=== PATIENT | female | born 1990 | race American Indian/Alaskan Native ===

== ENCOUNTER 2017-05-31 14:02 | Emergency (ER) | payer SELFPAY ==
[2017-05-31] MEDS ORDERED: ROCEPHIN IM ONE (15:52)
[2017-05-31] MEDS ORDERED: ZITHROMAX PO ONE (15:52)
[2017-05-31] MEDS ORDERED: XYLOCAINE 1% MPF 5 mL INFILTRATI ONE (15:52)
[2017-05-31 15:53] LABS: Bacteria,Urine 1+ /HPF (Negative); Bilirubin,Urine NEG (Negative); Blood,Urine NEG (Negative); Ketones,Urine NEG (Negative); Leukocyte Esterase,Urine NEG (Negative); Mucus,Urine 2+ /HPF; Nitrite,Urine NEG (Negative); Protein,Urine <15 mg/dL mg/dL (Negative)
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
[2017-05-31 17:33] VITALS: BP 132/82
== END 2017-05-31 17:33 | disposition home or self-care (01) ==
LOC: ED 14:02
DX: Z20.2 Contact with and (suspected) exposure to infections with a predominantly sexual mode of transmission (principal); R03.0 Elevated blood-pressure reading, without diagnosis of hypertension; F17.200 Nicotine dependence, unspecified, uncomplicated
CPT/HCPCS: 81001; 81025; 87591; 96372; 99283; J0696

== ENCOUNTER 2017-07-04 05:02 | Emergency (ER) | payer OTHER ==
[2017-07-04 05:16] VITALS: BP 127/80
[2017-07-04] MEDS ORDERED: DELTASONE PO ONE (08:36)
[2017-07-04] MEDS ORDERED: MOTRIN PO ONE (08:37)
--- NOTE | 2017-07-04 08:46 | Emergency Department Report ---
HPI - General Chief Complaint: Sore Throat Time Seen by Provider: 07/04/17 08:14 - HPI HPI: Patient is a 26-year-old female who presents to ED complaining of throat pain 4 days. Patient describes pain as throbbing in nature, 6 out of 10 intensity, nonradiating, intermittent throughout the day, localized to throat. Admits pain with swallowing and eating. Patient admits no appetite due to throat pain. Patient states she has urge to cough but cant cough most times. Patient also complains of left ear ache . Patient denies nausea/vomiting/abdominal pain/shortness of breath/chest pain/ headache/trauma. ED Past Medical Hx - Past Medical History Previous Medical History?: No Hx Kidney Stones: Yes - Surgical History Past Surgical History?: Yes Additional Surgical History: gallstones - Social History Smoking Status: Current Every Day Smoker Substance Use Type: None - Medications Home Medications: Home Medications Medication Instructions Recorded Confirmed Last Taken Type Cyclobenzaprine HCl [Flexeril 5 MG 5 mg PO Q8HR PRN #12 tab 10/30/15 Unknown Rx TAB] Carbamide Peroxide 6.5% [Ear Wax 1 - 2 drops OT TID #1 bottle 07/04/17 Unknown Rx Drops] Ibuprofen [Motrin 800 MG tab] 800 mg PO Q8HR PRN #20 tablet 07/04/17 Unknown Rx guaiFENesin [Robitussin] 200 mg PO Q4HR #80 ml 07/04/17 Unknown Rx ED Review of Systems ROS: Stated complaint: SORE THROAT Other details as noted in HPI Constitutional: denies: chills, fever Eyes: denies: eye pain, eye discharge, vision change ENT: throat pain. denies: ear pain, hearing loss, epistaxis, congestion Respiratory: denies: cough, shortness of breath, wheezing Cardiovascular: denies: chest pain, palpitations Endocrine: no symptoms reported Gastrointestinal: denies: abdominal pain, nausea, vomiting, diarrhea Genitourinary: denies: urgency, dysuria, frequency, hematuria, discharge Musculoskeletal: myalgia. denies: back pain, joint swelling, arthralgia Skin: denies: rash, lesions Neurological: denies: headache, weakness, numbness, paresthesias, confusion, abnormal gait Psychiatric: denies: anxiety, depression Hematological/Lymphatic: denies: easy bleeding, easy bruising Physical Exam - Physical Exam Vital Signs: Vital Signs 07/04/17 05:12 Temperature 97.6 F Pulse Rate 78 Respiratory 18 Rate Blood Pressure 127/80 O2 Sat by Pulse 98 Oximetry Physical Exam: GENERAL: Alert and oriented x3, no apparent distress, Normal Gait, atraumatic. HEAD: Head is normocephalic and a-traumatic. EYES: Extra ocular muscles are intact. Pupils are equal, round, and reactive to light and accommodation. EARS: symetrical, atraumatic, non tender, ear canal filled with moderate cerumen bilat , tympanic membrance non inflamed. gross auditory nml bilaterally. NOSE: Nose symetrical, Nontender,Nares appeared normal. MOUTH:Mouth is well hydrated and without lesions. Tonsils nonerythematous or swollen, Uvula midline, Tongue not elevated. Mucous membranes are moist. Posterior pharynx clear, no exudate or lesions. Patent airways. NECK: Supple. Non edematous, No lymphadenopathy or thyromegaly. No C-spine tenderness LUNGS: Symetrical with respiration, No wheezing, no rales or crackles, CTAB. HEART: S1, S2 present, regular rate and rhythm without murmur, no rubs, no gallops. Non tender to palpation BACK: Full range of motion, no spinal tenderness, nontender to palpation. NEUROLOGIC: The patient is cooperative with no focal neurologic deficits. SKIN: Warm and dry, No lesions, No ulceration or induration present. ED Course Vital Signs 07/04/17 05:12 Temperature 97.6 F Pulse Rate 78 Respiratory 18 Rate Blood Pressure 127/80 O2 Sat by Pulse 98 Oximetry ED Medical Decision Making - Medical Decision Making 26-year-old male presents with pharyngitis. ED course: Rapid strep tests ordered rapid strep test negative, rapid influenza A/B negative Patient received 1 dose of Motrin, 60 mg of prednisone. Vital signs stable patient is in no acute or respiratory distress. Discussed findings with patient about the positive strep. Discussed treatment in ED with patient Discussed with the patient to increase fluid intake, vitamin C and appropriate rest Discussed home prescription for Ear wax drops for ears. Discussed with patient follow-up with primary care physician. Patient verbally states he understands and will comply to follow-up. Critical care attestation.: If time is entered above; I have spent that time in minutes in the direct care of this critically ill patient, excluding procedure time. ED Disposition Clinical Impression: Pharyngitis Qualifiers: Pharyngitis/tonsillitis etiology: unspecified etiology Qualified Code(s): J02.9 - Acute pharyngitis, unspecified Excess ear wax Qualifiers: Laterality: bilateral Qualified Code(s): H61.23 - Impacted cerumen, bilateral Disposition: TO HOME OR SELFCARE Is pt being admited?: No Does the pt Need Aspirin: No Condition: Stable Instructions: Carbamide Peroxide (Into the ear), Pharyngitis (ED), Cerumen Impaction (ED) Additional Instructions: Make sure to follow up with the primary care physician as discussed. Take all your medications as you've been prescribed. If you have any worsening symptoms or develop new symptoms please return to ED immediately. Prescriptions: Carbamide Peroxide 6.5% [Ear Wax Drops] 1 - 2 drops OT TID #1 bottle guaiFENesin [Robitussin] 200 mg PO Q4HR #80 ml Ibuprofen [Motrin 800 MG tab] 800 mg PO Q8HR PRN #20 tablet PRN Reason: Pain Referrals: PRIMARY CAREMD [Primary Care Provider] - 3-5 Days IRMA ROBLES MD [Staff Physician] - 3-5 Days [facility] [Outside] - 3-5 Days [facility] [Outside] - 3-5 Days Forms: Work/School Release Form(ED) Time of Disposition: 08:56
== END 2017-07-04 09:13 | disposition home or self-care (01) ==
LOC: ED 05:02
DX: J02.9 Acute pharyngitis, unspecified (principal); H61.23 Impacted cerumen, bilateral; F17.200 Nicotine dependence, unspecified, uncomplicated
CPT/HCPCS: 87116; 87400; 87430; 99282; J7512

== ENCOUNTER 2017-10-13 17:51 | Emergency (ER) | payer MEDICAID, OTHER ==
[2017-10-13 18:29] LABS: Basophils % (Auto) 0.4 % (0.0-1.8); Eosinophils % (Auto) 0.5 % (0.0-4.3); Hematocrit 42.4 % (30.3-42.9); Hemoglobin 13.3 gm/dl (10.1-14.3); Lymphocytes # (Auto) 2.2 K/mm3 (1.2-5.4); Lymphocytes % (Auto) 31.7 % (13.4-35.0); Mean Corpuscular HGB Conc 31 % (30-34); Mean Corpuscular Volume 80 fl (79-97); Monocytes # (Auto) 0.4 K/mm3 (0.0-0.8); Platelet Count 186 K/mm3 (140-440); Red Blood Count 5.32 M/mm3 (3.65-5.03); Red Cell Distribution Width 16.2 % (13.2-15.2)
[2017-10-13 18:33] LABS: Mean Corpuscular Hemoglobin 25 pg (28-32)
[2017-10-13 18:34] LABS: Bacteria,Urine 1+ /HPF (Negative); Bilirubin,Urine SM (Negative); Blood,Urine LG (Negative); Color,Urine Amber (Yellow); Mucus,Urine 3+ /HPF
[2017-10-13 18:36] LABS: HCG Qualitative,Urine Negative (Negative)
[2017-10-13 18:44] LABS: Ictotest,Urine Negative (Negative)
[2017-10-13 18:45] LABS: Alanine Aminotransferase 15 units/L (7-56); Albumin 4.9 g/dL (3.9-5); BUN/Creatinine Ratio 10; Blood Urea Nitrogen 8 mg/dL (7-17); Hemolysis Index 3; Lipase 22 units/L (13-60)
[2017-10-14] MEDS ORDERED: BACTRIM DS PO ONE (00:22)
[2017-10-14] MEDS ORDERED: TORADOL IM ONE (00:23)
--- NOTE | 2017-10-14 00:28 | Emergency Department Report ---
ED Abdominal Pain HPI - General Chief Complaint: Abdominal Pain Stated Complaint: ABDOMINAL PAIN Time Seen by Provider: 10/13/17 23:32 Source: patient Mode of arrival: Ambulatory Limitations: No Limitations - History of Present Illness Initial Comments: Percocet a month ago she missed a period however today she is presently bleeding and complain of abdominal pain he described. Area and also in the lower back moderate intensity and nonradiating with no aggravating or relieving factor. Patient also complains of a headache and shortness of breath. The headache is of mild to moderate intensity nonradiating with no aggravating or relieving factor. MD Complaint: abdominal pain Onset/Timin (day) -: Gradual Location: suprapubic Radiation: none Severity: moderate Quality: cramping Consistency: constant Improves With: nothing Worsens With: nothing Context: other (menstruation) Associated Symptoms: other (headache) - Related Data Previous Rx's Medication Instructions Recorded Last Taken Type Cyclobenzaprine HCl [Flexeril 5 MG 5 mg PO Q8HR PRN #12 tab 10/30/15 Unknown Rx TAB] Carbamide Peroxide 6.5% [Ear Wax 1 - 2 drops OT TID #1 bottle 07/04/17 Unknown Rx Drops] Ibuprofen [Motrin 800 MG tab] 800 mg PO Q8HR PRN #20 tablet 07/04/17 Unknown Rx guaiFENesin [Robitussin] 200 mg PO Q4HR #80 ml 07/04/17 Unknown Rx Sulfamethoxazole/Trimethoprim 1 each PO BID #6 tablet 10/14/17 Unknown Rx [Bactrim DS TAB] Allergies Allergy/AdvReac Type Severity Reaction Status Date / Time No Known Allergies Allergy Verified 10/30/15 01:09 ED Review of Systems ROS: Stated complaint: ABDOMINAL PAIN Other details as noted in HPI Comment: All other systems reviewed and negative ED Past Medical Hx - Past Medical History Hx Kidney Stones: Yes - Surgical History Additional Surgical History: gallstones - Social History Smoking Status: Current Every Day Smoker Substance Use Type: Alcohol - Medications Home Medications: Home Medications Medication Instructions Recorded Confirmed Last Taken Type Cyclobenzaprine HCl [Flexeril 5 MG 5 mg PO Q8HR PRN #12 tab 10/30/15 Unknown Rx TAB] Carbamide Peroxide 6.5% [Ear Wax 1 - 2 drops OT TID #1 bottle 07/04/17 Unknown Rx Drops] Ibuprofen [Motrin 800 MG tab] 800 mg PO Q8HR PRN #20 tablet 07/04/17 Unknown Rx guaiFENesin [Robitussin] 200 mg PO Q4HR #80 ml 07/04/17 Unknown Rx Sulfamethoxazole/Trimethoprim 1 each PO BID #6 tablet 10/14/17 Unknown Rx [Bactrim DS TAB] ED Physical Exam - General Limitations: No Limitations General appearance: alert, in no apparent distress - Head Head exam: Present: atraumatic, normocephalic - Eye Eye exam: Present: normal appearance - ENT ENT exam: Present: mucous membranes moist - Neck Neck exam: Present: normal inspection - Respiratory Respiratory exam: Present: normal lung sounds bilaterally. Absent: respiratory distress - Cardiovascular Cardiovascular Exam: Present: regular rate, normal rhythm. Absent: systolic murmur, diastolic murmur, rubs, gallop - GI/Abdominal GI/Abdominal exam: Present: soft, tenderness (suprapubic tenderness), normal bowel sounds - Rectal Rectal exam: Present: deferred - Extremities Exam Extremities exam: Present: normal inspection - Back Exam Back exam: Present: normal inspection - Neurological Exam Neurological exam: Present: alert, oriented X3 - Psychiatric Psychiatric exam: Present: normal affect, normal mood - Skin Skin exam: Present: warm, intact, normal color ED Course Vital Signs 10/13/17 17:59 Temperature 97.7 F Pulse Rate 77 Respiratory 18 Rate Blood Pressure 144/95 O2 Sat by Pulse 100 Oximetry ED Medical Decision Making - Lab Data Result diagrams: 10/13/17 18:13 10/13/17 18:13 Critical care attestation.: If time is entered above; I have spent that time in minutes in the direct care of this critically ill patient, excluding procedure time. ED Disposition Clinical Impression: UTI (urinary tract infection), Dysmenorrhea Disposition: - TO HOME OR SELFCARE Is pt being admited?: No Does the pt Need Aspirin: No Condition: Stable Instructions: Abdominal Pain (ED) Additional Instructions: Increase fluid intake. Take Motrin or Tylenol as needed for pain Prescriptions: Sulfamethoxazole/Trimethoprim [Bactrim DS TAB] 1 each PO BID #6 tablet Referrals: PRICILA WU MD [Primary Care Provider] - 3-5 Days Time of Disposition: 00:28 Print Language: MARTINIQUAIS
[2017-10-14 00:40] VITALS: BP 148/88
== END 2017-10-14 00:40 | disposition home or self-care (01) ==
LOC: ED 17:51
DX: N39.0 Urinary tract infection, site not specified (principal); N94.6 Dysmenorrhea, unspecified; F17.200 Nicotine dependence, unspecified, uncomplicated
CPT/HCPCS: 36415; 80053; 81001; 81025; 83690; 85025; 96372; 99283; J1885

== ENCOUNTER 2018-02-25 04:25 | Emergency (ER) | payer SELFPAY ==
[2018-02-25] MEDS ORDERED: ZOFRAN ONE (04:40)
[2018-02-25] MEDS ORDERED: DILAUDID ONE ×2 (04:40→05:29)
[2018-02-25] MEDS ORDERED: BOOSTRIX IM ONE ×2 (05:25→10:43)
[2018-02-25] MEDS ORDERED: DILAUDID IV ONE (08:12)
[2018-02-25] MEDS ORDERED: XYLOCAINE 2% INFILTRATI ONE (08:25)
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
[2018-02-25 08:49] LABS: BUN/Creatinine Ratio 8; Blood Urea Nitrogen 6 mg/dL (7-17); Calcium 9.4 mg/dL (8.4-10.2); Hemolysis Index 45
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
[2018-02-25] MEDS ORDERED: HYDROGEN PEROXIDE TP ONE (11:15)
[2018-02-25] MEDS ORDERED: NACL 0.9% IR ONE (11:15)
[2018-02-25] MEDS ORDERED: SUBLIMAZE IV ONE (11:30)
[2018-02-25] MEDS ORDERED: XYLOCAINE TOPICAL 5% TP ONE (11:42)
[2018-02-25] MEDS ORDERED: TRIPLE ANTIBIOTIC TP ONE (11:58)
[2018-02-25 13:52] VITALS: BP 135/88
== END 2018-02-25 12:30 | disposition home or self-care (01) ==
LOC: ED 04:25
DX: S71.112A Laceration without foreign body, left thigh, initial encounter (principal); F17.200 Nicotine dependence, unspecified, uncomplicated; Z79.899 Other long term (current) drug therapy; Z87.442 Personal history of urinary calculi; W23.0XXA Caught, crushed, jammed, or pinched between moving objects, initial encounter; Y93.89 Activity, other specified; Y99.8 Other external cause status; Y92.098 Other place in other non-institutional residence as the place of occurrence of the external cause
CPT/HCPCS: 12002; 36415; 73552; 73590; 80048; 82550; 86850; 86900; 86901; 90471; 90715; 96374; 96375; 99284; J1170; J2405; J3010; A6250

== ENCOUNTER 2019-08-25 20:01 | Outpatient (CLI) | payer MEDICAID ==
--- NOTE | 2019-08-25 22:37 | Ultrasound Report ---
ULTRASOUND OBSTETRIC INDICATION / CLINICAL INFORMATION: r/o abruption.. Clinical Gestational Age (GA): 31 weeks 1 day TECHNIQUE: Transabdominal. COMPARISON: None available. FINDINGS: There is a single intrauterine in cephalic position. The heart rate is 154 bpm. The p lacenta is posterior and fundal toward the left. Grade 2 placenta is noted. No significant abnormalit y of the placenta is identified. There is no sonographic evidence to suggest placental abruption. IMPRESSION: No acute sonographic abnormality. Signer Name: Dereck Cheema MD Signed: 08/25/2019 10:32 PM Workstation Name: [id number]
[2019-08-25 23:40] VITALS: BP 130/66
== END 2019-08-26 00:10 | disposition home or self-care (01) ==
LOC: TRG 20:01
PROVIDERS: ATTEND Obstetrics & Gynecology
DX: O26.893 Other specified pregnancy related conditions, third trimester (principal); R10.9 Unspecified abdominal pain; Z3A.31 31 weeks gestation of pregnancy
CPT/HCPCS: 76815

== ENCOUNTER 2019-10-02 18:46 | Outpatient (CLI) | payer MEDICAID ==
[2019-10-02 19:35] LABS: Hematocrit 33.3 % (30.3-42.9); Hemoglobin 10.9 gm/dl (10.1-14.3); Mean Corpuscular HGB Conc 33 % (30-34); Mean Corpuscular Volume 83 fl (79-97); Platelet Count 153 K/mm3 (140-440); Red Blood Count 4.01 M/mm3 (3.65-5.03); Red Cell Distribution Width 15.2 % (13.2-15.2)
[2019-10-02 19:55] LABS: Bacteria,Urine 1+ /HPF (Negative); Bilirubin,Urine NEG (Negative); Blood,Urine NEG (Negative); Color,Urine Yellow (Yellow); Mucus,Urine 2+ /HPF
[2019-10-02 19:59] LABS: Alanine Aminotransferase 13 units/L (7-56)
[2019-10-02 20:56] VITALS: BP 135/80
[2019-10-02] MEDS ORDERED: ACETAMINOPHEN 325 MG TAB PO ONE (22:10)
--- NOTE | 2019-10-02 23:05 | Event Note ---
Date: 10/02/19 Triage Note 10/02/2019 29 year old female at 36 4/7 weeks gestation sent over from office ([facility]-CORPORATE HUMAN RESOURCES MANAGER) for serial BPs and preeclamptic labs. She states she was given a jug at the office today to collect a 24 hour urine for total protein. Patient has chronic hypertension and states she takes Nifedipine daily. Patient denies swelling, visual disturbance, abdominal pain, leaking of fluid, vaginal bleeding or contractions. Patient reports active movement. Patient states she has had a mild headache today; oral Tylenol was given to patient in triage today with relief of headache. BPs stable and AST/ALT and platelet count normal. Patient reports complete resolution of headache. NST reactive. Active movement reported by patient. Abdomen soft and nontender. No swelling noted. Patient was discharged home with instructions to collect the 24 hour urine as ordered by OB-CORPORATE HUMAN RESOURCES MANAGER office, rest at home, count movements daily, and return to OB-CORPORATE HUMAN RESOURCES MANAGER office on Saturday10/05/2019 for follow up and BP check. Warning signs of late and BP warning signs discussed with patient. Patient voiced understanding of instructions.
[2019-10-03 00:16] LABS: Uric Acid 4.2 mg/dL (3.5-7.6)
== END 2019-10-02 22:41 | disposition home or self-care (01) ==
LOC: TRG 18:46
PROVIDERS: ATTEND Obstetrics & Gynecology
DX: O13.3 Gestational [pregnancy-induced] hypertension without significant proteinuria, third trimester (principal); Z3A.36 36 weeks gestation of pregnancy; N39.0 Urinary tract infection, site not specified
CPT/HCPCS: 36415; 81001; 82565; 83615; 84450; 84460; 84550; 85027; 87086

== ENCOUNTER 2019-10-08 20:50 | Inpatient (IN) | payer MEDICAID ==
[2019-10-08] MEDS ORDERED: LACTATED RINGERS 1,000 ML ONE (22:12)
[2019-10-08] MEDS ORDERED: MINERAL OIL 30 ML ORAL LIQD PO PRN (22:28)
[2019-10-08] MEDS ORDERED: ePHEDrine SULFATE 50 MG/1 ML INJ IV PRN (22:28)
[2019-10-08] MEDS ORDERED: AMPICILLIN/NS 2 GM/100 ML 2 GM/100 ML BAG IV ONE (22:28)
[2019-10-08] MEDS ORDERED: TERBUTALINE 1 MG/1 ML INJ IVP PRN (22:28)
[2019-10-08] MEDS ORDERED: LIDOCAINE (2%) 20 MG/1 ML VIAL 20 ML MDV INFILTRATI ONE (22:28)
[2019-10-08] MEDS ORDERED: BUTORPHANOL 2 MG/1 ML INJ IV PRN ×2 (22:28)
[2019-10-08] MEDS ORDERED: TERBUTALINE 1 MG/1 ML INJ SUB-Q PRN (22:28)
[2019-10-08] MEDS ORDERED: MAGNESIUM SULFATE 4 GM/100 ML BAG IV ONE (22:45)
[2019-10-08] MEDS ORDERED: OXYTOCIN 20 UNIT/1000ML DRIP 20 UNITS/1,000 ML BAG IV SCH (23:00)
[2019-10-08 23:01] LABS: Hematocrit 32.6 % (30.3-42.9); Hemoglobin 10.7 gm/dl (10.1-14.3); Mean Corpuscular HGB Conc 33 % (30-34); Mean Corpuscular Volume 83 fl (79-97); Platelet Count 148 K/mm3 (140-440); Red Blood Count 3.95 M/mm3 (3.65-5.03); Red Cell Distribution Width 15.1 % (13.2-15.2)
[2019-10-08] MEDS ORDERED: D5W/LACTATED RINGERS 1,000 ML IV ONE (23:48)
[2019-10-09] MEDS ORDERED: D5W/LACTATED RINGERS 1,000 ML IV SCH
[2019-10-09 00:49] LABS: Basophils % (Auto) 0.4 % (0.0-1.8); Eosinophils % (Auto) 0.7 % (0.0-4.3); Hematocrit 34.5 % (30.3-42.9); Hemoglobin 11.2 gm/dl (10.1-14.3); Lymphocytes # (Auto) 1.5 K/mm3 (1.2-5.4); Mean Corpuscular HGB Conc 32 % (30-34); Mean Corpuscular Volume 83 fl (79-97); Monocytes # (Auto) 0.5 K/mm3 (0.0-0.8); Monocytes % (Auto) 7.2 % (0.0-7.3); Platelet Count 168 K/mm3 (140-440); Red Blood Count 4.15 M/mm3 (3.65-5.03); Red Cell Distribution Width 15.5 % (13.2-15.2)
[2019-10-09] MEDS: LACTATED RINGERS 1,000 ML IV SCH ×2 (01:00→13:33)
[2019-10-09 01:09] LABS: Alanine Aminotransferase 17 units/L (7-56); Albumin 3.6 g/dL (3.9-5); BUN/Creatinine Ratio 16; Blood Urea Nitrogen 8 mg/dL (7-17); Hemolysis Index 3
--- NOTE | 2019-10-09 01:29 | History and Physical Report ---
History of Present Illness Date of examination: 10/08/19 Date of admission: 10/08/19 21:04 Chief complaint: 29 y/o AA female was sent by [facility] for an induction r/t CHTN. Pt denies any complaints and admits to active FM. Pt denies roth, visual problems, or epigastric pain. History of present illness: 29 y/o AA female presents at 37.2 wks per [facility] referral for an induction r/t CHTN. [facility] @ 5 2/7 wks. She was co managed by [facility] and [facility] for CHTN and marginal placenta previa. Pt was started on Procardia XL 60MG qd early in her preg. Other diagnosis include pos GBS, genital herpes, pos HBsAg, anemia, and vit D def. Labs: A pos, Antibody screen neg, pap normal, Rubella immune, VDRL neg, HIV neg, Hep C neg, HGB Electrophoresis AA, GC/chly/Trich neg, Vit D 14.3, Neg OSB, 1 hr gtt 79, GBS pos, Pos HBsAg, 24 hr urine 218 on 10/05. PUI?: No COVID19: Negative Past History Past Medical History: hypertension, other (Hep A, pos HBsAg ) Past Surgical History: no surgical history HOME DESIGNER History: chlamydia, hepatitis B, herpes Family/Genetic History: heart disease Social history: no significant social history - Obstetrical History Expected Date of Delivery: 10/27/19 Actual Gestation: 37 Week(s) 3 Day(s) : 2 Para: 1 Hx # Term Pregnancies: 1 Number of Pregnancies: 0 Spontaneous Abortions: 0 Induced : 0 Number of Living Children: 1 #1 Infant Gender: Female Method of Delivery: Vaginal Complications: other (htn) Medications and Allergies Allergies Allergy/AdvReac Type Severity Reaction Status Date / Time No Known Allergies Allergy Verified 10/02/19 19:13 Home Medications Medication Instructions Recorded Confirmed Last Taken Type Cyclobenzaprine HCl [Flexeril 5 MG 5 mg PO Q8HR PRN #12 tab 10/30/15 Unknown Rx TAB] Carbamide Peroxide 6.5% [Ear Wax 1 - 2 drops OT TID #1 bottle 07/04/17 Unknown Rx Drops] Ibuprofen [Motrin 800 MG tab] 800 mg PO Q8HR PRN #20 tablet 07/04/17 Unknown Rx Sulfamethoxazole/Trimethoprim 1 each PO BID #6 tablet 10/14/17 Unknown Rx [Bactrim DS TAB] Ondansetron [Zofran Odt] 4 mg PO Q8HR PRN #14 tab.rapdis 02/25/18 Unknown Rx cephALEXin [Keflex] 500 mg PO Q8HR #28 cap 02/25/18 Unknown Rx traMADoL [Ultram 50 MG tab] 50 mg PO Q4HR PRN #14 tablet 02/25/18 Unknown Rx Cholecalciferol (Vitamin D3) 10/02/19 Unknown History [Vitamin D3 50,000UNIT CAP] Ferrous Sulfate [Feosol 325 MG tab] 10/02/19 1 Day Ago History ~10/01/19 NIFEdipine XL [Procardia Xl] 10/02/19 1 Day Ago History ~10/01/19 Valacyclovir HCl [Valacyclovir] 10/02/19 10/02/19 History Active Meds: Active Medications Butorphanol Tartrate (Stadol) 1 mg IV Q2H PRN PRN Reason: Labor Pain Butorphanol Tartrate (Stadol) 2 mg IV Q2H PRN PRN Reason: Pain , Severe (7-10) Ephedrine Sulfate (Ephedrine Sulfate) 10 mg IV Q2M PRN PRN Reason: Hypotension Ferrous Sulfate (Feosol) 325 mg PO BID MICHELET Oxytocin/Sodium Chloride (Pitocin/Ns 20 Unit/1000ml Drip) 20 units in 1,000 mls @ 125 mls/hr IV DIRECT MICHELET Oxytocin/Sodium Chloride (Pitocin/Ns 30 Unit/500ml) 30 units in 500 mls @ 1 mls/hr IV TITR MICHELET; Protocol Oxytocin/Sodium Chloride (Pitocin/Ns 30 Unit/500ml) 30 units in 500 mls @ 0 mls/hr IV TITR MICHELET; Protocol Lactated Ringer's (Lactated Ringers) 1,000 mls @ 125 mls/hr IV DIRECT MICHELET Ampicillin Sodium (Ampicillin/Ns 1 Gm/50 Ml) 1 gm in 50 mls @ 100 mls/hr IV Q4HR MICHELET; Protocol Magnesium Sulfate (Magnesium Sulfate 40gm/1000ml) 40 gm in 1,000 mls @ 50 mls/hr IV DIRECT MICHELET Mineral Oil (Mineral Oil) 30 ml PO QHS PRN PRN Reason: Constipation Nifedipine (Procardia Xl) 60 mg PO QDAY MICHELET Stop: 10/12/19 10:01 Terbutaline Sulfate (Brethine) 0.25 mg SUB-Q ONCE PRN PRN Reason: Hyperstimulation/Hypertonicity Terbutaline Sulfate (Brethine) 0.25 mg IVP ONCE PRN PRN Reason: Hyperstimulation/Hypertonicity Review of Systems Eyes: deferred Ears, nose, mouth and throat: deferred Breasts: normal Genitourinary: normal appearance Rectal Exam: deferred - Vital Signs Vital signs: Vital Signs Temp Pulse Resp BP 98.5 F 98 H 18 143/84 10/08/19 21:39 10/08/19 21:39 10/08/19 21:39 10/08/19 21:39 Temp Pulse Resp BP Pulse Ox 98.5 F 111 H 18 124/58 100 10/08/19 21:39 10/09/19 00:53 10/08/19 21:39 10/09/19 00:02 10/09/19 00:53 - Physical Exam Breasts: Positive: normal Abdomen: Positive: soft, normal bowel sounds Genitourinary (Female): Positive: normal external genitalia, normal perenium Vulva: both: normal Vagina: Positive: normal moisture Uterus: Positive: enlarged Anus/Rectum: Positive: normal perianal skin Extremities: Positive: normal - Obstetrical FHR: category 2 Uterine Contraction Monitor Mode: External Cervical Dilatation: 3 Cervical Effacement Percentage: 50 station: -3 Uterine Contraction Frequency (min): none Uterine Tone Measurement Phase: Resting Results Result Diagrams: 10/09/19 00:18 Abnormal lab results 10/08/19 10/09/19 Range/Units 21:30 00:18 MCH 27 L 27 L (28-32) pg RDW 15.5 H (13.2-15.2) % Seg Neutrophils % 70.7 H (40.0-70.0) % All other labs normal. Assessment and Plan A: IUP@ 37.2 wks for induction CHTN Genital herpes Anemia + GBS + HBsAg p: Admit for Pitocin induction r/t CHTN Mg SO4 per protocal PIH labs and Monitor b/p GBS abt per protocal Notify NICU of + HBsAg Pain meds prn Anticipate POC agrees with plan - Patient Problems (1) IUP (intrauterine ), incidental Current Visit: Yes Status: Acute (2) Chronic benign essential hypertension in third trimester Current Visit: Yes Status: Acute (3) Anemia affecting Current Visit: Yes Status: Acute (4) GBS (group B streptococcus) infection Current Visit: Yes Status: Acute (5) Herpes genitalis in women Current Visit: Yes Status: Acute (6) HBsAg (hepatitis B surface antigen) positive, currently Current Visit: Yes Status: Acute
[2019-10-09 01:34] LABS: Bacteria,Urine 1+ /HPF (Negative); Mucus,Urine 2+ /HPF
--- NOTE | 2019-10-09 02:06 | Progress Note ---
Assessment and Plan O: FHT 182 with mod annamaria + accels neg decels no uc noted. Afebrile 98.7 b/p 122/62 HR 114 A: Maternal tachycardia CAT II FHT P: O2 applied, LLP, IVF bolus of D5LR UDS ordered MgSo4 on hold Will continue monitoring POC agrees with plan - Patient Problems (1) IUP (intrauterine ), incidental Current Visit: Yes Status: Acute (2) Chronic benign essential hypertension in third trimester Current Visit: Yes Status: Acute (3) Anemia affecting Current Visit: Yes Status: Acute (4) GBS (group B streptococcus) infection Current Visit: Yes Status: Acute (5) Herpes genitalis in women Current Visit: Yes Status: Acute (6) HBsAg (hepatitis B surface antigen) positive, currently Current Visit: Yes Status: Acute Subjective - Subjective Date of service: 10/08/19 Interval history: 29 y/o AA female presents at 37.2 wks per [facility] referral for an induction r/t CHTN. Pt initiated her pnc at [facility] OB-ANALYTICS SPECIALIST @ 5 2/7 wks. She was co managed by [facility] and [facility] for CHTN and marginal placenta previa. Pt was started on Procardia XL 60MG qd early in her preg. Other diagnosis include pos GBS, genital herpes, pos HBsAg, anemia, and vit D def. Labs: A pos, Antibody screen neg, pap normal, Rubella immune, VDRL neg, HIV neg, Hep C neg, HGB Electrophoresis AA, GC/chly/Trich neg, Vit D 14.3, Neg OSB, 1 hr gtt 79, GBS pos, Pos HBsAg, 24 hr urine 218 on 10/05. Patient reports: movement normal, other Objective - Vital Signs Vital Signs: Vital Signs - 12hr 10/08/19 10/08/19 10/08/19 21:39 22:01 22:17 Temperature 98.5 F Pulse Rate 98 H 96 H 104 H Respiratory 18 Rate Blood Pressure 145/90 150/90 Blood Pressure 143/84 [Left] O2 Sat by Pulse Oximetry 10/08/19 10/08/19 10/08/19 23:10 23:17 23:32 Temperature Pulse Rate 123 H 121 H 117 H Respiratory Rate Blood Pressure 131/78 127/68 118/62 Blood Pressure [Left] O2 Sat by Pulse Oximetry 0410/08/19 10/08/19 23:35 23:47 23:57 Temperature Pulse Rate 114 H 121 H 112 H Respiratory Rate Blood Pressure 123/62 122/62 Blood Pressure [Left] O2 Sat by Pulse 100 Oximetry 10/09/19 10/09/19 10/09/19 00:02 00:07 00:12 Temperature Pulse Rate 113 H 112 H 114 H Respiratory Rate Blood Pressure 124/58 Blood Pressure [Left] O2 Sat by Pulse 100 100 100 Oximetry 10/09/19 10/09/19 10/09/19 00:17 00:22 00:27 Temperature Pulse Rate 116 H 118 H 119 H Respiratory Rate Blood Pressure Blood Pressure [Left] O2 Sat by Pulse 100 100 100 Oximetry 10/09/19 10/09/19 10/09/19 00:32 00:48 00:53 Temperature Pulse Rate 122 H 113 H 111 H Respiratory Rate Blood Pressure Blood Pressure [Left] O2 Sat by Pulse 99 99 100 Oximetry 10/09/19 10/09/19 10/09/19 00:58 01:03 01:08 Temperature Pulse Rate 114 H 111 H 125 H Respiratory Rate Blood Pressure Blood Pressure [Left] O2 Sat by Pulse 100 99 100 Oximetry 10/09/19 10/09/19 10/09/19 01:13 01:18 01:20 Temperature Pulse Rate 107 H 110 H 109 H Respiratory Rate Blood Pressure 135/64 Blood Pressure [Left] O2 Sat by Pulse 99 100 Oximetry 10/09/19 10/09/19 10/09/19 01:23 01:28 01:33 Temperature Pulse Rate 107 H 108 H 101 H Respiratory Rate Blood Pressure Blood Pressure [Left] O2 Sat by Pulse 98 100 99 Oximetry 10/09/19 10/09/19 10/09/19 01:38 01:43 01:48 Temperature Pulse Rate 105 H 99 H 100 H Respiratory Rate Blood Pressure Blood Pressure [Left] O2 Sat by Pulse 100 100 100 Oximetry 10/09/19 10/09/19 10/09/19 01:50 01:53 01:58 Temperature Pulse Rate 100 H 101 H 106 H Respiratory Rate Blood Pressure 133/70 Blood Pressure [Left] O2 Sat by Pulse 100 99 Oximetry - Exam Breasts: normal Abdomen: Present: soft Vulva: both: normal FHR: category 2 Extremities: normal - Labs Labs: Abnormal Labs 10/08/19 10/09/19 10/09/19 21:30 00:18 00:18 MCH 27 L 27 L RDW 15.5 H Seg Neutrophils % 70.7 H Sodium 133 L Potassium 3.2 L Carbon Dioxide 20 L Creatinine 0.5 L Glucose 150 H Albumin 3.6 L Laboratory Results - last 24 hr 10/08/19 10/08/19 10/08/19 00:50 21:30 21:30 WBC 7.2 RBC 3.95 Hgb 10.7 Hct 32.6 MCV 83 MCH 27 L MCHC 33 RDW 15.1 Plt Count 148 Lymph % (Auto) [place] % (Auto) Eos % (Auto) Baso % (Auto) Lymph # [place] # Eos # Baso # Seg Neutrophils % Seg Neutrophils # D-Dimer Sodium Potassium Chloride Carbon Dioxide Anion Gap BUN Creatinine Estimated GFR BUN/Creatinine Ratio Glucose Calcium Total Bilirubin AST ALT Alkaline Phosphatase Total Protein Albumin Albumin/Globulin Ratio Urine WBC (Auto) 6.0 Urine RBC (Auto) 2.0 U Epithel Cells (Auto) 11.0 Urine Bacteria (Auto) 1+ Urine Mucus 2+ Blood Type A POSITIVE Antibody Screen Negative 10/09/19 10/09/19 10/09/19 00:18 00:18 00:18 WBC 6.9 RBC 4.15 Hgb 11.2 Hct 34.5 MCV 83 MCH 27 L MCHC 32 RDW 15.5 H Plt Count 168 Lymph % (Auto) 21.0 [place] % (Auto) 7.2 Eos % (Auto) 0.7 Baso % (Auto) 0.4 Lymph # 1.5 [place] # 0.5 Eos # 0.0 Baso # 0.0 Seg Neutrophils % 70.7 H Seg Neutrophils # 4.9 D-Dimer 195.48 Sodium 133 L Potassium 3.2 L Chloride 101.8 Carbon Dioxide 20 L Anion Gap 14 BUN 8 Creatinine 0.5 L Estimated GFR > 60 BUN/Creatinine Ratio 16 Glucose 150 H Calcium 9.0 Total Bilirubin 0.20 AST 21 ALT 17 Alkaline Phosphatase 70 Total Protein 6.4 Albumin 3.6 L Albumin/Globulin Ratio 1.3 Urine WBC (Auto) Urine RBC (Auto) U Epithel Cells (Auto) Urine Bacteria (Auto) Urine Mucus Blood Type Antibody Screen
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
[2019-10-09] MEDS ORDERED: ACETAMINOPHEN 325 MG TAB PO ONE (02:30)
[2019-10-09] MEDS ORDERED: ACETAMINOPHEN 325 MG TAB ONE (02:53)
[2019-10-09] MEDS: OXYTOCIN DRIP 30 UNITS/500 ML BAG IV SCH ×2 (03:05→19:34)
[2019-10-09 03:31] LABS: C-Reactive Protein 0.3 mg/dL (0.00-1.30)
[2019-10-09 03:35] LABS: Uric Acid 4.6 mg/dL (3.5-7.6)
[2019-10-09] MEDS: AMPICILLIN/NS 1 GM/50 ML 1 GM/50 ML BAG IV SCH ×3 (04:58→14:15)
--- NOTE | 2019-10-09 06:43 | Event Note ---
Date: 10/09/19 Per US done 10/08/19 Placenta is fundal, no marginal placenta previa present. US in chart. Ferdinand Olmos MD
--- NOTE | 2019-10-09 09:40 | Progress Note ---
Assessment and Plan - Patient Problems (1) 37 weeks gestation of Current Visit: Yes Status: Acute (2) Encounter for induction of labor Current Visit: Yes Status: Acute Plan to address problem: Continue current management Pitocin @ 8 mu/min AROM for labor augmentation, if indicated Anticipate vaginal delivery (3) Chronic hypertension with superimposed pre-eclampsia Current Visit: Yes Status: Acute Plan to address problem: BPs stable Magnesium sulfate therapy on hold Continue Procardia XL 60mg PO qd (4) GBS (group B streptococcus) infection Current Visit: Yes Status: Acute Plan to address problem: Continue ampicillin for GBS prophylaxis Subjective - Subjective Date of service: 10/09/19 Principal diagnosis: IUP @ 37w3d; IOL for Chronic HTN with Superimposed Pre- eclampsia 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: 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, Obstetrical Progress Notes and Event Note Patient reports: movement normal, contractions, other (denies headache, visual disturbances, RUQ pain or N/V), no loss of fluid, no vaginal bleeding Objective - Vital Signs Vital Signs: Vital Signs - 12hr 10/08/19 10/08/19 10/08/19 21:39 22:01 22:17 Temperature 98.5 F Pulse Rate 98 H 96 H 104 H Respiratory 18 Rate Blood Pressure 145/90 150/90 Blood Pressure 143/84 [Left] O2 Sat by Pulse Oximetry 10/08/19 10/08/19 10/08/19 23:10 23:17 23:32 Temperature Pulse Rate 123 H 121 H 117 H Respiratory Rate Blood Pressure 131/78 127/68 118/62 Blood Pressure [Left] O2 Sat by Pulse Oximetry 10/08/19 10/08/19 10/08/19 23:35 23:47 23:57 Temperature Pulse Rate 114 H 121 H 112 H Respiratory Rate Blood Pressure 123/62 122/62 Blood Pressure [Left] O2 Sat by Pulse 100 Oximetry 10/09/19 10/09/19 10/09/19 00:02 00:07 00:12 Temperature Pulse Rate 113 H 112 H 114 H Respiratory Rate Blood Pressure 124/58 Blood Pressure [Left] O2 Sat by Pulse 100 100 100 Oximetry 10/09/19 10/09/19 10/09/19 00:17 00:22 00:27 Temperature Pulse Rate 116 H 118 H 119 H Respiratory Rate Blood Pressure Blood Pressure [Left] O2 Sat by Pulse 100 100 100 Oximetry 10/09/19 10/09/19 10/09/19 00:32 00:48 00:53 Temperature Pulse Rate 122 H 113 H 111 H Respiratory Rate Blood Pressure Blood Pressure [Left] O2 Sat by Pulse 99 99 100 Oximetry 10/09/19 10/09/19 10/09/19 00:58 01:03 01:08 Temperature Pulse Rate 114 H 111 H 125 H Respiratory Rate Blood Pressure Blood Pressure [Left] O2 Sat by Pulse 100 99 100 Oximetry 10/09/19 10/09/19 10/09/19 01:13 01:18 01:20 Temperature Pulse Rate 107 H 110 H 109 H Respiratory Rate Blood Pressure 135/64 Blood Pressure [Left] O2 Sat by Pulse 99 100 Oximetry 10/09/19 10/09/19 10/09/19 01:23 01:28 01:33 Temperature Pulse Rate 107 H 108 H 101 H Respiratory Rate Blood Pressure Blood Pressure [Left] O2 Sat by Pulse 98 100 99 Oximetry 10/09/19 10/09/19 10/09/19 01:38 01:43 01:48 Temperature Pulse Rate 105 H 99 H 100 H Respiratory Rate Blood Pressure Blood Pressure [Left] O2 Sat by Pulse 100 100 100 Oximetry 10/09/19 10/09/19 10/09/19 01:50 01:53 01:58 Temperature Pulse Rate 100 H 101 H 106 H Respiratory Rate Blood Pressure 133/70 Blood Pressure [Left] O2 Sat by Pulse 100 99 Oximetry 10/09/19 10/09/19 10/09/19 02:03 02:08 02:22 Temperature Pulse Rate 103 H 99 H 99 H Respiratory Rate Blood Pressure Blood Pressure [Left] O2 Sat by Pulse 100 99 99 Oximetry 10/09/19 10/09/19 10/09/19 02:27 02:32 02:37 Temperature Pulse Rate 100 H 97 H 105 H Respiratory Rate Blood Pressure Blood Pressure [Left] O2 Sat by Pulse 99 99 100 Oximetry 10/09/19 10/09/19 10/09/19 02:42 02:47 02:50 Temperature Pulse Rate 95 H 92 H 94 H Respiratory Rate Blood Pressure 120/66 Blood Pressure [Left] O2 Sat by Pulse 99 99 Oximetry 10/09/19 10/09/19 10/09/19 02:52 02:58 03:03 Temperature Pulse Rate 97 H 102 H 92 H Respiratory Rate Blood Pressure Blood Pressure [Left] O2 Sat by Pulse 100 98 98 Oximetry 10/09/19 10/09/19 10/09/19 03:08 03:13 03:26 Temperature Pulse Rate 94 H 92 H 102 H Respiratory Rate Blood Pressure Blood Pressure [Left] O2 Sat by Pulse 99 99 100 Oximetry 10/09/19 10/09/19 10/09/19 03:31 03:36 03:41 Temperature Pulse Rate 96 H 92 H 89 Respiratory Rate Blood Pressure Blood Pressure [Left] O2 Sat by Pulse 99 99 99 Oximetry 10/09/19 10/09/19 10/09/19 03:46 03:50 03:51 Temperature Pulse Rate 97 H 84 86 Respiratory Rate Blood Pressure 112/66 Blood Pressure [Left] O2 Sat by Pulse 99 99 Oximetry 10/09/19 10/09/19 10/09/19 03:56 04:00 04:01 Temperature 98 F Pulse Rate 87 86 Respiratory Rate Blood Pressure Blood Pressure [Left] O2 Sat by Pulse 99 99 Oximetry 10/09/19 10/09/19 10/09/19 04:06 04:11 04:16 Temperature Pulse Rate 88 87 104 H Respiratory Rate Blood Pressure Blood Pressure [Left] O2 Sat by Pulse 98 99 99 Oximetry 10/09/19 10/09/19 10/09/19 04:20 04:21 04:26 Temperature Pulse Rate 83 93 H 86 Respiratory Rate Blood Pressure 111/61 Blood Pressure [Left] O2 Sat by Pulse 100 98 Oximetry 10/09/19 10/09/19 10/09/19 04:31 04:36 04:41 Temperature Pulse Rate 85 82 86 Respiratory Rate Blood Pressure Blood Pressure [Left] O2 Sat by Pulse 99 99 98 Oximetry 10/09/19 10/09/19 10/09/19 04:46 04:51 04:56 Temperature Pulse Rate 92 H 90 85 Respiratory Rate Blood Pressure 115/64 Blood Pressure [Left] O2 Sat by Pulse 100 98 98 Oximetry 10/09/19 10/09/19 10/09/19 05:06 05:11 05:16 Temperature Pulse Rate 96 H 88 78 Respiratory Rate Blood Pressure Blood Pressure [Left] O2 Sat by Pulse 100 99 98 Oximetry 10/09/19 10/09/19 10/09/19 05:20 05:21 05:26 Temperature Pulse Rate 76 75 82 Respiratory Rate Blood Pressure 114/68 Blood Pressure [Left] O2 Sat by Pulse 98 100 Oximetry 10/09/19 10/09/19 10/09/19 05:31 05:36 05:41 Temperature Pulse Rate 78 75 74 Respiratory Rate Blood Pressure Blood Pressure [Left] O2 Sat by Pulse 99 99 98 Oximetry 10/09/19 10/09/19 10/09/19 05:46 05:50 05:51 Temperature Pulse Rate 75 77 76 Respiratory Rate Blood Pressure 127/76 Blood Pressure [Left] O2 Sat by Pulse 100 99 Oximetry 10/09/19 10/09/19 10/09/19 05:56 06:01 06:06 Temperature Pulse Rate 75 77 75 Respiratory Rate Blood Pressure Blood Pressure [Left] O2 Sat by Pulse 98 98 98 Oximetry 10/09/19 10/09/19 10/09/19 06:11 06:16 06:21 Temperature Pulse Rate 78 77 78 Respiratory Rate Blood Pressure Blood Pressure [Left] O2 Sat by Pulse 98 98 97 Oximetry 10/09/19 10/09/19 10/09/19 06:22 06:26 06:31 Temperature Pulse Rate 78 78 86 Respiratory Rate Blood Pressure 135/79 Blood Pressure [Left] O2 Sat by Pulse 98 99 Oximetry 10/09/19 10/09/19 10/09/19 06:36 06:41 06:46 Temperature Pulse Rate 73 67 70 Respiratory Rate Blood Pressure Blood Pressure [Left] O2 Sat by Pulse 99 99 99 Oximetry 10/09/19 10/09/19 10/09/19 06:51 06:56 07:01 Temperature Pulse Rate 72 73 74 Respiratory Rate Blood Pressure 137/81 Blood Pressure [Left] O2 Sat by Pulse 99 99 100 Oximetry 10/09/19 10/09/19 10/09/19 07:06 07:11 07:16 Temperature Pulse Rate 77 75 71 Respiratory Rate Blood Pressure Blood Pressure [Left] O2 Sat by Pulse 100 99 100 Oximetry 10/09/19 10/09/19 10/09/19 07:20 07:21 07:24 Temperature 98.2 F Pulse Rate 76 71 Respiratory 16 Rate Blood Pressure 130/80 Blood Pressure [Left] O2 Sat by Pulse 100 Oximetry 10/09/19 10/09/19 10/09/19 07:33 07:38 07:43 Temperature Pulse Rate 90 75 82 Respiratory Rate Blood Pressure Blood Pressure [Left] O2 Sat by Pulse 100 100 100 Oximetry 10/09/19 10/09/19 10/09/19 07:48 07:50 07:53 Temperature Pulse Rate 77 73 77 Respiratory Rate Blood Pressure 123/77 Blood Pressure [Left] O2 Sat by Pulse 100 100 Oximetry 10/09/19 10/09/19 10/09/19 07:58 08:03 08:08 Temperature Pulse Rate 72 74 69 Respiratory Rate Blood Pressure Blood Pressure [Left] O2 Sat by Pulse 100 100 100 Oximetry 10/09/19 10/09/19 10/09/19 08:13 08:18 08:21 Temperature Pulse Rate 84 70 70 Respiratory Rate Blood Pressure 127/83 Blood Pressure [Left] O2 Sat by Pulse 100 99 Oximetry 10/09/19 10/09/19 10/09/19 08:23 08:28 08:33 Temperature Pulse Rate 70 69 68 Respiratory Rate Blood Pressure Blood Pressure [Left] O2 Sat by Pulse 99 99 98 Oximetry 10/09/19 10/09/19 10/09/19 08:38 08:43 08:48 Temperature Pulse Rate 71 73 75 Respiratory Rate Blood Pressure Blood Pressure [Left] O2 Sat by Pulse 98 99 98 Oximetry 10/09/19 10/09/19 10/09/19 08:52 08:53 08:58 Temperature Pulse Rate 70 76 77 Respiratory Rate Blood Pressure 145/82 Blood Pressure [Left] O2 Sat by Pulse 98 100 Oximetry 10/09/19 10/09/19 10/09/19 09:03 09:08 09:13 Temperature Pulse Rate 76 80 70 Respiratory Rate Blood Pressure Blood Pressure [Left] O2 Sat by Pulse 100 98 99 Oximetry 10/09/19 10/09/19 10/09/19 09:18 09:21 09:23 Temperature Pulse Rate 77 75 70 Respiratory Rate Blood Pressure 133/90 Blood Pressure [Left] O2 Sat by Pulse 98 100 Oximetry 10/09/19 10/09/19 09:28 09:33 Temperature Pulse Rate 85 75 Respiratory Rate Blood Pressure Blood Pressure [Left] O2 Sat by Pulse 99 99 Oximetry - Exam Abdomen: Present: normal appearance, soft FHR: auscultation normal, category 1 FHR comments: baseline 130, moderate variability, 15x15 accels, no decels Uterine Contraction Monitor Mode: External Cervical Dilatation: 3 Cervical Effacement Percentage: 40 station: -3 Uterine Contraction Pattern: Regular - Labs Labs: Abnormal Labs 10/08/19 10/08/19 10/09/19 21:30 21:30 00:18 MCH 27 L 27 L RDW 15.5 H Seg Neutrophils % 70.7 H Sodium Potassium Carbon Dioxide Creatinine Glucose Lactate Dehydrogenase 277 H Albumin 10/09/19 00:18 MCH RDW Seg Neutrophils % Sodium 133 L Potassium 3.2 L Carbon Dioxide 20 L Creatinine 0.5 L Glucose 150 H Lactate Dehydrogenase Albumin 3.6 L Laboratory Results - last 24 hr 10/08/19 10/08/19 10/08/19 00:50 21:30 21:30 WBC 7.2 RBC 3.95 Hgb 10.7 Hct 32.6 MCV 83 MCH 27 L MCHC 33 RDW 15.1 Plt Count 148 Lymph % (Auto) Forest % (Auto) Eos % (Auto) Baso % (Auto) Lymph # Forest # Eos # Baso # Seg Neutrophils % Seg Neutrophils # D-Dimer Sodium Potassium Chloride Carbon Dioxide Anion Gap BUN Creatinine Estimated GFR BUN/Creatinine Ratio Glucose Uric Acid Calcium Ferritin 15.4 Total Bilirubin AST ALT Alkaline Phosphatase Lactate Dehydrogenase C-Reactive Protein Total Protein Albumin Albumin/Globulin Ratio Urine WBC (Auto) 6.0 Urine RBC (Auto) 2.0 U Epithel Cells (Auto) 11.0 Urine Bacteria (Auto) 1+ Urine Mucus 2+ Blood Type Antibody Screen 10/08/19 10/08/19 10/09/19 21:30 21:30 00:18 WBC RBC Hgb Hct MCV MCH MCHC RDW Plt Count Lymph % (Auto) Forest % (Auto) Eos % (Auto) Baso % (Auto) Lymph # Forest # Eos # Baso # Seg Neutrophils % Seg Neutrophils # D-Dimer 195.48 Sodium Potassium Chloride Carbon Dioxide Anion Gap BUN Creatinine Estimated GFR BUN/Creatinine Ratio Glucose Uric Acid Calcium Ferritin Total Bilirubin AST ALT Alkaline Phosphatase Lactate Dehydrogenase 277 H C-Reactive Protein 0.30 Total Protein Albumin Albumin/Globulin Ratio Urine WBC (Auto) Urine RBC (Auto) U Epithel Cells (Auto) Urine Bacteria (Auto) Urine Mucus Blood Type A POSITIVE Antibody Screen Negative 10/09/19 10/09/19 00:18 00:18 WBC 6.9 RBC 4.15 Hgb 11.2 Hct 34.5 MCV 83 MCH 27 L MCHC 32 RDW 15.5 H Plt Count 168 Lymph % (Auto) 21.0 Forest % (Auto) 7.2 Eos % (Auto) 0.7 Baso % (Auto) 0.4 Lymph # 1.5 Forest # 0.5 Eos # 0.0 Baso # 0.0 Seg Neutrophils % 70.7 H Seg Neutrophils # 4.9 D-Dimer Sodium 133 L Potassium 3.2 L Chloride 101.8 Carbon Dioxide 20 L Anion Gap 14 BUN 8 Creatinine 0.5 L Estimated GFR > 60 BUN/Creatinine Ratio 16 Glucose 150 H Uric Acid 4.6 Calcium 9.0 Ferritin Total Bilirubin 0.20 AST 21 ALT 17 Alkaline Phosphatase 70 Lactate Dehydrogenase C-Reactive Protein Total Protein 6.4 Albumin 3.6 L Albumin/Globulin Ratio 1.3 Urine WBC (Auto) Urine RBC (Auto) U Epithel Cells (Auto) Urine Bacteria (Auto) Urine Mucus Blood Type Antibody Screen
[2019-10-09] MEDS ORDERED: NIFEdipine XL 60 MG TAB PO SCH (10:00)
[2019-10-09] MEDS: FERROUS SULFATE 325 MG TAB PO SCH (10:09)
[2019-10-09 15:23] LABS: Amphetamine Screen,Urine PRESUMPTIVE NEGATIVE; Benzodiazepines Screen,Urine PRESUMPTIVE NEGATIVE; Cocaine Screen,Urine PRESUMPTIVE NEGATIVE; Methadone Screen,Urine PRESUMPTIVE NEGATIVE; Opiate Screen,Urine PRESUMPTIVE NEGATIVE
[2019-10-09 15:36] LABS: Cannabinoid Screen,Urine PRESUMPTIVE POSITIVE
--- NOTE | 2019-10-09 18:59 | Event Note ---
Date: 10/09/19 Assumed care of patient. Patient is having labor induced due to chronic hypertension. BPs are controlled. Patient denies headache, visual disturbance, nausea or vomiting, abdominal pain, generalized swelling. Patient reports irregular mild contractions. She denies LOF or VB. FHR tracing is category 1. Irregular mild contractions noted. SVE 3.5/30/-4/cephalic. No lesions seen on careful exam under bright light. Discussed plan of care with patient. Low dose Pitocin cervical ripening tonight. Continuous EFM. Valtrex suppression of HSV.
[2019-10-09 21:15] LABS: Alanine Aminotransferase 16 units/L (7-56); Albumin 3.4 g/dL (3.9-5); BUN/Creatinine Ratio 10; Blood Urea Nitrogen 6 mg/dL (7-17); Calcium 8.5 mg/dL (8.4-10.2); Hemolysis Index 4
[2019-10-10] MEDS: LACTATED RINGERS 1,000 ML IV SCH ×3 (00:56→16:28)
[2019-10-10] MEDS: AMPICILLIN/NS 1 GM/50 ML 1 GM/50 ML BAG IV SCH ×4 (06:00→21:55)
[2019-10-10] MEDS ORDERED: ACETAMINOPHEN 325 MG TAB PO ONE (07:59)
--- NOTE | 2019-10-10 08:07 | Progress Note ---
Assessment and Plan A: at 37 4/7 weeks gestation. Chronic hypertension with superimposed preeclampsia. GBS positive. P: Pitocin induction of labor. GBS prophylaxis. Continuous EFM. Subjective - Subjective Date of service: 10/10/19 Principal diagnosis: at 37 weeks, 4 days gestation; chronic hypertension Interval history: Patient is having labor induced due to chronic hypertension with superimposed preeclampsia. She has received low dose Pitocin overnight for cervical ripening. Patient denies vaginal bleeding or leaking of fluid. Patient reports active movement. Patient reports: movement normal, contractions, other (denies headache, visual disturbances, RUQ pain or N/V), no loss of fluid, no vaginal bleeding Objective - Vital Signs Vital Signs: Vital Signs - 12hr 10/09/19 10/09/19 10/09/19 20:09 20:11 20:14 Temperature Pulse Rate 83 81 81 Blood Pressure 157/93 O2 Sat by Pulse 98 98 Oximetry 10/09/19 10/09/19 10/09/19 20:19 20:24 20:29 Temperature Pulse Rate 85 79 81 Blood Pressure O2 Sat by Pulse 97 97 100 Oximetry 10/09/19 10/09/19 10/09/19 20:34 20:39 20:40 Temperature Pulse Rate 84 79 79 Blood Pressure 143/92 O2 Sat by Pulse 97 97 Oximetry 10/09/19 10/09/19 10/09/19 20:44 20:49 20:54 Temperature Pulse Rate 82 84 84 Blood Pressure O2 Sat by Pulse 97 97 97 Oximetry 10/09/19 10/09/19 10/09/19 20:59 21:04 21:09 Temperature Pulse Rate 83 78 74 Blood Pressure O2 Sat by Pulse 97 98 99 Oximetry 10/09/19 10/09/19 10/09/19 21:10 21:14 21:19 Temperature Pulse Rate 77 77 81 Blood Pressure 126/71 O2 Sat by Pulse 100 98 Oximetry 10/09/19 10/09/19 10/09/19 21:24 21:29 21:34 Temperature Pulse Rate 81 81 84 Blood Pressure O2 Sat by Pulse 99 99 99 Oximetry 10/09/19 10/09/19 10/09/19 21:39 21:40 21:44 Temperature Pulse Rate 76 78 80 Blood Pressure 130/78 O2 Sat by Pulse 100 100 Oximetry 10/09/19 10/09/19 10/09/19 21:49 21:54 21:59 Temperature Pulse Rate 80 81 74 Blood Pressure O2 Sat by Pulse 99 99 100 Oximetry 10/09/19 10/09/19 10/09/19 22:04 22:09 22:10 Temperature Pulse Rate 95 H 82 79 Blood Pressure 123/73 O2 Sat by Pulse 98 100 Oximetry 10/09/19 10/09/19 10/09/19 22:14 22:20 22:21 Temperature Pulse Rate 92 H 70 Blood Pressure O2 Sat by Pulse 98 78 L 77 L Oximetry 10/09/19 10/09/19 10/09/19 22:25 22:30 22:35 Temperature Pulse Rate 89 94 H 93 H Blood Pressure O2 Sat by Pulse 100 99 100 Oximetry 10/09/19 10/09/19 10/09/19 22:40 22:45 22:50 Temperature Pulse Rate 90 97 H 97 H Blood Pressure O2 Sat by Pulse 99 99 99 Oximetry 10/09/19 10/09/19 10/09/19 22:55 23:00 23:05 Temperature Pulse Rate 100 H 98 H 105 H Blood Pressure O2 Sat by Pulse 99 98 99 Oximetry 10/09/19 10/09/19 10/09/19 23:10 23:15 23:20 Temperature Pulse Rate 105 H 98 H 100 H Blood Pressure O2 Sat by Pulse 96 99 99 Oximetry 10/09/19 10/09/19 10/09/19 23:25 23:30 23:35 Temperature Pulse Rate 99 H 101 H 99 H Blood Pressure 131/70 O2 Sat by Pulse 100 100 99 Oximetry 10/09/19 10/09/19 10/09/19 23:40 23:49 23:54 Temperature Pulse Rate 100 H 99 H 100 H Blood Pressure 129/70 O2 Sat by Pulse 99 99 Oximetry 10/09/19 10/10/19 10/10/19 23:59 00:04 00:09 Temperature Pulse Rate 110 H 99 H 101 H Blood Pressure O2 Sat by Pulse 97 98 98 Oximetry 10/10/19 10/10/19 10/10/19 00:10 00:14 00:19 Temperature Pulse Rate 100 H 101 H 95 H Blood Pressure 137/87 O2 Sat by Pulse 98 99 Oximetry 10/10/19 10/10/19 10/10/19 00:24 00:29 00:34 Temperature Pulse Rate 100 H 96 H 92 H Blood Pressure O2 Sat by Pulse 98 97 99 Oximetry 10/10/19 10/10/19 10/10/19 00:39 00:40 00:51 Temperature Pulse Rate 96 H 91 H 66 Blood Pressure 136/95 O2 Sat by Pulse 98 97 Oximetry 10/10/19 10/10/19 10/10/19 00:56 01:01 01:06 Temperature Pulse Rate 92 H 94 H 96 H Blood Pressure O2 Sat by Pulse 98 98 98 Oximetry 10/10/19 10/10/19 10/10/19 01:10 01:11 01:16 Temperature Pulse Rate 91 H 89 90 Blood Pressure 140/87 O2 Sat by Pulse 99 98 Oximetry 10/10/19 10/10/19 10/10/19 01:21 01:26 01:31 Temperature Pulse Rate 94 H 88 81 Blood Pressure O2 Sat by Pulse 98 98 98 Oximetry 10/10/19 10/10/19 10/10/19 01:35 01:36 01:41 Temperature 98.1 F Pulse Rate 81 79 Blood Pressure 142/93 O2 Sat by Pulse 97 97 Oximetry 10/10/19 10/10/19 10/10/19 01:46 01:51 01:56 Temperature Pulse Rate 91 H 85 84 Blood Pressure O2 Sat by Pulse 98 98 98 Oximetry 10/10/19 10/10/19 10/10/19 02:01 02:06 02:10 Temperature Pulse Rate 87 85 81 Blood Pressure 126/75 O2 Sat by Pulse 99 99 Oximetry 10/10/19 10/10/19 10/10/19 02:11 02:16 02:21 Temperature Pulse Rate 85 80 74 Blood Pressure O2 Sat by Pulse 99 99 97 Oximetry 10/10/19 10/10/19 10/10/19 02:26 02:31 02:36 Temperature Pulse Rate 73 85 72 Blood Pressure O2 Sat by Pulse 98 97 98 Oximetry 10/10/19 10/10/19 10/10/19 02:40 02:41 02:46 Temperature Pulse Rate 76 79 81 Blood Pressure 131/84 O2 Sat by Pulse 99 100 Oximetry 10/10/19 10/10/19 10/10/19 02:51 02:56 03:01 Temperature Pulse Rate 92 H 78 78 Blood Pressure O2 Sat by Pulse 100 98 99 Oximetry 10/10/19 10/10/19 10/10/19 03:06 03:11 03:23 Temperature Pulse Rate 85 70 Blood Pressure 142/89 O2 Sat by Pulse 100 100 98 Oximetry 10/10/19 10/10/19 10/10/19 03:28 03:33 03:38 Temperature Pulse Rate 79 77 80 Blood Pressure O2 Sat by Pulse 98 99 99 Oximetry 10/10/19 10/10/19 10/10/19 03:40 03:43 03:48 Temperature Pulse Rate 68 87 78 Blood Pressure 141/95 O2 Sat by Pulse 98 100 Oximetry 10/10/19 10/10/19 10/10/19 03:53 03:58 04:03 Temperature Pulse Rate 78 73 72 Blood Pressure O2 Sat by Pulse 98 98 98 Oximetry 10/10/19 10/10/19 10/10/19 04:08 04:10 04:13 Temperature Pulse Rate 74 74 76 Blood Pressure 140/100 O2 Sat by Pulse 99 98 Oximetry 10/10/19 10/10/19 10/10/19 04:18 04:23 04:28 Temperature Pulse Rate 83 85 74 Blood Pressure O2 Sat by Pulse 98 99 98 Oximetry 10/10/19 10/10/19 10/10/19 04:33 04:38 04:40 Temperature Pulse Rate 72 84 77 Blood Pressure 140/88 O2 Sat by Pulse 98 99 Oximetry 10/10/19 10/10/19 10/10/19 04:43 04:48 04:53 Temperature Pulse Rate 73 76 76 Blood Pressure O2 Sat by Pulse 97 97 98 Oximetry 10/10/19 10/10/19 10/10/19 04:58 05:03 05:08 Temperature Pulse Rate 96 H 75 79 Blood Pressure O2 Sat by Pulse 99 97 97 Oximetry 10/10/19 10/10/19 10/10/19 05:10 05:13 05:18 Temperature Pulse Rate 76 77 76 Blood Pressure 136/81 O2 Sat by Pulse 97 97 Oximetry 10/10/19 10/10/19 10/10/19 05:23 05:28 05:33 Temperature Pulse Rate 75 77 78 Blood Pressure O2 Sat by Pulse 97 97 97 Oximetry 10/10/19 10/10/19 10/10/19 05:38 05:40 05:43 Temperature Pulse Rate 66 69 72 Blood Pressure 137/80 O2 Sat by Pulse 99 97 Oximetry 0410/10/19 10/10/19 05:48 05:53 05:58 Temperature Pulse Rate 84 92 H 79 Blood Pressure O2 Sat by Pulse 97 99 99 Oximetry 10/10/19 10/10/19 10/10/19 06:03 06:08 06:10 Temperature Pulse Rate 79 78 88 Blood Pressure 137/97 O2 Sat by Pulse 97 98 Oximetry 10/10/19 10/10/19 10/10/19 06:13 06:18 06:23 Temperature Pulse Rate 82 85 70 Blood Pressure O2 Sat by Pulse 97 97 97 Oximetry 10/10/19 10/10/19 10/10/19 06:28 06:33 06:35 Temperature 98.6 F Pulse Rate 85 77 Blood Pressure O2 Sat by Pulse 99 99 Oximetry 10/10/19 10/10/19 10/10/19 06:38 06:40 06:43 Temperature Pulse Rate 79 75 90 Blood Pressure 134/86 O2 Sat by Pulse 99 99 Oximetry 10/10/19 10/10/19 10/10/19 06:48 06:53 06:58 Temperature Pulse Rate 79 75 78 Blood Pressure O2 Sat by Pulse 96 99 98 Oximetry 10/10/19 10/10/19 10/10/19 07:02 07:03 07:08 Temperature Pulse Rate 78 79 80 Blood Pressure O2 Sat by Pulse 93 98 100 Oximetry 10/10/19 10/10/19 10/10/19 07:10 07:13 07:18 Temperature Pulse Rate 75 78 74 Blood Pressure 154/99 O2 Sat by Pulse 98 96 Oximetry 10/10/19 10/10/19 10/10/19 07:23 07:28 07:33 Temperature Pulse Rate 72 83 82 Blood Pressure O2 Sat by Pulse 98 99 99 Oximetry 10/10/19 10/10/19 10/10/19 07:38 07:41 07:43 Temperature Pulse Rate 76 92 H 76 Blood Pressure 152/98 O2 Sat by Pulse 99 100 Oximetry 10/10/19 10/10/19 10/10/19 07:48 07:53 07:58 Temperature Pulse Rate 80 79 79 Blood Pressure O2 Sat by Pulse 98 99 100 Oximetry - Exam Abdomen: Present: normal appearance, soft. Absent: distention, tenderness, guarding, rigidity Uterus: Present: normal, fundal height above umbilicus. Absent: tenderness FHR: category 1 Uterine Contraction Monitor Mode: External Cervical Dilatation: 4 Cervical Effacement Percentage: 70 station: -3 Uterine Contraction Pattern: Irregular Uterine Contraction Intensity: Mild Extremities: normal Deep Tendon Reflex Grade: Normal +2 - Labs Labs: Abnormal Labs 10/08/19 10/08/19 10/09/19 21:30 21:30 00:18 MCH 27 L 27 L RDW 15.5 H Seg Neutrophils % 70.7 H Sodium Potassium Carbon Dioxide BUN Creatinine Glucose Lactate Dehydrogenase 277 H Total Protein Albumin 10/09/19 10/09/19 00:18 20:25 MCH RDW Seg Neutrophils % Sodium 133 L 136 L Potassium 3.2 L Carbon Dioxide 20 L BUN 6 L Creatinine 0.5 L 0.6 L Glucose 150 H Lactate Dehydrogenase Total Protein 6.1 L Albumin 3.6 L 3.4 L Laboratory Results - last 24 hr 10/08/19 10/08/19 10/09/19 14:20 21:30 06:30 Plt Count Sodium Potassium Chloride Carbon Dioxide Anion Gap BUN Creatinine Estimated GFR BUN/Creatinine Ratio Glucose Calcium Total Bilirubin AST ALT Alkaline Phosphatase Total Protein Albumin Albumin/Globulin Ratio Procalcitonin < 0.05 Urine Opiates Screen Presumptive negative Urine Methadone Screen Presumptive negative Ur Barbiturates Screen Presumptive negative Ur Phencyclidine Scrn Presumptive negative Ur Amphetamines Screen Presumptive negative U Benzodiazepines Scrn Presumptive negative Urine Cocaine Screen Presumptive negative U Marijuana (THC) Screen Presumptive positive Drugs of Abuse Note Disclamer Syphilis IgG Antibody Hep Bs Antigen Non-reactive 10/09/19 10/09/19 10/09/19 06:30 20:25 20:25 Plt Count 157 Sodium 136 L Potassium 3.6 Chloride 103.3 Carbon Dioxide 22 Anion Gap 14 BUN 6 L Creatinine 0.6 L Estimated GFR > 60 BUN/Creatinine Ratio 10 Glucose 89 Calcium 8.5 Total Bilirubin 0.30 AST 18 ALT 16 Alkaline Phosphatase 66 Total Protein 6.1 L Albumin 3.4 L Albumin/Globulin Ratio 1.3 Procalcitonin Urine Opiates Screen Urine Methadone Screen Ur Barbiturates Screen Ur Phencyclidine Scrn Ur Amphetamines Screen U Benzodiazepines Scrn Urine Cocaine Screen U Marijuana (THC) Screen Drugs of Abuse Note Syphilis IgG Antibody Non-reactive Hep Bs Antigen
[2019-10-10] MEDS: valACYclovir 500 MG TAB PO SCH ×3 (09:40→21:57)
[2019-10-10] MEDS: FERROUS SULFATE 325 MG TAB PO SCH ×2 (09:59→21:56)
[2019-10-10] MEDS ORDERED: MAGNESIUM SULFATE 4 GM/100 ML BAG IV ONE (12:30)
[2019-10-10] MEDS: MAGNESIUM SULFATE 40GM/1000ML 40 GM/1,000 ML BAG IV SCH (12:53)
[2019-10-10] MEDS: OXYTOCIN DRIP 30 UNITS/500 ML BAG IV SCH (22:19)
--- NOTE | 2019-10-11 01:47 | Event Note ---
Date: 10/11/19 Patient is having labor induced due to chronic hypertension with superimposed preeclampsia. Patient is receiving Pitocin for induction of labor. Patient is also receiving magnesium sulfate for seizure prevention. She is receiving Labetalol for control of BP. Hydralazine also ordered prn for BP control. Patient denies pain. She now states she has a mild headache. Denies visual disturbance, nausea or vomiting. No swelling noted. Tylenol ordered for headache. SVE 5/70/-3. Category 1 heart rate tracing. Consulted with Dr. Spencer re: this patient and slow progress of labor/induction, increase in BP and headache, and interventions taken. No new orders received.
[2019-10-11] MEDS: hydrALAZINE 20 MG/1 ML INJ IV PRN ×2 (01:51→11:40)
[2019-10-11] MEDS ORDERED: ACETAMINOPHEN 325 MG TAB PO ONE (01:54)
[2019-10-11] MEDS: OXYTOCIN DRIP 30 UNITS/500 ML BAG IV SCH (01:55)
[2019-10-11 03:21] LABS: Alanine Aminotransferase 13 units/L (7-56)
[2019-10-11] MEDS: LACTATED RINGERS 1,000 ML IV SCH (10:31)
[2019-10-11] MEDS: FERROUS SULFATE 325 MG TAB PO SCH ×2 (10:32→10:35)
[2019-10-11] MEDS: valACYclovir 500 MG TAB PO SCH ×2 (10:33→10:35)
--- NOTE | 2019-10-11 11:45 | Event Note ---
Date: 10/11/19 AROM at 10:50 with clear fluid. AROM done to augment labor.
[2019-10-11] MEDS ORDERED: DEXMEDETOMIDINE 200 MCG/2 ML VIAL IV ONE (12:15)
[2019-10-11] MEDS ORDERED: NALOXONE 2 MG/2 ML INJ IV PRN (12:56)
[2019-10-11] MEDS ORDERED: ePHEDrine SULFATE 50 MG/1 ML INJ IV PRN (12:56)
--- NOTE | 2019-10-11 13:04 | Anesthesia Consultation ---
Anesthesia Consult and Med Hx Date of service: 10/11/19 - Airway Anesthetic Teeth Evaluation: Poor ROM Head & Neck: Adequate Mental/Hyoid Distance: Adequate Mallampati Class: Class III Intubation Access Assessment: Probably Good - Pulmonary Exam CTA: Yes - Cardiac Exam Cardiac Exam: RRR - Pre-Operative Health Status ASA Pre-Surgery Classification: ASA3 Proposed Anesthetic Plan: Epidural - Pulmonary Hx Smoking: No Hx Asthma: No Hx Respiratory Symptoms: No SOB: No COPD: No Home Oxygen Therapy: No Hx Pneumonia: No Hx Sleep Apnea: No - Cardiovascular System Hx Hypertension: Yes Hx Coronary Artery Disease: No Hx Heart Attack/AMI: No Hx Angina: No Hx Percutaneous Transluminal Coronary Angioplasty (PTCA): No Hx Cardia Arrhythmia: No Hx Pacemaker: No Hx Internal Defibrillator: No Hx Valvular Heart Disease: No Hx Heart Murmur: No Hx Peripheral Vascular Disease: No - Central Nervous System Hx Neuromuscular Disorder: No Hx Seizures: No CVA: No Hx Back Pain: Yes Hx Psychiatric Problems: No - Gastrointestinal Hx Ulcer: No Hx Gastroesophageal Reflux Disease: Yes - Endocrine Hx Renal Disease: No Hx End Stage Renal Disease: No Hx Cirrhosis: No Hx Liver Disease: No (hep A and B) Hx Insulin Dependent Diabetes: No Hx Non-Insulin Dependent Diabetes: No Hx Thyroid Disease: No Hx Hypothyroidism: No Hx Hyperthyroidism: No - Hematic Hx Anemia: Yes Hx Sickle Cell Disease: No - Other Systems Hx Alcohol Use: No Hx Substance Use: No Hx Cancer: No Hx Obesity: Yes
[2019-10-11] MEDS: AMPICILLIN/NS 1 GM/50 ML 1 GM/50 ML BAG IV SCH ×2 (13:18→19:52)
[2019-10-11] MEDS: fentaNYL-BUPIV 2 MCG/ML-0.125% 200 MCG/100 ML BAG EPIDURAL SCH ×2 (13:19→21:27)
--- NOTE | 2019-10-11 13:22 | Progress Note ---
Labor Epidural - Labor Epidural Start Time: 12:15 Stop Time: 12:45 Performed by:: MELYSSA KENYON Procedure: Combined Spinal Epidural Patient is requesting combined spinal epidural for labor and pain. H&P, labs were reviewed. All questions and concerns were answered. Informed consent was obtained. Timeout performed. Patient in sitting position on side of bed. Sterile prep and drape was performed. [3] mL 1% lidocaine skin wheal at L [3]-L [4]. 18-gauge Touhy epidural needle advanced to [id number] using air technique, [8]. 27-gauge spinal needle advanced [clear positive free-flowing] CSF. spinal dose of [Precedex 10 mcg]. Epidural catheter advanced to [12] cm. [Negative] Aspiration, [negative] test dose. Sterile dressing applied. Patient tolerated procedure well.
--- NOTE | 2019-10-11 16:08 | Event Note ---
Date: 10/11/19 E 680/-1.
[2019-10-11] MEDS ORDERED: ONDANSETRON 4 MG/2 ML INJ ONE (18:25)
--- NOTE | 2019-10-11 18:26 | Event Note ---
Date: 10/11/19 No cervical change. FHR baseline 105-110 with moderate variability and accelerations. Called and spoke with Dr. Spencer re: patient's cervical exam, FHR tracing, caput, and interventions taken. Dr. Spencer states to check patient's cervix again at 8:00 PM. No other orders received. Patient positioned in left lateral position and peanut ball placed between patient's legs. Fetus has been in OP position and patient has been repositioned frequently during induction of labor. Discussed plan of care with patient and she states she is in agreement.
--- NOTE | 2019-10-11 20:18 | Event Note ---
Date: 10/11/19 T 97.4. SVE 01/02/90/-1/caput present. Category 1 heart rate tracing. Regular contractions. Uterus palpates soft between contractions. Dr. Spencer present in hospital; informed him of patient's cervical exam and caput.
[2019-10-11] MEDS ORDERED: ceFAZolin/Water 2 GM/20 ML 2 GM/20 ML SYRINGE IV ONE (21:54)
[2019-10-11] MEDS ORDERED: FAMOTIDINE 20 MG/2 ML INJ IV ONE ×2 (21:54→21:58)
[2019-10-11] MEDS ORDERED: BICITRA ORAL LIQD 30ML ONE (21:54)
[2019-10-11] MEDS ORDERED: METOCLOPRAMIDE 10 MG/2 ML INJ ONE (21:54)
[2019-10-11] MEDS ORDERED: METOCLOPRAMIDE 10 MG/2 ML INJ IV ONE (21:58)
[2019-10-11] MEDS ORDERED: BICITRA ORAL LIQD 30ML PO ONE (21:58)
[2019-10-11] MEDS ORDERED: LACTATED RINGERS 1,000 ML IV SCH (22:00)
[2019-10-11] MEDS ORDERED: OXYTOCIN 20 UNIT/1000ML DRIP 20 UNITS/1,000 ML BAG IV SCH (22:00)
[2019-10-11] MEDS ORDERED: ceFAZolin/Water 2 GM/20 ML 2 GM/20 ML SYRINGE IV NR (22:00)
[2019-10-11] MEDS ORDERED: ONDANSETRON 4 MG/2 ML INJ IV PRN (22:06)
--- NOTE | 2019-10-11 22:06 | Anesthesia Day of Surgery ---
Anesthesia Day of Surgery - Day of Surgery Patient Examined: Yes Patient H&P Reviewed: Yes Patient is NPO: Yes Beta Blockers: No Cardiac Clearance: No Pulmonary Clearance: No Carlos's Test: N/A
--- NOTE | 2019-10-11 22:15 | Event Note ---
Date: 10/11/19 I was called to see the patient after it has been deemed that this patient has had failure to progress. Patient has been at 7 cm for several hours with no further progression. In addition the dredge mate is noting some cervical swelling as well. Patient is on Pitocin with a good contraction pattern. As a result due to arrest of dilatation, patient was consented for a primary low transverse . Patient fully consented including the risks benefits and alternatives. Patient understands and agrees to proceed with the surgery.
--- NOTE | 2019-10-11 22:29 | Procedure Note ---
OB Delivery Note - Delivery Date of Delivery: 10/11/19 Surgeon: HAIDER MYLES Estimated blood loss: other (800 cc) - Section Preop diagnosis: arrest of dilation Postop diagnosis: same section procedure: primary low transverse Disposition: PACU Complications: none Narrative: Indication: 29-year-old at 37 weeks and 5 days is for primary low transverse for failure to dilate past 7 cm. Patient was induced for suspected preeclampsia. Findings: Normal uterus, tubes and ovaries. Clear fluid. No nuchal cord. Fetus was occiput posterior. Procedure: Patient taken to the operating room and prepped and draped in the usual fashion. Pfannenstiel skin incision was made and carried down to the underlying fascia. Fascia was incised and the incision was extended bilaterally. Rectus fascia dissected off the rectus muscle both superiorly and inferiorly. Peritoneum identified tented up and entered. Peritoneal incision extended superiorly and inferiorly with good visualization of the bladder. Bladder blade was placed. Uterine incision was made and the incision was extended bilaterally. The baby was delivered from in the typical vertex fashion. Baby bulb suctioned at the incision site and again after delivery. Cord was delayed clamped and cut and handed off to waiting team. The placenta was delivered spontaneously. The uterus was exteriorized and cleared of all clots and debris. Uterine incision closed with 0 Vicryl in a running locked fashion followed by a second imbricating layer of 0 Vicryl. Good hemostasis was noted. Her urine was clear. Uterus tubes and ovaries return to the abdominal cavity. Gutters were cleared of all clots and debris and the pelvis was well irrigated. Good hemostasis noted. Interceed placed over the uterine incision and over the lower uterine segment in the midline. Attention was turned to the rectus fascia which was reapproximated with 0 Vicryl in a running fashion. Subcutaneous tissues was irrigated and reapproximated with 2-0 Vicryl in a running fashion. Skin was closed with 4-0 Vicryl in a subcuticular fashion followed by Dermabond. The procedure was concluded at this point and the patient tolerated the procedure well. All instrument and lap counts were correct. - A at 1 minute: 8 at 5 minutes: 9 Infant Gender: Male
[2019-10-11] MEDS ORDERED: LIDOCAINE (2%) 20 MG/1 ML VIAL 20 ML MDV INFILTRATI ONE (22:35)
[2019-10-11] MEDS ORDERED: LIDOCAINE MPF (2%) 20 MG/1 ML VIAL 5 ML ONE ×2 (22:38→23:08)
[2019-10-11] MEDS ORDERED: ceFAZolin/STERILE WATER 2 GM/20 ML SYRINGE IV ONE (23:04)
[2019-10-11] MEDS ORDERED: SODIUM CHLORIDE 0.9% IRR 1,500 ML BOTTLE IR ONE (23:12)
[2019-10-11] MEDS ORDERED: WATER FOR IRRIG STERILE 1,500 ML BOTTLE IR ONE (23:12)
[2019-10-11] MEDS ORDERED: KETOROLAC 30 MG/1 ML INJ ONE (23:24)
[2019-10-11] MEDS ORDERED: OXYTOCIN 10 UNIT/1 ML INJ ONE (23:35)
[2019-10-11] MEDS ORDERED: BUPIVACAINE/PF (0.5%) 5 MG/1 ML 30 ML VIAL INFILTRATI ONE (23:52)
[2019-10-12] MEDS ORDERED: NALOXONE 0.4 MG/1 ML INJ IV PRN (00:06)
[2019-10-12] MEDS ORDERED: oxyCODONE /ACETAMINOPHEN 5-325MG TAB PO PRN (00:06)
[2019-10-12] MEDS ORDERED: WITCH HAZEL/ GLYCERIN PAD TP PRN (00:06)
[2019-10-12] MEDS ORDERED: LANOLIN/ZINC/DIMETHICONE (LANSINOH) 7 GM TP PRN (00:06)
[2019-10-12] MEDS ORDERED: SIMETHICONE 80 MG CHEW TAB PO PRN (00:07)
[2019-10-12] MEDS ORDERED: ONDANSETRON 4 MG/2 ML INJ IV PRN (00:07)
[2019-10-12] MEDS ORDERED: SENNOSIDES 8.6 MG TAB PO PRN (00:07)
[2019-10-12] MEDS ORDERED: ONDANSETRON 4 MG/2 ML INJ ONE (00:10)
--- NOTE | 2019-10-12 00:20 | Post Anesthesia Evaluation ---
- Post Anesthesia Evaluation Patient Participated: Yes Airway Patent: Yes Stable Respiratory Function: Yes Nausea/Vomiting: No Temp > 96.8F: Yes Pain Manageable: Yes Adequeate Hydration: Yes Anesthesia Complications: No Block Receding Appropriately: Yes Patient on Ventilator: No
[2019-10-12] MEDS ORDERED: OXYTOCIN 20 UNIT/1000ML DRIP 20 UNITS/1,000 ML BAG IV SCH (01:00)
[2019-10-12] MEDS: MAGNESIUM SULFATE 40GM/1000ML 40 GM/1,000 ML BAG IV SCH (02:00)
[2019-10-12] MEDS: HYDROmorphone 1 MG/1 ML INJ IV PRN ×2 (02:46→03:04)
[2019-10-12] MEDS: FERROUS SULFATE 325 MG TAB PO SCH ×2 (02:50→09:50)
[2019-10-12] MEDS: valACYclovir 500 MG TAB PO SCH ×3 (02:50→21:25)
[2019-10-12] MEDS: KETOROLAC 30 MG/1 ML INJ IV PRN ×3 (05:44→21:34)
[2019-10-12] MEDS: hydrALAZINE 20 MG/1 ML INJ IV PRN ×2 (06:03→07:56)
--- NOTE | 2019-10-12 09:59 | Progress Note ---
Assessment and Plan - Patient Problems (1) S/P primary low transverse Current Visit: Yes Status: Acute Plan to address problem: POD 1 - uncontrolled pain Continue routine postop orders Abdominal binder ordered and applied Discontinue magnesium sulfate, treviño catheter and sequential compression device per protocol Ambulation encouraged, as tolerated Anticipate discharge in 24 to 48 hours (2) Chronic hypertension with superimposed pre-eclampsia Current Visit: Yes Status: Acute Plan to address problem: Continue magnesium sulfate therapy Continue serial Mg level, strict I&O, DTR, Clonus & BP checks per protocol Patient was initially on Procardia XL 60mg PO qd during her and on admission. Last given on 10/10/19. She was later started on Labetalol 100mg PO BID. Due to her BPs still elevated requiring Hydralazine IV, Labetalol increased to 200mg BID. If still uncontrolled will discontinue Labetalol and restart patient on Procardia 60mg PO qd. (3) Uncontrolled pain Current Visit: Yes Status: Acute Plan to address problem: Percocet increased from 1 to 2 tablets PO q6h PRN Subjective - Subjective Date of service: 10/12/19 Principal diagnosis: POD #1; s/p Primary LTCS; Chronic HTN w/Superimposed Pre- eclampsia Interval history: see QUOTE CLERK - H&P, Obstetrical Progress Notes, Event Notes and OB Delivery Procedure Note Patient reports: appetite normal, dizzy ambulation, pain well controlled, pain poorly controlled (Treviño catheter, & bilateral SCD in place, incentive spirometer at bedside; denies headache, visual disturbances, RUQ pain, SOB or altered mental status), no flatus, no bowel movement, no nauseated [place]: doing well, in NICU Objective - Vital Signs Latest vital signs: Vital Signs Temp Pulse Resp BP BP Pulse Ox 10/12/19 09:51 90 152/89 99 10/12/19 09:46 94 H 98 10/12/19 09:41 92 H 98 10/12/19 09:39 92 H 152/89 10/12/19 09:36 87 100 10/12/19 09:31 95 H 99 10/12/19 09:26 91 H 99 10/12/19 09:21 89 98 10/12/19 09:19 90 154/88 10/12/19 09:16 88 99 10/12/19 09:11 89 98 10/12/19 09:06 89 99 10/12/19 09:01 87 100 10/12/19 08:58 86 158/90 10/12/19 08:56 89 99 10/12/19 08:53 90 152/87 10/12/19 08:51 98 H 100 10/12/19 08:46 92 H 99 10/12/19 08:41 89 100 10/12/19 08:39 90 161/93 10/12/19 08:36 96 H 100 10/12/19 08:31 94 H 99 10/12/19 08:26 100 H 99 10/12/19 08:21 98 H 98 10/12/19 08:19 96 H 163/102 10/12/19 08:16 93 H 100 10/12/19 08:11 96 H 100 10/12/19 08:06 89 100 10/12/19 08:01 88 100 10/12/19 07:56 86 161/95 100 10/12/19 07:51 84 100 10/12/19 07:50 18 10/12/19 07:48 78 161/95 10/12/19 07:46 88 99 10/12/19 07:41 75 100 10/12/19 07:36 77 100 10/12/19 07:34 78 167/94 10/12/19 07:31 78 100 10/12/19 07:26 92 H 100 10/12/19 07:21 82 98 10/12/19 07:16 80 100 10/12/19 07:11 83 100 10/12/19 07:06 90 100 10/12/19 07:04 88 146/99 10/12/19 07:01 82 98 10/12/19 06:56 84 98 10/12/19 06:51 84 97 10/12/19 06:46 80 98 10/12/19 06:41 84 97 10/12/19 06:36 84 100 10/12/19 06:31 85 99 10/12/19 06:30 85 154/88 10/12/19 06:26 82 100 10/12/19 06:25 81 154/92 10/12/19 06:21 79 100 10/12/19 06:20 82 167/102 10/12/19 06:16 79 100 10/12/19 06:15 78 152/104 10/12/19 06:11 77 100 10/12/19 06:10 74 162/102 10/12/19 06:06 74 100 10/12/19 06:05 77 159/103 10/12/19 06:03 78 167/100 10/12/19 06:01 75 167/100 100 10/12/19 06:00 18 100 10/12/19 05:57 70 172/101 10/12/19 05:56 72 100 10/12/19 05:51 83 100 10/12/19 05:46 76 100 10/12/19 05:41 74 98 10/12/19 05:36 84 98 10/12/19 05:31 77 97 10/12/19 05:26 79 98 10/12/19 05:21 78 97 10/12/19 05:16 76 98 10/12/19 05:11 79 97 10/12/19 05:06 82 98 10/12/19 05:01 78 97 10/12/19 05:00 16 98 10/12/19 04:56 81 98 10/12/19 04:54 79 155/90 10/12/19 04:51 79 97 10/12/19 04:46 80 98 10/12/19 04:45 98.3 F 10/12/19 04:41 83 98 10/12/19 04:39 81 146/86 10/12/19 04:36 80 96 10/12/19 04:31 81 98 10/12/19 04:26 80 99 10/12/19 04:24 83 159/92 10/12/19 04:21 85 98 10/12/19 04:16 79 98 10/12/19 04:11 80 97 10/12/19 04:06 79 97 10/12/19 04:04 80 152/88 10/12/19 04:01 82 96 10/12/19 04:00 20 98 10/12/19 03:56 83 97 10/12/19 03:54 78 156/88 10/12/19 03:51 88 100 10/12/19 03:46 84 98 10/12/19 03:44 87 154/85 10/12/19 03:41 84 97 10/12/19 03:36 86 97 10/12/19 03:34 84 157/85 10/12/19 03:31 85 99 10/12/19 03:26 85 98 10/12/19 03:25 80 149/88 10/12/19 03:21 85 98 10/12/19 03:16 82 97 10/12/19 03:14 83 152/94 10/12/19 03:11 80 97 10/12/19 03:06 82 98 10/12/19 03:03 79 162/101 10/12/19 03:02 79 170/98 10/12/19 03:01 80 98 10/12/19 03:00 18 100 10/12/19 02:56 78 99 10/12/19 02:51 79 99 10/12/19 02:46 81 100 10/12/19 02:45 81 10/12/19 02:41 77 100 10/12/19 02:36 76 100 10/12/19 02:31 74 100 10/12/19 02:28 72 154/93 10/12/19 02:26 75 100 10/12/19 02:21 75 100 10/12/19 02:00 18 100 10/12/19 01:57 77 151/95 10/12/19 01:30 98.1 F 10/12/19 01:15 98.4 F 80 12 126/52 100 10/12/19 01:00 80 14 119/73 99 10/12/19 00:45 81 14 123/72 97 10/12/19 00:30 81 15 132/72 98 10/12/19 00:25 81 17 129/72 98 10/12/19 00:20 82 16 130/73 97 10/12/19 00:15 98.0 F 83 15 131/78 98 10/11/19 22:55 57 L 88 10/11/19 22:53 35 L 74 L 10/11/19 22:51 88 136/72 10/11/19 22:50 89 98 10/11/19 22:46 89 132/71 10/11/19 22:44 92 H 99 10/11/19 22:41 88 143/71 10/11/19 22:40 88 98 10/11/19 22:36 88 139/72 10/11/19 22:34 90 97 10/11/19 22:31 88 141/74 04/12/20 22:30 89 100 10/11/19 22:26 86 138/76 10/11/19 22:25 86 99 10/11/19 22:21 87 139/78 10/11/19 22:19 88 100 10/11/19 22:18 87 136/80 10/11/19 22:14 87 100 10/11/19 22:11 138/81 10/11/19 22:10 97 H 100 10/11/19 22:08 91 H 132/78 10/11/19 22:05 96 H 100 10/11/19 22:03 88 133/83 10/11/19 21:59 86 100 10/11/19 21:57 87 130/98 10/11/19 21:55 84 100 10/11/19 21:53 83 140/81 10/11/19 21:50 86 100 10/11/19 21:47 80 140/85 10/11/19 21:44 76 100 10/11/19 21:42 76 138/85 10/11/19 21:40 78 100 10/11/19 21:38 76 137/85 10/11/19 21:35 80 100 10/11/19 21:34 91 H 80 L 10/11/19 21:32 83 137/83 10/11/19 21:30 81 100 10/11/19 21:26 77 137/76 10/11/19 21:25 90 100 10/11/19 21:22 88 133/66 10/11/19 21:20 83 99 10/11/19 21:18 86 133/76 10/11/19 21:17 95 H 89 10/11/19 21:15 82 100 10/11/19 21:12 81 125/69 10/11/19 21:10 83 100 10/11/19 21:07 77 125/72 10/11/19 21:04 79 100 10/11/19 21:02 80 121/71 10/11/19 21:00 78 18 99 10/11/19 20:59 86 91 10/11/19 20:57 83 125/72 10/11/19 20:54 81 99 10/11/19 20:52 82 126/77 10/11/19 20:50 78 100 10/11/19 20:47 79 118/69 10/11/19 20:45 76 100 10/11/19 20:42 81 119/68 10/11/19 20:39 75 100 10/11/19 20:38 80 118/68 10/11/19 20:34 79 100 10/11/19 20:33 79 119/68 10/11/19 20:29 78 100 10/11/19 20:26 78 118/65 10/11/19 20:25 77 100 10/11/19 20:23 77 119/68 10/11/19 20:20 77 100 10/11/19 20:16 76 118/61 10/11/19 20:15 77 100 10/11/19 20:14 75 123/63 10/11/19 20:10 88 100 10/11/19 20:09 86 83 L 10/11/19 20:06 75 122/64 10/11/19 20:05 73 100 10/11/19 20:01 72 120/62 10/11/19 20:00 69 18 100 10/11/19 19:59 69 114/62 10/11/19 19:54 68 100 10/11/19 19:53 70 125/73 10/11/19 19:49 71 100 10/11/19 19:48 72 116/84 10/11/19 19:44 73 100 10/11/19 19:42 71 127/65 10/11/19 19:40 79 100 10/11/19 19:38 73 132/74 10/11/19 19:34 68 100 10/11/19 19:33 71 112/74 10/11/19 19:29 70 100 10/11/19 19:26 73 108/65 10/11/19 19:24 70 100 10/11/19 19:23 70 109/65 10/11/19 19:22 71 73 L 10/11/19 19:20 69 100 10/11/19 19:15 68 100 10/11/19 19:13 66 117/62 78 L 10/11/19 19:09 73 90 10/11/19 19:08 70 87 10/11/19 19:07 97.7 F 78 18 129/81 129/81 100 10/11/19 19:04 72 100 10/11/19 19:02 68 120/73 10/11/19 19:00 18 100 10/11/19 18:59 63 154/76 100 10/11/19 18:58 68 91 10/11/19 18:54 66 100 10/11/19 18:52 68 120/77 10/11/19 18:49 71 100 10/11/19 18:46 97.4 F L 65 18 121/74 10/11/19 18:44 72 100 10/11/19 18:41 66 122/75 10/11/19 18:40 64 100 10/11/19 18:38 64 121/74 10/11/19 18:34 66 100 10/11/19 18:33 76 94 10/11/19 18:31 67 114/68 10/11/19 18:29 70 100 10/11/19 18:28 68 114/69 10/11/19 18:24 74 100 10/11/19 18:22 83 128/59 10/11/19 18:20 77 100 10/11/19 18:15 75 100 10/11/19 18:12 65 120/57 10/11/19 18:11 75 90 10/11/19 18:09 70 100 10/11/19 18:06 63 119/74 10/11/19 18:05 62 100 10/11/19 18:02 63 119/73 10/11/19 17:59 64 100 10/11/19 17:56 62 112/63 10/11/19 17:55 71 100 10/11/19 17:51 75 94 10/11/19 17:49 75 125/80 10/11/19 17:48 82 99 10/11/19 17:45 71 81 L 10/11/19 17:43 69 109/74 100 10/11/19 17:38 75 100 10/11/19 17:37 69 112/64 10/11/19 17:33 70 111/64 100 10/11/19 17:32 76 86 10/11/19 17:28 80 112/65 100 10/11/19 17:26 75 58 L 10/11/19 17:23 73 109/59 100 10/11/19 17:18 66 113/65 100 10/11/19 17:13 78 100 10/11/19 17:12 72 111/74 10/11/19 17:08 67 100 10/11/19 17:07 70 112/77 10/11/19 17:03 69 112/73 100 10/11/19 16:58 69 100 10/11/19 16:56 67 111/72 10/11/19 16:53 68 100 10/11/19 16:52 68 112/72 10/11/19 16:48 70 100 10/11/19 16:47 68 111/68 10/11/19 16:43 69 100 10/11/19 16:42 67 108/58 10/11/19 16:39 70 115/75 10/11/19 16:38 74 100 10/11/19 16:34 70 101/56 10/11/19 16:33 76 100 10/11/19 16:28 69 109/58 100 10/11/19 16:23 67 100 10/11/19 16:22 75 104/59 10/11/19 16:18 67 112/63 100 10/11/19 16:13 71 100 10/11/19 16:12 68 114/66 10/11/19 16:08 68 100 10/11/19 16:07 68 112/62 10/11/19 16:03 76 106/58 100 10/11/19 15:58 71 107/56 100 10/11/19 15:57 77 94 10/11/19 15:53 72 100 10/11/19 15:52 71 102/59 10/11/19 15:48 71 109/59 100 10/11/19 15:44 70 105/57 10/11/19 15:43 71 97 10/11/19 15:38 69 100 10/11/19 15:36 69 101/59 10/11/19 15:33 71 100 10/11/19 15:31 68 88/50 10/11/19 15:28 70 89/51 100 10/11/19 15:23 97.5 F L 73 18 91/52 100 10/11/19 15:19 72 110/57 10/11/19 15:18 71 96 10/11/19 15:13 70 116/66 100 10/11/19 15:08 68 100 10/11/19 15:06 75 103/57 10/11/19 15:03 76 111/65 99 10/11/19 14:58 74 100 10/11/19 14:57 70 112/63 10/11/19 14:53 71 100 10/11/19 14:52 68 113/65 10/11/19 14:48 72 100 10/11/19 14:47 70 108/60 10/11/19 14:43 72 109/63 100 10/11/19 14:39 70 111/62 10/11/19 14:38 75 97 10/11/19 14:33 74 109/59 100 10/11/19 14:28 73 100 10/11/19 14:26 72 109/62 10/11/19 14:23 74 100 10/11/19 14:21 71 109/64 10/11/19 14:18 74 110/66 100 10/11/19 14:13 74 100 10/11/19 14:12 74 105/57 10/11/19 14:08 72 100 10/11/19 14:07 75 106/59 10/11/19 14:03 74 108/59 100 10/11/19 13:58 75 100 10/11/19 13:56 76 104/57 10/11/19 13:53 74 100 10/11/19 13:52 75 103/57 10/11/19 13:48 75 100 10/11/19 13:47 77 106/57 10/11/19 13:43 75 113/57 100 10/11/19 13:38 76 100 10/11/19 13:36 79 104/55 10/11/19 13:33 83 100 10/11/19 13:31 79 112/59 10/11/19 13:28 80 111/53 100 10/11/19 13:23 79 110/56 98 10/11/19 13:18 79 100 10/11/19 13:16 82 98/52 10/11/19 13:13 81 100 10/11/19 13:12 81 95/53 10/11/19 13:09 82 94/53 10/11/19 13:08 83 101/59 100 10/11/19 13:03 80 100 10/11/19 12:58 83 98 10/11/19 12:51 82 100 10/11/19 12:50 83 126/81 10/11/19 12:48 78 141/78 10/11/19 12:46 88 160/79 10/11/19 12:45 90 100 10/11/19 12:44 74 148/80 10/11/19 12:42 83 150/82 10/11/19 12:40 85 147/83 100 10/11/19 12:38 89 155/87 10/11/19 12:36 82 141/86 94 10/11/19 12:35 79 100 10/11/19 12:34 78 143/72 10/11/19 12:32 82 143/81 10/11/19 12:30 91 H 148/80 100 10/11/19 12:28 97 H 156/73 10/11/19 12:26 94 H 156/72 10/11/19 12:25 100 H 100 10/11/19 12:23 93 H 159/80 10/11/19 12:21 106 H 90 10/11/19 12:20 104 H 98 10/11/19 12:18 96 H 194/108 10/11/19 12:16 93 H 191/112 10/11/19 12:15 93 H 100 10/11/19 12:12 97 H 187/79 70 L 10/11/19 12:09 88 100 10/11/19 12:08 93 H 185/92 10/11/19 12:04 99 H 100 10/11/19 11:59 103 H 100 10/11/19 11:54 89 100 10/11/19 11:52 81 159/101 10/11/19 11:49 90 95 10/11/19 11:44 85 100 10/11/19 11:40 80 166/101 10/11/19 11:39 86 97 10/11/19 11:38 75 166/101 10/11/19 11:34 83 99 10/11/19 11:31 81 93 10/11/19 11:29 81 96 10/11/19 11:24 91 H 99 10/11/19 11:22 76 165/100 10/11/19 11:19 84 100 10/11/19 11:14 79 100 10/11/19 11:09 81 97 10/11/19 11:07 80 162/98 10/11/19 11:04 87 100 10/11/19 11:02 85 81 L 10/11/19 10:59 75 100 10/11/19 10:54 97.7 F 78 18 164/97 100 10/11/19 10:53 85 178/105 10/11/19 10:50 82 L 10/11/19 10:49 82 100 10/11/19 10:44 85 100 10/11/19 10:39 80 100 10/11/19 10:37 80 163/94 10/11/19 10:34 76 100 10/11/19 10:29 80 100 10/11/19 10:24 81 96 10/11/19 10:22 76 164/97 10/11/19 10:19 84 100 10/11/19 10:14 82 99 10/11/19 10:09 82 100 10/11/19 10:07 77 153/94 10/11/19 10:04 81 100 10/11/19 09:59 74 100 Intake and Output 10/11/19 10/12/19 10/12/19 23:59 07:59 15:59 Intake Total 15.967 Output Total 350 600 Balance -334.033 -600 Intake: IV 15.967 PITOCin/NS 30 UNIT/500ML 15.967 30 units In 500 ml @ Titrate IV TITR MICHELET Rx#: [id number] Output: Urine 350 600 Indwelling Catheter 350 600 Other: Total, Output Amount 150 100 Estimated Blood Loss 800 - Exam Cardiovascular: Present: Regular rate Lungs: Present: Clear to auscultation Abdomen: Present: normal appearance, soft Vulva: both: normal Uterus: Present: normal, firm, fundal height at umbilicus Extremities: Present: normal Deep Tendon Reflex Grade: Normal +2 Incision: Present: normal, dry, dressed Comments: scant lochia - Labs Labs: Abnormal lab results 10/11/19 10/11/19 10/12/19 Range/Units 13:17 18:13 05:51 Magnesium 5.90 H 6.90 H 6.50 H (1.7-2.3) mg/dL
[2019-10-12] MEDS: oxyCODONE /ACETAMINOPHEN 5-325MG TAB PO PRN (10:29)
[2019-10-12 12:39] LABS: Hemoglobin 9.8 gm/dl (10.1-14.3)
[2019-10-12] MEDS: LACTATED RINGERS 1,000 ML IV SCH (15:55)
[2019-10-13] MEDS: oxyCODONE /ACETAMINOPHEN 5-325MG TAB PO PRN ×2 (00:50→13:31)
[2019-10-13] MEDS: MAGNESIUM SULFATE 40GM/1000ML 40 GM/1,000 ML BAG IV SCH (00:51)
--- NOTE | 2019-10-13 10:01 | Discharge Summary ---
Providers - Providers Date of Admission: 10/08/19 21:04 Date of discharge: 10/13/19 (1200) Attending physician: LESLIE LINDO MD 10/12/19 16:45 Consult to Case Management [CONS] Routine Services Needed at Discharge: Signal Maintenance Technician Notified:: Reyna Phone number called:: [phone] Was contact made?: Yes If yes, spoke with:: message left on case mgmt voicemail Time called:: 16:49 Comment:: message left Additional Physician Instructions: +THC Primary care physician: LESLIE LINDO MD Hospitalization Reason for admission: active labor Delivery: (secondary to failure to dilate) Procedure: primary low transverse Episiotomy: none Laceration: none Incision: dry, intact Other procedures: none complications: other (HTN) Discharge diagnosis: IUP at term delivered, other (Hypertention; Anemia) Hagerman baby: male Hospital course: See admission H & P; OB operative summary and PP progress notes Condition at discharge: Stable Disposition: DC-01 TO HOME OR SELFCARE - Discharge Diagnoses (1) S/P primary low transverse Status: Acute (2) Chronic benign essential hypertension in third trimester Status: Acute (3) Herpes genitalis in women Status: Acute (4) Anemia Status: Acute Qualifiers: Anemia type: other cause Other causes of anemia: acute posthemorrhagic Qualified Code(s): D62 - Acute posthemorrhagic anemia (5) Anemia affecting Status: Acute (6) 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 Status: Acute Plan - Discharge Medications Prescriptions: Ferrous Sulfate [Feosol 325 MG tab] 325 mg PO BID 30 Days #60 tablet labetaloL [Labetalol 100mg TAB] 300 mg PO BID 14 Days #28 tablet Ibuprofen [Motrin 800 MG tab] 800 mg PO Q6HR PRN #30 tablet PRN Reason: Pain , Severe (7-10) oxyCODONE /ACETAMINOPHEN [Percocet 5/325] 1 tab PO Q4HR #30 tab - Provider Discharge Summary Activity: routine, no sex for 6 weeks, no heavy lifting 4 weeks, no strenuous exercise Diet: other (Iron rich diet) Instructions: routine Additional instructions: [] Smoking cessation referral if applicable(refer to patient education folder for contact #) [] Refer to [facility] Booklet Call your doctor immediately for: * Fever > 100.5 * Heavy vaginal bleeding ( >1 pad per hour) * Severe persistent headache * Shortness of breath * Reddened, hot, painful area to leg or breast * Drainage or odor from incision. * Keep incision clean and dry at all times and follow doctor's instructions regarding bathing/showering * Schedule appt at office in 7 days for B/P and incision check - Follow up plan Follow up: LESLIE LINDO MD [Primary Care Provider] - 7 Days
[2019-10-13] MEDS: FERROUS SULFATE 325 MG TAB PO SCH (10:30)
[2019-10-13] MEDS: IBUPROFEN 800 MG TAB PO PRN ×2 (11:36→17:59)
[2019-10-13] MEDS: valACYclovir 500 MG TAB PO SCH (11:59)
[2019-10-13 16:48] VITALS: BP 154/97
== END 2019-10-13 18:10 | disposition home or self-care (01) | DRG 765 ==
LOC: TRG 20:50 → LD 21:04 → OB 10-13 04:04
PROVIDERS: ADMIT Obstetrics & Gynecology; ATTEND Obstetrics & Gynecology
PROC: 10D00Z1 Extraction of Products of Conception, Low, Open Approach (ICD-10-PCS; principal; 2019-10-11)
PROC: 10907ZC Drainage of Amniotic Fluid, Therapeutic from Products of Conception, Via Natural or Artificial Opening (ICD-10-PCS; 2019-10-11)
PROC: 3E0R3BZ Introduction of Anesthetic Agent into Spinal Canal, Percutaneous Approach (ICD-10-PCS; 2019-10-11)
PROC: 00HU33Z Insertion of Infusion Device into Spinal Canal, Percutaneous Approach (ICD-10-PCS; 2019-10-11)
DX: O10.02 Pre-existing essential hypertension complicating childbirth (principal); D62 Acute posthemorrhagic anemia; O98.42 Viral hepatitis complicating childbirth; O98.32 Other infections with a predominantly sexual mode of transmission complicating childbirth; B18.1 Chronic viral hepatitis B without delta-agent; O98.82 Other maternal infectious and parasitic diseases complicating childbirth; O99.02 Anemia complicating childbirth; A60.00 Herpesviral infection of urogenital system, unspecified; O99.62 Diseases of the digestive system complicating childbirth; K21.9 Gastro-esophageal reflux disease without esophagitis; O99.214 Obesity complicating childbirth; B95.1 Streptococcus, group B, as the cause of diseases classified elsewhere; E66.9 Obesity, unspecified; Z3A.37 37 weeks gestation of pregnancy; Z37.0 Single live birth; Z82.49 Family history of ischemic heart disease and other diseases of the circulatory system
CPT/HCPCS: 36415; 80053; 80307; 81015; 82728; 83615; 83735; 84145; 84450; 84460; 84550; 85014; 85018; 85025; 85027; 85049; 85379; 86140; 86592; 86706; 86803; 86850; 86900; 86901; 87806; G0378; C1765; J0290; J0360; J0690; J1170; J1885; J2405; J2590; J2765; J3475; J3490; J7120; J7121

== ENCOUNTER 2020-12-26 13:46 | Emergency (ER) | payer MEDICAID ==
[2020-12-26 14:41] VITALS: BP 165/101
[2020-12-26] MEDS ORDERED: ONDANSETRON 4 MG ODT TAB PO ONE (17:06)
--- NOTE | 2020-12-26 17:14 | Emergency Department Report ---
ED Headache HPI - General Chief Complaint: Headache Stated Complaint: HEADACHE Time Seen by Provider: 12/26/20 17:06 - History of Present Illness Initial Comments: Patient is a 30-year-old female presents emergency room with complaints of a left temporal headache that began this morning. She states it feels like a throbbing. She states that she took ibuprofen and Tylenol without much relief. Patient states that she has been out of her nifedipine for 3 weeks. She denies any vision changes, vomiting, diarrhea, fever, neck stiffness, numbness, weakness, speech disturbance, gait disturbance. Patient denies any other past medical history. No allergies to medications. She states her last menstrual cycle was the beginning of this month. Allergies/Adverse Reactions: Allergies No Known Allergies Allergy (Verified 10/02/19 19:13) Home Medications: Ambulatory Orders Cyclobenzaprine HCl [Flexeril 5 MG TAB] 5 mg PO Q8HR PRN #12 tab 10/30/15 Carbamide Peroxide 6.5% [Ear Wax Drops] 1 - 2 drops OT TID #1 bottle 07/04/17 Ibuprofen [Motrin 800 MG tab] 800 mg PO Q8HR PRN #20 tablet 07/04/17 Sulfamethoxazole/Trimethoprim [Bactrim DS TAB] 1 each PO BID #6 tablet 10/14/17 Ondansetron [Zofran Odt] 4 mg PO Q8HR PRN #14 tab.rapdis 02/25/18 cephALEXin [Keflex] 500 mg PO Q8HR #28 cap 02/25/18 traMADoL [Ultram 50 MG tab] 50 mg PO Q4HR PRN #14 tablet 02/25/18 Cholecalciferol (Vitamin D3) [Vitamin D3 50,000UNIT CAP] 10/02/19 Valacyclovir HCl [Valacyclovir] 10/02/19 Ibuprofen [Motrin 800 MG tab] 800 mg PO Q6HR PRN #30 tablet 10/11/19 oxyCODONE /ACETAMINOPHEN [Percocet 5/325] 1 tab PO Q4HR #30 tab 10/11/19 Ferrous Sulfate [Feosol 325 MG tab] 325 mg PO BID 30 Days #60 tablet 10/13/19 labetaloL [Labetalol 100mg TAB] 300 mg PO BID 14 Days #28 tablet 10/13/19 Butalb/Acetaminophen/Caffeine [Fioricet 50-300-40 mg CAP] 1 cap PO Q8HR PRN #12 cap 12/26/20 NIFEdipine XL [Procardia Xl] 60 mg PO DAILY #30 12/26/20 ED Review of Systems ROS: Stated complaint: HEADACHE Other details as noted in HPI Comment: All other systems reviewed and negative ED Past Medical Hx - Past Medical History Previous Medical History?: Yes Hx Hypertension: Yes Hx Heart Attack/AMI: No Hx Congestive Heart Failure: No Hx Diabetes: No Hx Deep Vein Thrombosis: No Hx Liver Disease: No (hep A and B) Hx Renal Disease: No Hx Sickle Cell Disease: No Hx Seizures: No Hx Kidney Stones: Yes Hx Asthma: No Hx COPD: No Hx HIV: No Additional medical history: Gallstones - Surgical History Hx Pacemaker: No Hx Internal Defibrillator: No Additional Surgical History: gallstones - Social History Smoking Status: Former Smoker - Medications Home Medications: Home Medications Medication Instructions Recorded Confirmed Last Taken Type Cyclobenzaprine HCl [Flexeril 5 MG 5 mg PO Q8HR PRN #12 tab 10/30/15 10/10/19 Unknown Rx TAB] Carbamide Peroxide 6.5% [Ear Wax 1 - 2 drops OT TID #1 bottle 07/04/17 10/10/19 Unknown Rx Drops] Ibuprofen [Motrin 800 MG tab] 800 mg PO Q8HR PRN #20 tablet 07/04/17 10/10/19 Unknown Rx Sulfamethoxazole/Trimethoprim 1 each PO BID #6 tablet 10/14/17 10/10/19 Unknown Rx [Bactrim DS TAB] Ondansetron [Zofran Odt] 4 mg PO Q8HR PRN #14 tab.rapdis 02/25/18 10/10/19 Unknown Rx cephALEXin [Keflex] 500 mg PO Q8HR #28 cap 02/25/18 10/10/19 Unknown Rx traMADoL [Ultram 50 MG tab] 50 mg PO Q4HR PRN #14 tablet 02/25/18 10/10/19 Unknown Rx Cholecalciferol (Vitamin D3) 10/02/19 Unknown History [Vitamin D3 50,000UNIT CAP] Valacyclovir HCl [Valacyclovir] 10/02/19 10/02/19 History Ibuprofen [Motrin 800 MG tab] 800 mg PO Q6HR PRN #30 tablet 10/11/19 Unknown Rx oxyCODONE /ACETAMINOPHEN [Percocet 1 tab PO Q4HR #30 tab 10/11/19 Unknown Rx 5/325] Ferrous Sulfate [Feosol 325 MG tab] 325 mg PO BID 30 Days #60 tablet 10/13/19 Unknown Rx labetaloL [Labetalol 100mg TAB] 300 mg PO BID 14 Days #28 tablet 10/13/19 Unknown Rx Butalb/Acetaminophen/Caffeine 1 cap PO Q8HR PRN #12 cap 12/26/20 Unknown Rx [Fioricet 50-300-40 mg CAP] NIFEdipine XL [Procardia Xl] 60 mg PO DAILY #30 12/26/20 Unknown Rx ED Physical Exam - General Limitations: No Limitations General appearance: alert, in no apparent distress - Head Head exam: Present: atraumatic, normocephalic - Eye Eye exam: Present: normal appearance, PERRL, EOMI - ENT ENT exam: Present: mucous membranes moist - Neck Neck exam: Present: normal inspection, full ROM. Absent: tenderness, meningismus - Respiratory Respiratory exam: Present: normal lung sounds bilaterally. Absent: respiratory distress, wheezes, rales, rhonchi, stridor, chest wall tenderness, accessory muscle use, decreased breath sounds, prolonged expiratory - Cardiovascular Cardiovascular Exam: Present: regular rate, normal rhythm, normal heart sounds. Absent: systolic murmur, diastolic murmur, rubs, gallop - Neurological Exam Neurological exam: Present: alert, oriented X3, CN II-XII intact, normal gait. Absent: motor sensory deficit - Psychiatric Psychiatric exam: Present: normal affect, normal mood - Skin Skin exam: Present: warm, dry, intact ED Course Vital Signs 12/26/20 14:39 Temperature 98.4 F Pulse Rate 62 Respiratory 16 Rate Blood Pressure 165/101 [Right] O2 Sat by Pulse 97 Oximetry ED Medical Decision Making - Medical Decision Making Patient is a 30-year-old female presents emergency room with complaints of a left temporal headache that began this morning. She states it feels like a throbbing. She states that she took ibuprofen and Tylenol without much relief. Patient states that she has been out of her nifedipine for 3 weeks. She denies any vision changes, vomiting, diarrhea, fever, neck stiffness, numbness, weakness, speech disturbance, gait disturbance. Patient denies any other past medical history. No allergies to medications. She states her last menstrual cycle was the beginning of this month. Vitals with elevated blood pressure, otherwise stable. No abnormality on physical examination was documented in hitesh t, no neuro deficits. Patient has had no acute trauma, she has no meningeal signs. Symptoms could be related to migraine headache versus headache from being off of her blood pressure medication. Patient given medication while in the emergency department with improvement of her headache. Patient given a refill of her home medication and given a prescription and take as needed for headache. Advised patient Please take medication as prescribed. Eat a low- sodium diet. Incorporate 30 to 60 minutes of daily exercise. Follow-up with your primary care doctor. Return to emergency room for new or worsening symptoms. Critical care attestation.: If time is entered above; I have spent that time in minutes in the direct care of this critically ill patient, excluding procedure time. ED Disposition Clinical Impression: Elevated blood pressure reading Headache Qualifiers: Headache type: unspecified Headache chronicity pattern: acute headache Intractability: not intractable Qualified Code(s): R51.9 - Headache, unspecified Disposition: DC- TO HOME OR SELFCARE Is pt being admited?: No Does the pt Need Aspirin: No Condition: Stable Instructions: Managing Your Hypertension, Migraine Headache Additional Instructions: Please take medication as prescribed. Eat a low-sodium diet. Incorporate 30 to 60 minutes of daily exercise. Follow-up with your primary care doctor. Return to emergency room for new or worsening symptoms. Prescriptions: Butalb/Acetaminophen/Caffeine [Fioricet 50-300-40 mg CAP] 1 cap PO Q8HR PRN #12 cap PRN Reason: headache NIFEdipine XL [Procardia Xl] 60 mg PO DAILY #30 Referrals: KARL JAVED MD [Staff Physician] - 2-3 Days [facility] [Provider Group] - 2-3 Days Time of Disposition: 17:17 Print Language: PERSIAN
[2020-12-26] MEDS ORDERED: SUMAtriptan SUCCINATE 25 MG TAB PO ONE (18:00)
== END 2020-12-26 18:14 | disposition home or self-care (01) ==
LOC: ED 13:46
DX: R03.0 Elevated blood-pressure reading, without diagnosis of hypertension (principal); R51.9 Headache, unspecified; I10 Essential (primary) hypertension; Z79.899 Other long term (current) drug therapy; Z87.891 Personal history of nicotine dependence; Z98.890 Other specified postprocedural states
CPT/HCPCS: 99282; Q0162

== ENCOUNTER 2022-01-04 15:42 | Outpatient (CLI) | payer MEDICAID ==
[2022-01-04] MEDS ORDERED: LACTATED RINGERS 1,000 ML IV ONE (16:22)
[2022-01-04 17:32] LABS: Hematocrit 28.1 % (30.3-42.9); Hemoglobin 9.2 gm/dl (10.1-14.3); Mean Corpuscular HGB Conc 33 % (30-34); Mean Corpuscular Volume 81 fl (79-97); Platelet Count 121 K/mm3 (140-440); Red Blood Count 3.46 M/mm3 (3.65-5.03); Red Cell Distribution Width 13.8 % (13.2-15.2)
[2022-01-04 17:44] LABS: Alanine Aminotransferase 13 units/L (7-56); Uric Acid 4.1 mg/dL (3.5-7.6)
[2022-01-04 18:06] LABS: Protein/Creatinine Ratio,Urine 0.22
[2022-01-04 18:21] LABS: Mucus,Urine 3+ /HPF
[2022-01-04 18:27] LABS: Bilirubin,Urine Negative (Negative); Blood,Urine Negative (Negative); Color,Urine Straw (Yellow); PH,Urine 7.5 (5.0-7.0)
[2022-01-04 18:28] LABS: Urobilinogen,Urine < 2.0 mg/dL (<2.0)
--- NOTE | 2022-01-04 19:55 | History and Physical Report ---
History of Present Illness Date of examination: 01/04/22 Date of admission: 01/04/2022 Chief complaint: Elevated BP History of present illness: 31 yo EDC 02/14 @ 34 1/7 weeks with c/o elevated BP. Pt states BP at home was 189/112. Pt states she has a h/o chronic hypertension. BP meds was d/no during the . Pt. denies headache , blurry vision or epigastric pain. Elevated BP in triage Past History Past Medical History: hypertension Past Surgical History: cholecystectomy (2014) Family/Genetic History: hypertension Social history: no significant social history - Obstetrical History Expected Date of Delivery: 02/14/22 Actual Gestation: 34 Week(s) 1 Day(s) : 3 Para: 2 Hx # Term Pregnancies: 0 Number of Pregnancies: 0 Spontaneous Abortions: 0 Induced : 0 Number of Living Children: 2 #1 Infant Gender: Female year: , Method of Delivery: Vaginal Gestational age at delivery: 37 Complications: other (preeclampsia) #2 Gender: Male year: ,[birth year] Method of Delivery: Vaginal Gestational age at delivery: 37 Complications: other (preeclampsia) Medications and Allergies Allergies Allergy/AdvReac Type Severity Reaction Status Date / Time No Known Allergies Allergy Verified 10/02/19 19:13 Home Medications Medication Instructions Recorded Confirmed Last Taken Type Cyclobenzaprine HCl [Flexeril 5 MG 5 mg PO Q8HR PRN #12 tab 10/30/15 10/10/19 Unknown Rx TAB] Carbamide Peroxide 6.5% [Ear Wax 1 - 2 drops OT TID #1 bottle 07/04/17 10/10/19 Unknown Rx Drops] Ibuprofen [Motrin 800 MG tab] 800 mg PO Q8HR PRN #20 tablet 07/04/17 10/10/19 Unknown Rx Sulfamethoxazole/Trimethoprim 1 each PO BID #6 tablet 10/14/17 10/10/19 Unknown Rx [Bactrim DS TAB] Ondansetron [Zofran Odt] 4 mg PO Q8HR PRN #14 tab.rapdis 02/25/18 10/10/19 Unknown Rx cephALEXin [Keflex] 500 mg PO Q8HR #28 cap 02/25/18 10/10/19 Unknown Rx traMADoL [Ultram 50 MG tab] 50 mg PO Q4HR PRN #14 tablet 02/25/18 10/10/19 Unknown Rx Cholecalciferol (Vitamin D3) 10/02/19 Unknown History [Vitamin D3 50,000UNIT CAP] Valacyclovir HCl [Valacyclovir] 10/02/19 10/02/19 History Ibuprofen [Motrin 800 MG tab] 800 mg PO Q6HR PRN #30 tablet 10/11/19 Unknown Rx oxyCODONE /ACETAMINOPHEN [Percocet 1 tab PO Q4HR #30 tab 10/11/19 Unknown Rx 5/325] Ferrous Sulfate [Feosol 325 MG tab] 325 mg PO BID 30 Days #60 tablet 10/13/19 Unknown Rx labetaloL [Labetalol 100mg TAB] 300 mg PO BID 14 Days #28 tablet 10/13/19 Unknown Rx Butalb/Acetaminophen/Caffeine 1 cap PO Q8HR PRN #12 cap 12/26/20 Unknown Rx [Fioricet 50-300-40 mg CAP] NIFEdipine XL [Procardia Xl] 60 mg PO DAILY #30 12/26/20 Unknown Rx - Vital Signs Vital signs: Vital Signs Pulse BP 65 162/100 01/04/22 16:33 01/04/22 16:33 Temp Pulse Resp BP Pulse Ox 99.5 F 63 20 145/76 99 01/04/22 17:17 01/04/22 19:48 01/04/22 17:17 01/04/22 19:34 01/04/22 19:48 - Physical Exam Cardiovascular: Regular rate, Normal S1, Normal S2 Lungs: Positive: Clear to auscultation Uterus: Positive: enlarged Extremities: Positive: edema Deep Tendon Reflex Grade: Normal +2 - Obstetrical FHR: category 1 Uterine Contraction Monitor Mode: External Cervical Dilatation: 0 Cervical Effacement Percentage: 0 Uterine Contraction Pattern: Irregular Results Result Diagrams: 01/04/22 16:55 01/04/22 16:23 Abnormal lab results 01/04/22 01/04/22 01/04/22 Range/Units 16:23 16:40 16:40 RBC (3.65-5.03) M/mm3 Hgb (10.1-14.3) gm/dl Hct (30.3-42.9) % MCH (28-32) pg Plt Count (140-440) K/mm3 Lactate Dehydrogenase 237 H (91-180) units/L Urine pH 7.5 H (5.0-7.0) U Epithel Cells (Auto) 19.0 H (0-13.0) /HPF Urine Creatinine 207.0 H (0.1-20.0) mg/dL Urine Total Protein 45 H (5-11.8) mg/dL 01/04/22 Range/Units 16:55 RBC 3.46 L (3.65-5.03) M/mm3 Hgb 9.2 L (10.1-14.3) gm/dl Hct 28.1 L (30.3-42.9) % MCH 27 L (28-32) pg Plt Count 121 L (140-440) K/mm3 Lactate Dehydrogenase (91-180) units/L Urine pH (5.0-7.0) U Epithel Cells (Auto) (0-13.0) /HPF Urine Creatinine (0.1-20.0) mg/dL Urine Total Protein (5-11.8) mg/dL All other labs normal. Assessment and Plan IUP @ 34 1/7 weeks H/o chronic hypertension R/o preeclampia BP improved in triage P Admit for observation PIH labs 24 hr urine for protein and creatinine clearance [facility]. [facility] consult US.
[2022-01-04] MEDS: BETAMET ACET/BETAMET NA PH 6 MG/ML INJ 5 ML MDV IM SCH (22:04)
--- NOTE | 2022-01-05 00:06 | Event Note ---
Date: 01/04/22 CC: Chronic hypertension, rule out superimposed preeclampsia HPI: 31-year-old at 34-2/7 weeks gestation is admitted under observation in labor and delivery with chronic hypertension in order to rule out superimposed preeclampsia. Blood pressure at home was >160/110. The patient is not on any oral antihypertensive medications at home. Blood pressure in OB triage was also intermittently >160/110. The patient did not receive any IV antihypertensives, and blood pressures spontaneously decreased to <160/110. There are no headaches, diplopia, right upper quadrant pain, or scotomata. The patient is undergoing a 24-hour urine protein collection and serial blood pressure measurements. OBJECTIVE: BP= 142/96 NST= reactive SVE= closed/thick/-3 LABS: Urine Protein to Creatinine Ratio (UPCR)= 0.21 Estimated 24 hour urine protein= 238 mg Hgb= 9.2 HCT= 28.1 PLT= 121 AST= 17 ALT= 13 Creat= 0.6 Uric Acid= 4.1 LDH= 237 GBS Culture= ordered Formal 24-hour urine protein collection= ordered and in process RADIOLOGY: OB US Limited= SLIUP. Vertex. EFW= 2767 g (88th). TROY= 7.2 cm. IMPRESSION: 1.) 34 weeks 2.) Chronic hypertension 3.) R/O superimposed preeclampsia 4.) Anemia PLAN: 1.) care is up-to-date at [facility]. Morning shift nursing staff to request records tomorrow. 2.) GBS culture is ordered. 3.) glucocorticoids were ordered, and first dose of betamethasone was administered. 4.) Clinically, I suspect that this patient has an exacerbation of chronic hypertension. I do not suspect superimposed preeclampsia as the estimated 24 urine protein is 238 mg. 5.) However, continue the formal 24 urine protein collection. 6.) Start labetalol 100 mg p.o. twice daily to keep blood pressure <140/90 per recent [employer] recommendations [Jeni AT, Ana SILVESTRE, Topher Jj, Ki L, Camilo B, Madhu K, Minh BL, Angela J, Mani K, Tin RK, Fransico K. Treatment for mild chronic hypertension during . [place] Journal of Medicine. 2021November 09;386(50):1781-92.] 7.) Start oral iron supplementation for anemia. 8.) Start baby aspirin 81 mg daily. 9.) Maternal- medicine consultation was ordered for further input.
[2022-01-05] MEDS ORDERED: ACETAMINOPHEN 500 MG TAB PO PRN (00:07)
--- NOTE | 2022-01-05 00:08 | Ultrasound Report ---
ULTRASOUND OBSTETRIC COMPLETE INDICATION / CLINICAL INFORMATION: Preeclampsia. Clinical Gestational Age (GA) in weeks, days: 34 weeks 1 day TECHNIQUE: Transabdominal. COMPARISON: None available. FINDINGS: NUMBER: Single PRESENTATION: cephalic PLACENTA: maternal right and free of the os. MATERNAL ADNEXA: No significant abnormality. AMNIOTIC FLUID VOLUME: normal AMNIOTIC FLUID INDEX (TROY) in cm (if measured): 7.2 MEASUREMENTS: - Biparietal Diameter = 8.5 cm = 34 weeks 1 day - Head Circumference = 28.7 cm = 31 weeks 4 days - Abdominal Circumference = 34.4 cm = 38 weeks 2 days - Femur Length = 6.3 cm = 35 weeks 5 days - Estimated Weight (in grams, if calculated): 2767 - Heart Rate (beats per minute): 150 ADDITIONAL FINDINGS: Cervix measures 3.2 cm. PERCENTILE ESTIMATED WEIGHT (if calculated): 50 AVERAGE ULTRASOUND AGE (AUA) in weeks, days = 34 weeks 1 IMPRESSION: 1. Single intrauterine with AUA of 34 weeks 1 day. 2. No significant sonographic abnormality. Signer Name: Jerome Gutiérrez MD Signed: 01/05/2022 12:03 AM Workstation Name: [id number]
[2022-01-05] MEDS ORDERED: PRENATAL VIT27-FE FUMARATE-FOLIC ACID VIT TAB PO SCH (10:00)
[2022-01-05] MEDS ORDERED: ASPIRIN EC 81 MG TAB PO SCH (10:00)
[2022-01-05] MEDS ORDERED: FERROUS SULFATE 325 MG TAB PO SCH (10:00)
[2022-01-05] MEDS: DOCUSATE SODIUM 100 MG CAP PO SCH ×2 (10:32→21:54)
--- NOTE | 2022-01-05 12:59 | Progress Note ---
Assessment and Plan IMPRESSION: 1. 34.2 weeks 2. Chronic hypertension - pt reports prior to this admission she under no antihypertensive therapy. 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 she was not referred to MFM 3. R/O superimposed preeclampsia - 24 hr urine in progress - estimated 24 urine protein was 238 mg - history of PreE times 2 4. Anemia 5. BMZ for FLM in progress 6. Decreased TROY for EGA OB US Limited= SIUP. Vertex. EFW= 2767 g (88th). TROY= 7.2 cm. PLAN: 1.) Patient is to remain in patient pending 24 hr urine and repeat BPP - when patient is discharged weekly [facility] appt - timing of delivery will be provided upon follow up with [facility] 2.) In agreement her current medical therapy : Labetalol 100 mg p.o. twice daily 3.) Complete glucocorticoids 4.) NICU consult 5.) Continue the formal 24 urine protein collection. 6.) Repeat BPP in 24 hrs 7.) Continue iron supplementation for anemia. 8.) Continue baby aspirin 81 mg daily. Subjective - Subjective Date of service: 01/05/22 (31 yo EDC 02/14/22 @ 34.2 wks with c/o elevated BP. Pt stated BP at home was 189/112. Pt stated she has a h/o chronic hypertension. BP meds was d/no during the . Pt. denies headache , blurry vision or epigastric pain. In addition denies DFM Elevated BP was noted in triage) Patient reports: movement normal, other (Denies sxs of Super Imposed PreEclampsia ), no contractions Objective - Vital Signs Vital Signs: Vital Signs - 12hr 01/05/22 01/05/22 01/05/22 00:56 01:01 01:06 Temperature Pulse Rate 69 69 62 Respiratory Rate Blood Pressure O2 Sat by Pulse 95 100 100 Oximetry O2 Sat by Pulse Oximetry [ Throughout] 01/05/22 01/05/22 01/05/22 01:10 01:11 01:16 Temperature Pulse Rate 74 56 L 62 Respiratory Rate Blood Pressure O2 Sat by Pulse 94 96 97 Oximetry O2 Sat by Pulse Oximetry [ Throughout] 01/05/22 01/05/22 01/05/22 01:21 01:26 01:31 Temperature Pulse Rate 71 65 70 Respiratory Rate Blood Pressure O2 Sat by Pulse 96 99 99 Oximetry O2 Sat by Pulse Oximetry [ Throughout] 01/05/22 01/05/22 01/05/22 01:36 01:37 01:39 Temperature Pulse Rate 71 75 Respiratory Rate Blood Pressure 132/71 O2 Sat by Pulse 100 92 Oximetry O2 Sat by Pulse Oximetry [ Throughout] 01/05/22 01/05/22 01/05/22 01:41 01:46 01:51 Temperature Pulse Rate 75 83 83 Respiratory Rate Blood Pressure O2 Sat by Pulse 96 98 98 Oximetry O2 Sat by Pulse Oximetry [ Throughout] 01/05/22 01/05/22 01/05/22 01:56 02:01 02:06 Temperature Pulse Rate 71 74 65 Respiratory Rate Blood Pressure O2 Sat by Pulse 98 100 99 Oximetry O2 Sat by Pulse Oximetry [ Throughout] 01/05/22 01/05/22 01/05/22 02:11 02:16 02:21 Temperature Pulse Rate 75 64 75 Respiratory Rate Blood Pressure O2 Sat by Pulse 100 99 98 Oximetry O2 Sat by Pulse Oximetry [ Throughout] 01/05/22 01/05/22 01/05/22 02:22 02:26 02:31 Temperature Pulse Rate 63 63 65 Respiratory Rate Blood Pressure 133/64 O2 Sat by Pulse 99 100 Oximetry O2 Sat by Pulse Oximetry [ Throughout] 01/05/22 01/05/22 01/05/22 02:36 02:41 02:46 Temperature Pulse Rate 62 70 70 Respiratory Rate Blood Pressure O2 Sat by Pulse 98 98 98 Oximetry O2 Sat by Pulse Oximetry [ Throughout] 01/05/22 01/05/22 01/05/22 02:51 02:56 03:01 Temperature Pulse Rate 71 73 69 Respiratory Rate Blood Pressure O2 Sat by Pulse 98 98 98 Oximetry O2 Sat by Pulse Oximetry [ Throughout] 01/05/22 01/05/22 01/05/22 03:06 03:07 03:11 Temperature Pulse Rate 74 90 66 Respiratory Rate Blood Pressure 138/72 O2 Sat by Pulse 98 98 Oximetry O2 Sat by Pulse Oximetry [ Throughout] 01/05/22 01/05/22 01/05/22 03:16 03:20 03:21 Temperature Pulse Rate 64 69 79 Respiratory Rate Blood Pressure O2 Sat by Pulse 99 94 99 Oximetry O2 Sat by Pulse Oximetry [ Throughout] 01/05/22 01/05/22 01/05/22 03:26 03:31 03:36 Temperature Pulse Rate 77 69 65 Respiratory Rate Blood Pressure O2 Sat by Pulse 98 98 99 Oximetry O2 Sat by Pulse Oximetry [ Throughout] 01/05/22 01/05/22 01/05/22 03:42 03:47 03:52 Temperature Pulse Rate 87 86 88 Respiratory Rate Blood Pressure 141/85 O2 Sat by Pulse 99 99 99 Oximetry O2 Sat by Pulse Oximetry [ Throughout] 01/05/22 01/05/22 01/05/22 03:57 03:59 04:02 Temperature Pulse Rate 73 70 86 Respiratory Rate Blood Pressure O2 Sat by Pulse 99 0 L 98 Oximetry O2 Sat by Pulse Oximetry [ Throughout] 01/05/22 01/05/22 01/05/22 04:07 04:09 04:12 Temperature 98.2 F Pulse Rate 84 85 Respiratory 18 Rate Blood Pressure O2 Sat by Pulse 98 99 Oximetry O2 Sat by Pulse Oximetry [ Throughout] 01/05/22 01/05/22 01/05/22 04:17 04:22 04:27 Temperature Pulse Rate 87 100 H 84 Respiratory Rate Blood Pressure O2 Sat by Pulse 98 98 98 Oximetry O2 Sat by Pulse Oximetry [ Throughout] 01/05/22 01/05/22 01/05/22 04:32 04:37 04:42 Temperature Pulse Rate 105 H 78 68 Respiratory Rate Blood Pressure 138/64 O2 Sat by Pulse 98 98 99 Oximetry O2 Sat by Pulse Oximetry [ Throughout] 01/05/22 01/05/22 01/05/22 04:47 04:52 04:57 Temperature Pulse Rate 71 71 71 Respiratory Rate Blood Pressure O2 Sat by Pulse 98 98 97 Oximetry O2 Sat by Pulse Oximetry [ Throughout] 01/05/22 01/05/22 01/05/22 05:02 05:07 05:12 Temperature Pulse Rate 75 66 66 Respiratory Rate Blood Pressure O2 Sat by Pulse 99 99 99 Oximetry O2 Sat by Pulse Oximetry [ Throughout] 01/05/22 01/05/22 01/05/22 05:17 05:22 05:27 Temperature Pulse Rate 85 65 76 Respiratory Rate Blood Pressure 139/86 O2 Sat by Pulse 98 99 100 Oximetry O2 Sat by Pulse Oximetry [ Throughout] 01/05/22 01/05/2222 05:32 05:37 05:42 Temperature Pulse Rate 62 74 74 Respiratory Rate Blood Pressure O2 Sat by Pulse 98 99 99 Oximetry O2 Sat by Pulse Oximetry [ Throughout] 01/05/22 01/05/22 01/05/22 05:47 05:52 05:57 Temperature Pulse Rate 73 86 70 Respiratory Rate Blood Pressure O2 Sat by Pulse 99 99 98 Oximetry O2 Sat by Pulse Oximetry [ Throughout] 01/05/22 01/05/22 01/05/22 06:02 06:07 06:12 Temperature Pulse Rate 69 60 72 Respiratory Rate Blood Pressure 146/71 O2 Sat by Pulse 98 99 97 Oximetry O2 Sat by Pulse Oximetry [ Throughout] 01/05/22 01/05/22 01/05/22 06:17 06:22 06:27 Temperature Pulse Rate 69 72 73 Respiratory Rate Blood Pressure O2 Sat by Pulse 97 97 97 Oximetry O2 Sat by Pulse Oximetry [ Throughout] 01/05/22 01/05/22 01/05/22 06:32 06:37 06:42 Temperature Pulse Rate 74 65 68 Respiratory Rate Blood Pressure O2 Sat by Pulse 98 96 96 Oximetry O2 Sat by Pulse Oximetry [ Throughout] 01/05/22 01/05/22 01/05/22 06:47 06:52 06:57 Temperature Pulse Rate 65 72 64 Respiratory Rate Blood Pressure 135/68 O2 Sat by Pulse 97 98 97 Oximetry O2 Sat by Pulse Oximetry [ Throughout] 01/05/22 01/05/22 01/05/22 07:02 07:07 07:12 Temperature Pulse Rate 67 65 72 Respiratory Rate Blood Pressure O2 Sat by Pulse 97 97 97 Oximetry O2 Sat by Pulse Oximetry [ Throughout] 01/05/22 01/05/22 01/05/22 07:17 07:22 07:27 Temperature Pulse Rate 66 71 70 Respiratory Rate Blood Pressure O2 Sat by Pulse 97 97 98 Oximetry O2 Sat by Pulse Oximetry [ Throughout] 01/05/22 01/05/22 01/05/22 07:32 07:37 07:47 Temperature Pulse Rate 82 68 80 Respiratory Rate Blood Pressure 131/69 O2 Sat by Pulse 99 98 99 Oximetry O2 Sat by Pulse Oximetry [ Throughout] 01/05/22 01/05/22 01/05/22 07:52 07:57 08:02 Temperature Pulse Rate 91 H 63 80 Respiratory Rate Blood Pressure O2 Sat by Pulse 99 98 98 Oximetry O2 Sat by Pulse Oximetry [ Throughout] 01/05/22 01/05/22 01/05/22 08:07 08:12 08:17 Temperature Pulse Rate 67 61 72 Respiratory Rate Blood Pressure O2 Sat by Pulse 99 100 100 Oximetry O2 Sat by Pulse Oximetry [ Throughout] 01/05/22 01/05/22 01/05/22 08:22 08:27 08:32 Temperature Pulse Rate 75 63 67 Respiratory Rate Blood Pressure 143/89 O2 Sat by Pulse 100 100 100 Oximetry O2 Sat by Pulse Oximetry [ Throughout] 01/05/22 01/05/22 01/05/22 08:37 08:38 08:42 Temperature Pulse Rate 72 91 H Respiratory Rate Blood Pressure O2 Sat by Pulse 100 100 Oximetry O2 Sat by Pulse 100 Oximetry [ Throughout] 01/05/22 01/05/22 01/05/22 08:45 08:47 08:52 Temperature 98.5 F Pulse Rate 80 98 H Respiratory 18 Rate Blood Pressure O2 Sat by Pulse 99 99 Oximetry O2 Sat by Pulse Oximetry [ Throughout] 01/05/22 01/05/22 01/05/22 08:57 09:02 09:07 Temperature Pulse Rate 78 98 H 70 Respiratory Rate Blood Pressure 163/91 O2 Sat by Pulse 99 99 100 Oximetry O2 Sat by Pulse Oximetry [ Throughout] 01/05/22 01/05/22 01/05/22 09:12 09:17 09:22 Temperature Pulse Rate 79 76 72 Respiratory Rate Blood Pressure O2 Sat by Pulse 100 100 99 Oximetry O2 Sat by Pulse Oximetry [ Throughout] 01/05/22 01/05/22 01/05/22 09:27 09:32 09:37 Temperature Pulse Rate 71 94 H 85 Respiratory Rate Blood Pressure O2 Sat by Pulse 99 98 98 Oximetry O2 Sat by Pulse Oximetry [ Throughout] 01/05/22 01/05/22 01/05/22 09:42 09:47 09:52 Temperature Pulse Rate 81 87 90 Respiratory Rate Blood Pressure 128/74 O2 Sat by Pulse 98 99 99 Oximetry O2 Sat by Pulse Oximetry [ Throughout] 01/05/22 01/05/22 01/05/22 09:57 10:02 10:07 Temperature Pulse Rate 72 103 H 87 Respiratory Rate Blood Pressure O2 Sat by Pulse 99 100 100 Oximetry O2 Sat by Pulse Oximetry [ Throughout] 01/05/22 01/05/22 01/05/22 10:12 10:17 10:22 Temperature Pulse Rate 74 76 75 Respiratory Rate Blood Pressure O2 Sat by Pulse 99 99 99 Oximetry O2 Sat by Pulse Oximetry [ Throughout] 01/05/22 01/05/22 01/05/22 10:27 10:32 10:33 Temperature Pulse Rate 71 102 H 93 H Respiratory Rate Blood Pressure 142/99 142/99 O2 Sat by Pulse 100 100 Oximetry O2 Sat by Pulse Oximetry [ Throughout] 01/05/22 01/05/22 01/05/22 10:37 10:42 10:47 Temperature Pulse Rate 87 75 79 Respiratory Rate Blood Pressure 146/96 O2 Sat by Pulse 100 100 100 Oximetry O2 Sat by Pulse Oximetry [ Throughout] 01/05/22 01/05/22 01/05/22 10:54 10:59 11:04 Temperature Pulse Rate 106 H 77 70 Respiratory Rate Blood Pressure O2 Sat by Pulse 100 100 99 Oximetry O2 Sat by Pulse Oximetry [ Throughout] 01/05/22 01/05/22 01/05/22 11:09 11:14 11:19 Temperature Pulse Rate 76 68 69 Respiratory Rate Blood Pressure O2 Sat by Pulse 98 99 99 Oximetry O2 Sat by Pulse Oximetry [ Throughout] 01/05/22 01/05/22 01/05/22 11:22 11:24 11:29 Temperature Pulse Rate 70 74 79 Respiratory Rate Blood Pressure 138/75 O2 Sat by Pulse 99 100 Oximetry O2 Sat by Pulse Oximetry [ Throughout] 01/05/22 01/05/22 01/05/22 11:33 11:34 11:39 Temperature Pulse Rate 89 92 H 99 H Respiratory Rate Blood Pressure 133/76 O2 Sat by Pulse 100 100 Oximetry O2 Sat by Pulse Oximetry [ Throughout] 01/05/22 01/05/22 01/05/22 11:44 11:49 11:54 Temperature Pulse Rate 87 85 97 H Respiratory Rate Blood Pressure O2 Sat by Pulse 100 98 99 Oximetry O2 Sat by Pulse Oximetry [ Throughout] 01/05/22 01/05/22 01/05/22 11:59 12:04 12:05 Temperature Pulse Rate 100 H 84 75 Respiratory Rate Blood Pressure O2 Sat by Pulse 99 99 88 Oximetry O2 Sat by Pulse Oximetry [ Throughout] - Exam Breasts: deferred Cardiovascular: Regular rate Lungs: Normal air movement Abdomen: Present: soft. Absent: tenderness, guarding Uterus: Absent: tenderness FHR: other (Per RN NST CAT 1 ) Uterine Contraction Monitor Mode: Palpation (no ctx palpable) Uterine Tone Measurement Phase: Resting Extremities: edema (trace edema ) - Labs Labs: Abnormal Labs 01/04/22 01/04/22 01/04/22 16:23 16:40 16:40 RBC Hgb Hct MCH Plt Count Lactate Dehydrogenase 237 H Urine pH 7.5 H U Epithel Cells (Auto) 19.0 H Urine Creatinine 207.0 H Urine Total Protein 45 H 01/04/22 16:55 RBC 3.46 L Hgb 9.2 L Hct 28.1 L MCH 27 L Plt Count 121 L Lactate Dehydrogenase Urine pH U Epithel Cells (Auto) Urine Creatinine Urine Total Protein Laboratory Results - last 24 hr 01/04/22 01/04/22 01/04/22 16:23 16:40 16:40 WBC RBC Hgb Hct MCV MCH MCHC RDW Plt Count Creatinine 0.6 Estimated GFR > 60 Uric Acid 4.1 AST 17 ALT 13 Lactate Dehydrogenase 237 H Urine Color Straw Urine Turbidity Slightly cloudy Urine pH 7.5 H Ur Specific [place] 1.010 Urine Protein 30 mg/dl Urine Glucose (UA) Negative Urine Ketones Negative Urine Blood Negative Urine Nitrite Negative Ur Reducing Substances Not Reportable Urine Bilirubin Negative Urine Ictotest Not Reportable Urine Urobilinogen < 2.0 Ur Leukocyte Esterase Trace Urine WBC (Auto) 5.0 Urine RBC (Auto) 13.0 U Epithel Cells (Auto) 19.0 H Urine Mucus 3+ Urine Creatinine 207.0 H Protein/Creatinin Ratio 0.22 Urine Total Protein 45 H SARS-CoV-2 (PCR) Blood Type Antibody Screen 01/04/22 01/04/22 01/05/22 16:55 18:00 10:05 WBC 7.3 RBC 3.46 L Hgb 9.2 L Hct 28.1 L MCV 81 MCH 27 L MCHC 33 RDW 13.8 Plt Count 121 L Creatinine Estimated GFR Uric Acid AST ALT Lactate Dehydrogenase Urine Color Urine Turbidity Urine pH Ur Specific [place] Urine Protein Urine Glucose (UA) Urine Ketones Urine Blood Urine Nitrite Ur Reducing Substances Urine Bilirubin Urine Ictotest Urine Urobilinogen Ur Leukocyte Esterase Urine WBC (Auto) Urine RBC (Auto) U Epithel Cells (Auto) Urine Mucus Urine Creatinine Protein/Creatinin Ratio Urine Total Protein SARS-CoV-2 (PCR) Negative Blood Type A POSITIVE Antibody Screen Negative - Results US- obstetric: report reviewed (see chart for full report )
[2022-01-05 20:41] LABS: Creatinine 24 Hour,Urine 1.2 (0.8-2.8); Creatinine,Urine 118.1 mg/dL (0.1-20.0)
[2022-01-05] MEDS: BETAMET ACET/BETAMET NA PH 6 MG/ML INJ 5 ML MDV IM SCH (21:54)
--- NOTE | 2022-01-06 07:36 | Event Note ---
Date: 01/06/22 S: feels good, wants to go home O: BP WNL on Labetalol 100 mg po bid. Total urine protein 230 A: CHTN on meds at 34.3 weeks P: Discharge home today. F/U in office this week. Medication sent to pharmacy
--- NOTE | 2022-01-06 07:39 | Discharge Summary ---
Providers - Providers Date of Admission: January 04 Date of discharge: 01/06/22 Attending physician: YONAS VARELA MD 01/05/22 09:50 Consult to Physician [CONS] Routine Comment: Consulting Provider: YONAS VARELA Physician Instructions: Reason For Exam: CHTN, R/O Preeclampsia Primary care physician: YONAS VARELA MD Hospitalization Reason for admission: other (CHTN @ 34.1 weeks) Hospital course: Started on Labetalol 100 mg po bid, BMZ complete. 24 urine urine 230. Condition at discharge: Good Disposition: 01 HOME / SELF CARE / HOMELESS Plan - Discharge Medications Prescriptions: labetaloL [Labetalol 100mg TAB] 100 mg PO BID #60 tab - Provider Discharge Summary Activity: routine Diet: routine Instructions: other Additional instructions: F/U in office in one week. Discharge instructions given - Follow up plan Follow up: YONAS VARELA MD [Primary Care Provider] - 7 Days
[2022-01-06 07:41] VITALS: BP 135/74
== END 2022-01-06 08:01 | disposition home or self-care (01) ==
LOC: TRG 15:42 → APU 15:45 → LD 18:51 → TRG 01-06 08:01
PROVIDERS: ATTEND Obstetrics & Gynecology
DX: O13.3 Gestational [pregnancy-induced] hypertension without significant proteinuria, third trimester (principal); O99.013 Anemia complicating pregnancy, third trimester; D64.9 Anemia, unspecified; O99.613 Diseases of the digestive system complicating pregnancy, third trimester; K21.9 Gastro-esophageal reflux disease without esophagitis; O99.213 Obesity complicating pregnancy, third trimester; E66.9 Obesity, unspecified; Z20.822 Contact with and (suspected) exposure to COVID-19; Z87.891 Personal history of nicotine dependence; Z3A.34 34 weeks gestation of pregnancy
CPT/HCPCS: 36415; 59025; 76816; 81001; 82565; 82570; 83615; 84156; 84450; 84460; 84550; 85027; 86850; 86900; 86901; 87116; 96360; 96361; 96372; J0702; J7120; U0003; 76805

== ENCOUNTER 2022-01-11 14:21 | Inpatient (IN) | payer MEDICAID ==
[2022-01-11] MEDS ORDERED: LACTATED RINGERS 500 ML IV ONE (15:15)
[2022-01-11] MEDS ORDERED: MAGNESIUM SULFATE 4 GM/100 ML BAG IV ONE (15:44)
[2022-01-11] MEDS ORDERED: MAGNESIUM SULFATE 40GM/1000ML 40 GM/1,000 ML BAG IV SCH (16:00)
[2022-01-11] MEDS ORDERED: ACETAMINOPHEN 325 MG TAB PO PRN (16:19)
--- NOTE | 2022-01-11 16:26 | History and Physical Report ---
History of Present Illness Date of examination: 01/11/22 Date of admission: 01/11/2022 Chief complaint: Sent from the office for elevated BP History of present illness: 31 Y/O with Hx of PIH presents to Labor and delivery from the office with severe range blood pressures 170/110 today. She was admitted to the hospital last week and was started on Labetalol 100mg po bid and was given betamethasone and then discharged home. She has a hx of a with her last baby and desires TOLAC. Past History Past Surgical History: cholecystectomy, section Social history: no significant social history - Obstetrical History Expected Date of Delivery: 02/08/22 Actual Gestation: 36 Week(s) 0 Day(s) : 3 Para: 2 Number of Living Children: 2 Medications and Allergies Allergies Allergy/AdvReac Type Severity Reaction Status Date / Time No Known Allergies Allergy Verified 10/02/19 19:13 Home Medications Medication Instructions Recorded Confirmed Last Taken Type Multivitamin Tablet 1 tab PO DAILY 01/05/22 01/05/22 01/04/22 History labetaloL [Labetalol 100mg TAB] 100 mg PO BID #60 tab 01/05/22 Unknown Rx Active Meds: Active Medications Acetaminophen (Acetaminophen 325 Mg Tab) 650 mg PO Q4H PRN PRN Reason: Pain MILD(1-3)/Fever >100.5/RIZO Hydralazine HCl (Hydralazine 20 Mg/1 Ml Inj) 5 mg IV Q30MIN PRN PRN Reason: Hypertension Magnesium Sulfate (Magnesium Sulfate 40gm/1000ml) 40 gm in 1,000 mls @ 25 mls/hr IV DIRECT MICHELET Labetalol HCl (Labetalol 200 Mg Tab) 200 mg PO TID MICHELET Multivitamins/Iron/Calcium ( Znq10-Gn Fumarate-Folic Acid Vit Tab) 1 each PO QDAY MICHELET Review of Systems All systems: negative - Vital Signs Vital signs: Vital Signs Pulse Pulse Ox 88 98 01/11/22 14:54 01/11/22 14:54 Temp Pulse Resp BP Pulse Ox 98.4 F 90 179/113 98 01/11/22 15:18 01/11/22 16:19 01/11/22 16:12 01/11/22 16:19 - Physical Exam Breasts: Positive: deferred Cardiovascular: Regular rate Lungs: Positive: Clear to auscultation Abdomen: Positive: soft Vulva: both: normal Adnexa: both: normal Deep Tendon Reflex Grade: Normal +2 - Obstetrical FHR: category 1 Uterine Contraction Monitor Mode: External Cervical Dilatation: 1 Cervical Effacement Percentage: 20 station: -2 Results All other labs normal. Assessment and Plan A: CHTN at 36.3 weeks with severe range BP TOLAC P: Plan of care discussed with Dr. Perez Cervadil ripening Labetalol protocal started in triage with good response
[2022-01-11] MEDS: hydrALAZINE 20 MG/1 ML INJ IV PRN ×2 (16:33→17:41)
[2022-01-11] MEDS ORDERED: DINOPROSTONE 10 MG VAG SUPP VG SCH (18:13)
[2022-01-11 19:47] LABS: Bilirubin,Urine NEG (Negative); Blood,Urine NEG (Negative); Color,Urine Amber (Yellow)
[2022-01-11 20:00] LABS: Bacteria,Urine 1+ /HPF (Negative); Mucus,Urine 2+ /HPF
[2022-01-11 20:47] LABS: Alanine Aminotransferase 19 units/L (7-56); Uric Acid 5.3 mg/dL (3.5-7.6)
[2022-01-11] MEDS ORDERED: fentaNYL 100 MCG/2 ML INJ IV ONE (21:15)
[2022-01-11] MEDS ORDERED: ONDANSETRON 4 MG/2 ML INJ IV PRN (21:17)
[2022-01-11] MEDS ORDERED: SODIUM CHLORIDE 0.9% 1000 ML 1,000 ML IV ONE (21:18)
[2022-01-11] MEDS ORDERED: hydrALAZINE 20 MG/1 ML INJ IV PRN (21:18)
[2022-01-12] LABS: Alanine Aminotransferase 18 units/L (7-56); Albumin 3.2 g/dL (3.9-5); Blood Urea Nitrogen 3 mg/dL (7-17); Calcium 8.1 mg/dL (8.4-10.2); Hematocrit 29.6 % (30.3-42.9); Hemoglobin 9.5 gm/dl (10.1-14.3); Hemolysis Index 8; Mean Corpuscular HGB Conc 32 % (30-34); Mean Corpuscular Volume 81 fl (79-97); Platelet Count 159 K/mm3 (140-440); Red Blood Count 3.67 M/mm3 (3.65-5.03); Red Cell Distribution Width 14.5 % (13.2-15.2)
[2022-01-12 00:05] LABS: BUN/Creatinine Ratio 6
--- NOTE | 2022-01-12 00:19 | Ultrasound Report ---
ULTRASOUND OBSTETRIC LIMITED ULTRASOUND BIOPHYSICAL PROFILE INDICATION / CLINICAL INFORMATION: EFW TROY BPP. Clinical Gestational Age (GA) in weeks, days: 36, 0 TECHNIQUE: Transabdominal. COMPARISON: None available. FINDINGS: BREATHING MOVEMENT = 2 GROSS BODY MOVEMENT = 2 TONE = 2 QUALITATIVE AMNIOTIC FLUID VOLUME = 2 TOTAL BIOPHYSICAL SCORE = 8/8 HEART RATE (beats per minute): 134 AMNIOTIC FLUID INDEX (cm) = 7.5 (normal = 7-24 cm) PRESENTATION: Cephalic. ADDITIONAL FINDINGS: Estimated age by ultrasound is 33 weeks 3 days. Estimated weight is 2221 g. IMPRESSION: 1. Biophysical Score = 8/8 2. Viable intrauterine dated 33 weeks 3 days by ultrasound. This lacks clinical dates of 36 weeks. 3. Estimated weight 2221 g. 3. Borderline low amniotic fluid index measuring 7.5 cm. Signer Name: Tay Castillo MD Signed: 01/12/2022 12:14 AM Workstation Name: [id number]
[2022-01-12 00:49] LABS: Creatinine,Urine 112.7 mg/dL (0.1-20.0)
[2022-01-12] MEDS ORDERED: PENICILLIN G POTASSIUM 5 MIL.UNITS in SODIUM CHLORIDE 0.9% 50 ML IV ONE (01:18)
[2022-01-12] MEDS ORDERED: BUTALB/ACETAMINOPHEN/CAFFEINE TAB PO PRN (01:37)
[2022-01-12] MEDS ORDERED: LACTATED RINGERS 2,000 ML ONE (01:43)
[2022-01-12] MEDS ORDERED: OXYTOCIN DRIP 30 UNITS/500 ML BAG IV SCH (02:00)
[2022-01-12] MEDS ORDERED: NALOXONE 0.4 MG/1 ML INJ IV PRN (02:07)
[2022-01-12] MEDS ORDERED: ePHEDrine SULFATE 50 MG/1 ML INJ IV PRN (02:07)
--- NOTE | 2022-01-12 02:08 | Anesthesia Consultation ---
Anesthesia Consult and Med Hx Date of service: 01/12/22 - Airway Anesthetic Teeth Evaluation: Good ROM Head & Neck: Adequate Mental/Hyoid Distance: Adequate Mallampati Class: Class II Intubation Access Assessment: Good - Pulmonary Exam CTA: Yes - Cardiac Exam Cardiac Exam: RRR - Pre-Operative Health Status ASA Pre-Surgery Classification: ASA2 Proposed Anesthetic Plan: Spinal - Pulmonary Hx Smoking: No Hx Asthma: No Hx Respiratory Symptoms: No SOB: No COPD: No Hx Pneumonia: No Hx Sleep Apnea: No - Cardiovascular System Hx Hypertension: No Hx Coronary Artery Disease: No Hx Heart Attack/AMI: No Hx Angina: No Hx Percutaneous Transluminal Coronary Angioplasty (PTCA): No Hx Cardia Arrhythmia: No Hx Pacemaker: No Hx Internal Defibrillator: No Hx Valvular Heart Disease: No Hx Heart Murmur: No Hx Peripheral Vascular Disease: No - Central Nervous System Hx Neuromuscular Disorder: No Hx Seizures: No CVA: No Hx Back Pain: Yes Hx Psychiatric Problems: No - Gastrointestinal Hx Ulcer: No Hx Gastroesophageal Reflux Disease: Yes - Endocrine Hx Renal Disease: No Hx End Stage Renal Disease: No Hx Cirrhosis: No Hx Liver Disease: No (hep A and B) Hx Insulin Dependent Diabetes: No Hx Non-Insulin Dependent Diabetes: No Hx Thyroid Disease: No Hx Hypothyroidism: No Hx Hyperthyroidism: No - Hematic Hx Anemia: No Hx Sickle Cell Disease: No - Other Systems Hx Alcohol Use: No Hx Substance Use: No Hx Cancer: No Hx Obesity: Yes
--- NOTE | 2022-01-12 02:08 | Event Note ---
Date: 01/12/22 This patient's blood pressure is >160/110. The patient vomited her oral labetalol. In addition, she has a headache that is now resolved with Tylenol or IV fentanyl. Estimated 24 hour urine protein= 573 mg. As such, this patient fulfills the contemporary criteria for chronic hypertension with superimposed preeclampsia. OB ultrasound limited revealed that the estimated weight was in the 5th percentile. Umbilical artery Dopplers are within normal limits. As such, this patient fulfills the contemporary criteria for SGA fetus. Therefore, continue induction of labor. The patient never received intravaginal Cervidil. Instead, I placed a Cook's catheter transcervically and then to traction along with low-dose Pitocin is to be started for cervical ripening. Epidural as needed. Penicillin ordered for intrapartum GBS prophylaxis. Magnesium sulfate drip to be started in active labor. Labetalol IV per ACOG maternal hypertension safety bundle algorithm.
[2022-01-12] MEDS ORDERED: LACTATED RINGERS 1,000 ML ONE ×2 (02:43→11:49)
--- NOTE | 2022-01-12 03:03 | Ultrasound Report ---
UMBILICAL CORD DOPPLER: - S/D Ratio Average: 2.5 - Waveform: Normal. - Resistive Index (RI) Average: 0.6 - Waveform: Normal. - Pulsitivity Index (PI) Average: 1.0 IMPRESSION: No Doppler findings of IUGR. Signer Name: Tay Castillo MD Signed: 01/12/2022 2:58 AM Workstation Name: [id number]
[2022-01-12] MEDS: fentaNYL-BUPIV 2 MCG/ML-0.125% 200 MCG/100 ML BAG EPIDURAL SCH ×2 (03:07→10:00)
[2022-01-12] MEDS ORDERED: MAGNESIUM SULFATE 4 GM/100 ML BAG IV ONE (05:30)
[2022-01-12] MEDS ORDERED: MAGNESIUM SULFATE 40GM/1000ML 40 GM/1,000 ML BAG IV SCH (05:30)
[2022-01-12] MEDS ORDERED: MAGNESIUM SULFATE 2 GM/50 ML BAG IV ONE (05:30)
[2022-01-12] MEDS: PENICILLIN G POTASSIUM 2.5 MIL.UNITS in SODIUM CHLORIDE 0.9% 50 ML IV SCH ×2 (07:47→12:27)
[2022-01-12] MEDS ORDERED: fentaNYL 100 MCG/2 ML INJ ONE (09:41)
[2022-01-12] MEDS ORDERED: PRENATAL VIT27-FE FUMARATE-FOLIC ACID VIT TAB PO SCH (10:00)
[2022-01-12] MEDS ORDERED: BUPIVACAINE/PF (0.25%) 2.5 MG/ML 10 ML VIAL INFILTRATI ONE (10:58)
--- NOTE | 2022-01-12 11:54 | Progress Note ---
Labor Epidural - Labor Epidural Start Time: 02:30 Stop Time: 02:44 Performed by:: LANA HERRERA Procedure: Patient is requesting epidural for labor and pain. H&P, labs were reviewed. Patient IDed, all questions and concerns were answered, and consent was signed. Timeout was performed at bedside. Patient in sitting position. Sterile prep and drape was performed. 3ml of 1% lidocaine skin wheal at L[3]- L [4]. 17- gauge Tuohy epidural needle was advanced to loss of resistance with air technique cm. Negative CSF negative blood. Epidural catheter advanced to [] centimeters. [negative] Aspiration [negative] test dose. Sterile dressing applied. Patient tolerated procedure.
[2022-01-12] MEDS: LACTATED RINGERS 1,000 ML IV SCH ×2 (12:27→21:41)
--- NOTE | 2022-01-12 12:45 | Event Note ---
Date: 01/12/22 S: Feeling more pain in her back O: VE /-1, arom clear fluid, INT x 2 placed, Pit @ 4mu A: Active labor P: Expect
[2022-01-12] MEDS ORDERED: LANOLIN/ZINC/DIMETHICONE (LANSINOH) 7 GM TP PRN (14:21)
[2022-01-12] MEDS ORDERED: diphenhydrAMINE 25 MG CAP PO PRN (14:21)
[2022-01-12] MEDS ORDERED: WITCH HAZEL/ GLYCERIN PAD TP PRN (14:21)
--- NOTE | 2022-01-12 14:21 | Procedure Note ---
OB Delivery Note - Delivery Date of Delivery: 01/12/22 Surgeon: ONUR DINH Estimated blood loss: other (400) - Vaginal Delivery presentation: vertex Delivery position: OA Intrapartum events: none Delivery induction: oxytocin Delivery augmentation: rupture of membranes Delivery monitor: external FHT, external uterine, internal FHT, internal uterine Route of delivery: Delivery placenta: spontaneous Delivery cord: 3 umbilical vessels Episiotomy: none Delivery laceration: none Anesthesia: epidural Delivery comments: of a viable female on 01/12/2022@ 1408 over intact perineum. Placenta delivered 3VCI. QBL 400 cc. Mother and baby doing well. - A at 1 minute: 8 at 5 minutes: 9 Infant Gender: Female
[2022-01-12] MEDS: OXYTOCIN DRIP 30 UNITS/500 ML BAG IV SCH ×2 (16:00→17:27)
[2022-01-12] MEDS: oxyCODONE /ACETAMINOPHEN 5-325MG TAB PO PRN ×2 (16:12→22:21)
[2022-01-12] MEDS ORDERED: IBUPROFEN 800 MG TAB PO SCH (17:56)
[2022-01-12] MEDS ORDERED: hydrALAZINE 20 MG/1 ML INJ IV PRN (20:30)
[2022-01-13] MEDS ORDERED: miSOPROStol 200 MCG TAB PR ONE (01:08)
[2022-01-13] MEDS ORDERED: miSOPROStol 200 MCG TAB ONE (01:14)
[2022-01-13] MEDS ORDERED: miSOPROStol 100 MCG TAB ONE (01:15)
[2022-01-13 01:51] LABS: Hematocrit 18.8 % (30.3-42.9)
[2022-01-13] MEDS ORDERED: SODIUM CHLORIDE 0.9% 500 ML 500 ML IV ONE (02:03)
[2022-01-13] MEDS ORDERED: TRANEXAMIC ACID 1,000 MG in SODIUM CHLORIDE 0.9% 100 ML IV NR (02:15)
[2022-01-13] MEDS ORDERED: CARBOPROST TROMETHAMINE 250 MCG/1 ML INJ IM ONE (02:33)
--- NOTE | 2022-01-13 02:50 | Event Note ---
Date: 01/13/22 Called by the nurse at [facility] 1am who reports large amount of clots expressed on fundal check. Magnesium sulfate had been stopped. Cytotec 800mcg per rectum ordered. H & H sent and was 6.0/ 18.8 down from 9.5/29.6. Type and cross for 2 units of PRBC's ordered and to be transfused. I arrived at the beside and removed clots from the uterus. The anterior wall of the uterus was palpated and is intact. Hemabate 250 mcg ordered and given. 2nd IV to be initiated. BP 163/100 - pulse 87 at 0300. A: PP Hemorrhage Anemia P: Transfuse 2u PRBC's TXA ordered
[2022-01-13] MEDS ORDERED: HYDROcodone/ACETAMINOPHEN 5-325 MG TAB PO ONE (03:25)
[2022-01-13] MEDS ORDERED: LOPERAMIDE 2 MG CAP PO PRN ×2 (03:30→04:26)
[2022-01-13] MEDS: oxyCODONE /ACETAMINOPHEN 5-325MG TAB PO PRN ×2 (11:53→20:44)
[2022-01-13] MEDS: ACETAMINOPHEN 325 MG TAB PO PRN (14:16)
[2022-01-13 18:48] LABS: Basophils % (Auto) 0.3 % (0.0-1.8); Eosinophils % (Auto) 0.3 % (0.0-4.3); Hematocrit 22.8 % (30.3-42.9); Hemoglobin 7.7 gm/dl (10.1-14.3); Lymphocytes # (Auto) 1.9 K/mm3 (1.2-5.4); Lymphocytes % (Auto) 15.9 % (13.4-35.0); Mean Corpuscular HGB Conc 34 % (30-34); Mean Corpuscular Volume 84 fl (79-97); Monocytes # (Auto) 0.8 K/mm3 (0.0-0.8); Monocytes % (Auto) 6.6 % (0.0-7.3); Platelet Count 128 K/mm3 (140-440); Red Blood Count 2.72 M/mm3 (3.65-5.03)
[2022-01-13] MEDS: DOCUSATE SODIUM 100 MG CAP PO SCH (22:00)
[2022-01-14] MEDS: oxyCODONE /ACETAMINOPHEN 5-325MG TAB PO PRN ×3 (03:08→21:40)
[2022-01-14] MEDS: DOCUSATE SODIUM 100 MG CAP PO SCH ×2 (09:43→21:40)
--- NOTE | 2022-01-14 11:15 | Progress Note ---
Assessment and Plan PPD # 3 A: S/P with pp hemorhage GHTN Mild asymptomatic hypokalemia P: Continue routine pp orders Awaiting CBC D/C home within 24hrs if b/p remains stable Subjective - Subjective Date of service: 01/14/22 Principal diagnosis: s/p Patient reports: appetite normal, voiding normally, pain well controlled, ambulating normally [place]: doing well, bottle feeding Objective - Vital Signs Latest vital signs: Vital Signs Temp Pulse Resp BP BP Pulse Ox Pulse Ox 01/14/22 09:25 98.2 F 90 20 137/78 99 01/14/22 06:39 78 116/66 01/14/22 05:34 78 167/93 01/14/22 05:15 98.0 F 78 20 167/93 100 01/14/22 03:08 20 01/13/22 23:31 98.0 F 78 20 157/88 100 01/13/22 20:44 20 01/13/22 20:00 97.9 F 78 20 139/87 98 01/13/22 19:50 99 01/13/22 14:00 97.7 F 82 20 127/66 99 01/13/22 11:40 98.2 F 68 18 163/89 100 98 Intake and Output 01/13/22 01/14/22 01/14/22 22:59 06:59 14:59 Intake Total 600 120 320 Output Total 600 500 600 Balance 0 -380 -280 Intake: Oral 120 120 320 Intake, Free Water 480 Output: Urine 600 500 600 Void 600 500 600 Other: Total, Intake Amount 120 120 320 Total, Output Amount 600 500 600 # Voids Void 1 - Exam Breasts: Present: normal Abdomen: Present: normal appearance, soft Vulva: both: normal Uterus: Present: normal, firm, fundal height below umbilicus Extremities: Present: normal - Labs Labs: Abnormal lab results 01/13/22 Range/Units 18:11 WBC 11.8 H (4.5-11.0) K/mm3 RBC 2.72 L (3.65-5.03) M/mm3 Hgb 7.7 L (10.1-14.3) gm/dl Hct 22.8 L (30.3-42.9) % RDW 16.0 H (13.2-15.2) % Plt Count 128 L (140-440) K/mm3 Seg Neutrophils % 76.9 H (40.0-70.0) % Seg Neutrophils # 9.1 H (1.8-7.7) K/mm3
[2022-01-14 16:33] LABS: Basophils % (Auto) 0.2 % (0.0-1.8); Eosinophils # (Auto) 0.1 K/mm3 (0.0-0.4); Eosinophils % (Auto) 0.7 % (0.0-4.3); Hematocrit 20.5 % (30.3-42.9); Hemoglobin 6.9 gm/dl (10.1-14.3); Lymphocytes # (Auto) 1.9 K/mm3 (1.2-5.4); Lymphocytes % (Auto) 20.2 % (13.4-35.0); Mean Corpuscular HGB Conc 34 % (30-34); Mean Corpuscular Volume 84 fl (79-97); Monocytes # (Auto) 0.6 K/mm3 (0.0-0.8); Platelet Count 152 K/mm3 (140-440); Red Blood Count 2.45 M/mm3 (3.65-5.03); Red Cell Distribution Width 16.5 % (13.2-15.2)
[2022-01-14] MEDS ORDERED: hydrALAZINE 10 MG TAB PO PRN (17:22)
[2022-01-15] MEDS: oxyCODONE /ACETAMINOPHEN 5-325MG TAB PO PRN ×2 (05:05→20:02)
[2022-01-15] MEDS ORDERED: SODIUM CHLORIDE 0.9% 500 ML 500 ML IV NR (08:02)
--- NOTE | 2022-01-15 08:10 | Event Note ---
Date: 01/15/22 Pt's hgb is 6.9 and her b/p is 157/91. She denies dizziness ,sob, roth, passing clots, or any other probs. Her Fundus is firm below u with rubra lochia wnl. 1 unit of PRBCs, and a pelvic us was ordered. Labetalol was increased to 200mg TID and a repeat cbc 4 hours after her transf was also ordered after consulting with Dr Perez.
[2022-01-15] MEDS: ACETAMINOPHEN 325 MG TAB PO PRN ×2 (09:54→14:44)
[2022-01-15] MEDS: DOCUSATE SODIUM 100 MG CAP PO SCH (09:59)
[2022-01-15 11:20] LABS: Basophils # (Auto) 0.1 K/mm3 (0.0-0.1); Basophils % (Auto) 0.6 % (0.0-1.8); Eosinophils # (Auto) 0.1 K/mm3 (0.0-0.4); Eosinophils % (Auto) 1.2 % (0.0-4.3); Hematocrit 20.9 % (30.3-42.9); Hemoglobin 6.8 gm/dl (10.1-14.3); Lymphocytes # (Auto) 1.5 K/mm3 (1.2-5.4); Lymphocytes % (Auto) 16.1 % (13.4-35.0); Mean Corpuscular HGB Conc 33 % (30-34); Mean Corpuscular Volume 86 fl (79-97); Monocytes # (Auto) 0.5 K/mm3 (0.0-0.8); Platelet Count 156 K/mm3 (140-440); Red Blood Count 2.44 M/mm3 (3.65-5.03); Red Cell Distribution Width 16.6 % (13.2-15.2)
--- NOTE | 2022-01-15 14:14 | Progress Note ---
Assessment and Plan PPD#3 with severe anemia, now getting the 3rd unit of PRBC since her delivery 3days ago. Severe preeclampsia based on current BP 1. Will give IV labetalol per protocol, pt has received 20mg, will give Iv 40 and the 80 per protocol and then IV hydrallazine; will transfer to labor and delivery when transfusion complete for mag sulfate for seizure prophylaxis 2. Will check cmp, uric acid and LDH now 3. Will also give broad spectrum abx to treate current endomyometritis 4. Plan of care discussed with nurse and pt. All questions encouraged and answered Subjective Date of service: 01/15/22 Principal diagnosis: PPD#3, with severe preeclampsia PP and severe anemia Interval history: Pt denies headache however BP 170/110's, maternal tacchycardia and pt states she does not feel well. Hgb 6.9 yesterday and repeat now 6.8. U/S for retained products prelim report with no Retained POC seen. Objective - Constitutional Vitals: Vital Signs - 12hr 01/15/22 01/15/22 01/15/22 02:25 03:40 05:00 Temperature Pulse Rate Respiratory Rate Blood Pressure Blood Pressure 157/91 [Right] O2 Sat by Pulse Oximetry O2 Sat by Pulse 98 98 Oximetry [ Anterior Bilateral Throughout] 01/15/22 01/15/22 01/15/22 05:05 07:45 07:54 Temperature Pulse Rate 74 Respiratory 20 Rate Blood Pressure 98/63 Blood Pressure [Right] O2 Sat by Pulse 97 Oximetry O2 Sat by Pulse 98 98 Oximetry [ Anterior Bilateral Throughout] 01/15/22 01/15/22 01/15/22 07:58 09:54 10:37 Temperature 98.1 F Pulse Rate 74 90 94 H Respiratory 16 Rate Blood Pressure 172/102 174/103 Blood Pressure 165/89 [Right] O2 Sat by Pulse 100 Oximetry O2 Sat by Pulse Oximetry [ Anterior Bilateral Throughout] 01/15/22 01/15/22 01/15/22 12:07 12:22 12:52 Temperature 98.6 F 98.3 F 98.5 F Pulse Rate 83 80 72 Respiratory 16 20 18 Rate Blood Pressure 167/107 161/97 163/99 Blood Pressure [Right] O2 Sat by Pulse 100 100 100 Oximetry O2 Sat by Pulse Oximetry [ Anterior Bilateral Throughout] 01/15/22 01/15/22 01/15/22 13:22 13:52 14:07 Temperature 98.8 F 98.2 F Pulse Rate 76 113 H 80 Respiratory 18 20 Rate Blood Pressure 170/98 165/104 165/104 Blood Pressure [Right] O2 Sat by Pulse 100 100 Oximetry O2 Sat by Pulse Oximetry [ Anterior Bilateral Throughout] General appearance: Present: mild distress - Neck Neck: normal ROM - Respiratory Respiratory effort: normal - Breasts Breasts: deferred - Cardiovascular Rhythm: other (maternal tacchycardia) Extremities: No edema - Gastrointestinal General gastrointestinal: Present: soft, non-distended - Genitourinary Female genitourinary: other (Fundus with tenderness, bimanual with cervix finger tip and firm, lochia small) - Integumentary Integumentary: warm, dry - Neurologic Neurologic: moves all extremities - Psychiatric Psychiatric: cooperative - Labs CBC & Chem 7: 01/15/22 10:52 01/11/22 23:15 Labs: Abnormal lab results 01/11/22 01/14/22 01/15/22 Range/Units 16:30 16:18 09:18 RBC 2.45 L (3.65-5.03) M/mm3 Hgb 6.9 L (10.1-14.3) gm/dl Hct 20.5 L (30.3-42.9) % RDW 16.5 H (13.2-15.2) % Seg Neutrophils % 72.9 H (40.0-70.0) % Crossmatch See Detail See Detail 01/15/22 Range/Units 10:52 RBC 2.44 L (3.65-5.03) M/mm3 Hgb 6.8 L (10.1-14.3) gm/dl Hct 20.9 L (30.3-42.9) % RDW 16.6 H (13.2-15.2) % Seg Neutrophils % 77.1 H (40.0-70.0) % Crossmatch Medications & Allergies - Medications Allergies/Adverse Reactions: Allergies No Known Allergies Allergy (Verified 10/02/19 19:13) Home Medications: Home Medications Medication Instructions Recorded Confirmed Last Taken Type Multivitamin Tablet 1 tab PO DAILY 01/05/22 01/05/22 01/04/22 History labetaloL [Labetalol 100mg TAB] 100 mg PO BID #60 tab 01/05/22 Unknown Rx Active Medications: Generic Name Dose Route Start Last Admin Trade Name Freq PRN Reason Stop Dose Admin Acetaminophen 650 mg 01/12/22 14:21 01/15/22 09:54 Acetaminophen 325 Mg Tab PO 650 mg Q4H PRN Administration Pain MILD(1-3)/Fever >100.5/RIZO Diphenhydramine HCl 25 mg 01/12/22 14:21 Diphenhydramine 25 Mg Cap PO Q6H PRN Itching Docusate Sodium 100 mg 01/13/22 22:00 01/15/22 09:59 Docusate Sodium 100 Mg Cap PO 100 mg BID MICHELET Administration Hydralazine HCl 10 mg 01/14/22 17:22 01/14/22 17:40 Hydralazine 10 Mg Tab PO 10 mg Q4H PRN Administration Hypertension Magnesium Sulfate 40 gm in 1,000 mls @ 50 mls/hr 01/12/22 05:30 01/12/22 16:21 Magnesium Sulfate 40gm/1000ml IV 2 gm/hr DIRECT MICHELET 50 mls/hr Administration 2 GM/HR Oxytocin/Sodium Chloride 30 units in 500 mls @ 40 mls/hr 01/12/22 18:00 01/12/22 17:27 Pitocin/Ns 30 Unit/500ml IV 75 ml/hr TITR MIC[facility] 75 mls/hr Administration Protocol Sodium Chloride 500 mls @ 0 mls/hr 01/15/22 08:02 Nacl 0.9% 500 Ml IV 01/15/22 20:00 ONCE NR As Directed Labetalol HCl 200 mg 01/15/22 14:00 01/15/22 14:07 Labetalol 200 Mg Tab PO 200 mg Q8HR [facility] Administration Labetalol HCl 40 mg 01/15/22 14:06 Labetalol 20 Mg/4 Ml Inj IV 01/15/22 14:07 ONCE ONE Loperamide HCl 2 mg 01/13/22 04:26 Loperamide 2 Mg Cap PO Q2H PRN Diarrhea Multi-Ingredient Ointment 1 applic 01/12/22 14:21 Lanolin/Zinc/Dimethicone (Lansinoh) 7 Gm TP PRN PRN Sore Nipples Oxycodone/Acetaminophen 1 tab 01/12/22 14:21 01/15/22 05:05 Oxycodone /Acetaminophen 5-325mg Tab PO 1 tab Q6H PRN Administration Pain, Moderate (4-6) Sodium Chloride 10 ml 01/12/22 15:00 Sodium Chloride 0.9% 10 Ml Flush Syringe IV PRN [facility] Witch Fe/Glycerin 1 each 01/12/22 14:21 Witch Fe/ Glycerin Pad TP PRN PRN Hemorrhoid/cleansing/soothing
[2022-01-15] MEDS ORDERED: MAGNESIUM SULFATE 40GM/1000ML 40 GM/1,000 ML BAG IV SCH (15:00)
[2022-01-15] MEDS ORDERED: MAGNESIUM SULFATE 4 GM/100 ML BAG IV ONE ×2 (16:09→18:11)
[2022-01-15] MEDS ORDERED: LACTATED RINGERS 1,000 ML ONE (16:12)
[2022-01-15] MEDS: AMPICILLIN/NS 2 GM/100 ML 2 GM/100 ML BAG IV SCH ×2 (17:01→21:37)
[2022-01-15] MEDS ORDERED: LACTATED RINGERS 1,000 ML IV SCH (18:11)
[2022-01-15] MEDS ORDERED: LIDOCAINE (2%) 20 MG/1 ML VIAL 20 ML MDV INFILTRATI ONE ×2 (18:32→18:39)
[2022-01-15] MEDS ORDERED: OXYTOCIN 10 UNIT/1 ML INJ ONE (18:33)
[2022-01-15 19:04] LABS: Basophils % (Auto) 0.2 % (0.0-1.8); Eosinophils # (Auto) 0.1 K/mm3 (0.0-0.4); Eosinophils % (Auto) 1.1 % (0.0-4.3); Hemoglobin 7.3 gm/dl (10.1-14.3); Lymphocytes # (Auto) 1.1 K/mm3 (1.2-5.4); Lymphocytes % (Auto) 12.3 % (13.4-35.0); Mean Corpuscular HGB Conc 33 % (30-34); Mean Corpuscular Volume 86 fl (79-97); Monocytes # (Auto) 0.3 K/mm3 (0.0-0.8); Monocytes % (Auto) 4.1 % (0.0-7.3); Platelet Count 142 K/mm3 (140-440); Red Blood Count 2.55 M/mm3 (3.65-5.03); Red Cell Distribution Width 16.6 % (13.2-15.2)
[2022-01-15] MEDS: hydrALAZINE 20 MG/1 ML INJ IV PRN ×2 (19:06→19:21)
[2022-01-15] MEDS: GENTAMICIN 350 MG in SODIUM CHLORIDE 0.9% 100 ML IV SCH (19:22)
[2022-01-15 19:56] LABS: Alanine Aminotransferase 35 units/L (7-56); Albumin 2.8 g/dL (3.9-5); Blood Urea Nitrogen 3 mg/dL (7-17); Hemolysis Index 6; Uric Acid 5.6 mg/dL (3.5-7.6)
[2022-01-15 20:03] LABS: BUN/Creatinine Ratio 5
[2022-01-16] MEDS: NIFEdipine XL 90 MG TAB PO SCH ×2 (00:05→10:50)
[2022-01-16 01:03] LABS: Bilirubin,Urine NEG (Negative); Blood,Urine LG (Negative); Color,Urine Colorless (Yellow); Protein,Urine <15 mg/dL mg/dL (Negative); Urobilinogen,Urine < 2.0 mg/dL (<2.0)
[2022-01-16 01:09] LABS: Mucus,Urine FEW /HPF
[2022-01-16 01:32] LABS: Creatinine,Urine 18.1 mg/dL (0.1-20.0)
--- NOTE | 2022-01-16 02:04 | Event Note ---
Date: 01/16/22 I was called to see patient has blood pressure = 201/105. Intravenous antihypertensive medications were given in the following sequence per ACOG Maternal Safety Bundle for HTN: 1.) Labetalol 20 mg 2.) Labetalol 40 mg 3.) Labetalol 80 mg 4.) Hydralazine 10 mg 5.) Hydralazine 10 mg 6.) Labetalol 80 mg 7.) Labetalol 80 mg At that time, blood pressure >=160/110. Procardia XL 90 mg p.o. daily was prescribed per her pregestational regimen. Urine Protein to Creatinine Ratio (UPCR) =0.33. There is significant proteinuria. Estimated 24 hour urine protein= 395 mg As such, this patient has preeclampsia with severe features. Magnesium being infused intravenously at this time, and it should continue until tomorrow morning for a total of 24 hours of magnesium infusion. Despite aggressive IV antihypertensive medication, blood pressure is still >=160/110. Therefore, transfer to [facility] and consult Hospital Medicine service for management of hypertension per ACOG Maternal Safety Bundle for HTN as this patient may need an antihypertensive drip.
[2022-01-16] MEDS: AMPICILLIN/NS 2 GM/100 ML 2 GM/100 ML BAG IV SCH ×4 (03:55→21:13)
[2022-01-16] MEDS: DOCUSATE SODIUM 100 MG CAP PO SCH ×3 (04:13→21:16)
--- NOTE | 2022-01-16 12:40 | Consultation ---
History of Present Illness - Reason for Consult Consult date: 01/16/22 HTN Requesting physician: RODRICK CORMIER - History of Present Illness 31 Y/O with Hx of PIH presents to Labor and delivery from the office with severe range blood pressures 170/110 today. She was admitted to the hospital last week and was started on Labetalol 100mg po bid and was given betamethasone and then discharged home. She has a hx of a with her last baby and desires TOLAC. labetalol oral med adjusted upwards to every 8hrs and will continue to adjust if BP not controlled. Original Note: Assessment and Plan PPD#3 with severe anemia, now getting the 3rd unit of PRBC since her delivery 3days ago. Severe preeclampsia based on current BP 1. Will give IV labetalol per protocol, pt has received 20mg, will give Iv 40 and the 80 per protocol and then IV hydrallazine; will transfer to labor and delivery when transfusion complete for mag sulfate for seizure prophylaxis 2. Will check cmp, uric acid and LDH now 3. Will also give broad spectrum abx to treate current endomyometritis 4. Plan of care discussed with nurse and pt. All questions encouraged and answered Subjective Date of service: 01/15/22 Principal diagnosis: PPD#3, with severe preeclampsia PP and severe anemia Interval history: Pt denies headache however BP 170/110's, maternal tacchycardia and pt states she does not feel well. Hgb 6.9 yesterday and repeat now 6.8. U/S for retained products prelim report with no Retained POC seen. Objective At that time, blood pressure >=160/110. Procardia XL 90 mg p.o. daily was prescribed per her pregestational regimen. Urine Protein to Creatinine Ratio (UPCR) =0.33. There is significant proteinuria. Estimated 24 hour urine protein= 395 mg As such, this patient has preeclampsia with severe features. Magnesium being infused intravenously at this time, and it should continue until tomorrow morning for a total of 24 hours of magnesium infusion. Despite aggressive IV antihypertensive medication, blood pressure is still >=160/110. Therefore, transfer to [facility] and consult Hospital Medicine service for management of hypertension per ACOG Maternal Safety Bundle for HTN as this patient may need an antihypertensive drip. Past History Past Medical History: hypertension, hyperlipidemia Past Surgical History: cholecystectomy, Social history: no significant social history Family history: no significant family history Medications and Allergies Allergies Allergy/AdvReac Type Severity Reaction Status Date / Time No Known Allergies Allergy Verified 10/02/19 19:13 Home Medications Medication Instructions Recorded Confirmed Last Taken Type Multivitamin Tablet 1 tab PO DAILY 01/05/22 01/05/22 01/04/22 History labetaloL [Labetalol 100mg TAB] 100 mg PO BID #60 tab 01/05/22 Unknown Rx Active Meds: Active Medications Acetaminophen (Acetaminophen 325 Mg Tab) 650 mg PO Q4H PRN PRN Reason: Pain MILD(1-3)/Fever >100.5/RIZO Last Admin: 01/15/22 14:44 Dose: 650 mg Docusate Sodium (Docusate Sodium 100 Mg Cap) 100 mg PO BID MICHELET Last Admin: 01/16/22 10:50 Dose: 100 mg Ampicillin Sodium (Ampicillin/Ns 2 Gm/100 Ml) 2 gm in 100 mls @ 100 mls/hr IV Q6H [facility]; Protocol Stop: 01/16/22 21:59 Last Admin: 01/16/22 10:50 Dose: 100 mls/hr Gentamicin Sulfate 350 mg/ (Sodium Chloride) 108.75 mls @ 200 mls/hr IV Q24H [facility]; Protocol Stop: 01/16/22 14:48 Last Admin: 01/15/22 19:22 Dose: 200 mls/hr Clindamycin HCl (Cleocin 900 Mg/50 Ml) 900 mg in 50 mls @ 100 mls/hr IV Q8H [facility]; Protocol Stop: 01/16/22 15:29 Last Admin: 01/16/22 06:50 Dose: 100 mls/hr Magnesium Sulfate (Magnesium Sulfate 40gm/1000ml) 40 gm in 1,000 mls @ 50 mls/hr IV DIRECT MICHELET Last Admin: 01/15/22 17:00 Dose: 2 gm/hr, 50 mls/hr Lactated Ringer's (Lactated Ringers) 1,000 mls @ 125 mls/hr IV DIRECT MICHELET Last Admin: 01/16/22 03:59 Dose: 75 mls/hr Multi-Ingredient Ointment (Lanolin/Zinc/Dimethicone (Lansinoh) 7 Gm) 1 applic TP PRN PRN PRN Reason: Sore Nipples Nifedipine (Nifedipine Xl 90 Mg Tab) 90 mg PO QDAY [facility] Last Admin: 01/16/22 10:50 Dose: 90 mg Oxycodone/Acetaminophen (Oxycodone /Acetaminophen 5-325mg Tab) 1 tab PO Q6H PRN PRN Reason: Pain, Moderate (4-6) Last Admin: 01/15/22 20:02 Dose: 1 tab Sodium Chloride (Sodium Chloride 0.9% 10 Ml Flush Syringe) 10 ml IV PRN [facility] Witch Fe/Glycerin (Witch Fe/ Glycerin Pad) 1 each TP PRN PRN PRN Reason: Hemorrhoid/cleansing/soothing Review of Systems All systems: negative Exam - Physical Exam Narrative exam: VITAL SIGNS: Reviewed. GENERAL: The patient appears normally developed, patient seen and ambulating family at bedside. Vital signs as documented. HEAD: No signs of head trauma. EYES: Pupils are equal. Extraocular motions intact. EARS: Hearing grossly intact. MOUTH: Oropharynx is normal. NECK: No adenopathy, no JVD. CHEST: Chest with clear breath sounds bilaterally. No wheezes, rales, or rhon chi. CARDIAC: Regular rate and rhythm. S1 and S2, without murmurs, gallops, or rubs. VASCULAR: No Edema. Peripheral pulses normal and equal in all extremities. ABDOMEN: Soft, non tender and non distended. No rebound or guarding, and no masses palpated. Bowel Sounds normal. MUSCULOSKELETAL: Good range of motion of all major joints. Extremities without clubbing, cyanosis or edema. NEUROLOGIC EXAM: Alert and oriented x 3 No focal sensory or strength deficits. Speech normal. Follows commands. PSYCHIATRIC: Mood normal. SKIN: detail exam as documented in skin assessment - Constitutional Vitals: Temp Pulse Resp BP Pulse Ox 97.8 F 95 H 15 142/93 98 01/16/22 09:12 01/16/22 11:00 01/16/22 11:00 01/16/22 11:00 01/16/22 11:00 Results - Labs CBC & Chem 7: 01/15/22 17:51 01/15/22 17:51 Labs: Abnormal lab results 01/15/22 01/15/22 01/15/22 Range/Units 09:18 17:51 17:51 RBC 2.55 L (3.65-5.03) M/mm3 Hgb 7.3 L (10.1-14.3) gm/dl Hct 22.0 L (30.3-42.9) % RDW 16.6 H (13.2-15.2) % Lymph % (Auto) 12.3 L (13.4-35.0) % Lymph # (Auto) 1.1 L (1.2-5.4) K/mm3 Seg Neutrophils % 82.3 H (40.0-70.0) % Potassium 3.5 L (3.6-5.0) mmol/L Chloride 108.0 H (98-107) mmol/L BUN 3 L (7-17) mg/dL Calcium 8.0 L (8.4-10.2) mg/dL Magnesium (1.7-2.3) mg/dL Lactate Dehydrogenase 389 H (91-180) units/L Total Protein 4.9 L (6.3-8.2) g/dL Albumin 2.8 L (3.9-5) g/dL Crossmatch See Detail 01/16/22 Range/Units 01:06 RBC (3.65-5.03) M/mm3 Hgb (10.1-14.3) gm/dl Hct (30.3-42.9) % RDW (13.2-15.2) % Lymph % (Auto) (13.4-35.0) % Lymph # (Auto) (1.2-5.4) K/mm3 Seg Neutrophils % (40.0-70.0) % Potassium (3.6-5.0) mmol/L Chloride (98-107) mmol/L BUN (7-17) mg/dL Calcium (8.4-10.2) mg/dL Magnesium 4.40 H (1.7-2.3) mg/dL Lactate Dehydrogenase (91-180) units/L Total Protein (6.3-8.2) g/dL Albumin (3.9-5) g/dL Crossmatch Assessment and Plan ANEMIA HTN HYPOKALEMIA
[2022-01-16] MEDS ORDERED: POTASSIUM CHLORIDE ER 20 MEQ TAB PO SCH (13:55)
--- NOTE | 2022-01-16 14:03 | Consultation ---
History of Present Illness - Reason for Consult Consult date: 01/16/22 Hypertensive urgency Requesting physician: RODRICK CORMIER - History of Present Illness Patient is a 31-year-old female with history of PIH who presented with severe hypertension of 170/110 to the hospital was admitted and is currently postop day 4 with severe preeclampsia and severe anemia. Patient early hours of this morning was noted to have severe blood pressure with tachycardia and sense of ill feeling. Her blood pressure was noted to be severely elevated as a result was transferred to the ICU IMCU for further management. She had been on Procardia XL 90 mg daily and despite this blood pressure was still greater than 160/110. Patient was also considered to have preeclampsia and started on magnesium which was infusing. He was she was subsequently treated with IV labetalol according to ACOG maternal hypertension bundle. This morning on reevaluation the patient's blood pressure is down to 140 systolic She is ambulating denies any chest pain nausea vomiting or diarrhea at this time. Past History Past Medical History: hypertension, hyperlipidemia Past Surgical History: cholecystectomy, Social history: no significant social history Family history: no significant family history Medications and Allergies Allergies Allergy/AdvReac Type Severity Reaction Status Date / Time No Known Allergies Allergy Verified 10/02/19 19:13 Home Medications Medication Instructions Recorded Confirmed Last Taken Type Multivitamin Tablet 1 tab PO DAILY 01/05/22 01/05/22 01/04/22 History labetaloL [Labetalol 100mg TAB] 100 mg PO BID #60 tab 01/05/22 Unknown Rx Active Meds: Active Medications Acetaminophen (Acetaminophen 325 Mg Tab) 650 mg PO Q4H PRN PRN Reason: Pain MILD(1-3)/Fever >100.5/RIZO Last Admin: 01/15/22 14:44 Dose: 650 mg Docusate Sodium (Docusate Sodium 100 Mg Cap) 100 mg PO BID [facility] Last Admin: 01/16/22 10:50 Dose: 100 mg Ampicillin Sodium (Ampicillin/Ns 2 Gm/100 Ml) 2 gm in 100 mls @ 100 mls/hr IV Q6H [facility]; Protocol Stop: 01/16/22 21:59 Last Admin: 01/16/22 10:50 Dose: 100 mls/hr Gentamicin Sulfate 350 mg/ (Sodium Chloride) 108.75 mls @ 200 mls/hr IV Q24H [facility]; Protocol Stop: 01/16/22 14:48 Last Admin: 01/15/22 19:22 Dose: 200 mls/hr Clindamycin HCl (Cleocin 900 Mg/50 Ml) 900 mg in 50 mls @ 100 mls/hr IV Q8H [facility]; Protocol Stop: 01/16/22 15:29 Last Admin: 01/16/22 06:50 Dose: 100 mls/hr Magnesium Sulfate (Magnesium Sulfate 40gm/1000ml) 40 gm in 1,000 mls @ 50 mls/h r IV DIRECT MICHELET Last Admin: 01/15/22 17:00 Dose: 2 gm/hr, 50 mls/hr Lactated Ringer's (Lactated Ringers) 1,000 mls @ 125 mls/hr IV DIRECT [facility] Last Admin: 01/16/22 03:59 Dose: 75 mls/hr Labetalol HCl (Labetalol 100 Mg Tab) 100 mg PO BID [facility] Multi-Ingredient Ointment (Lanolin/Zinc/Dimethicone (Lansinoh) 7 Gm) 1 applic TP PRN PRN PRN Reason: Sore Nipples Nifedipine (Nifedipine Xl 90 Mg Tab) 90 mg PO QDAY [facility] Last Admin: 01/16/22 10:50 Dose: 90 mg Oxycodone/Acetaminophen (Oxycodone /Acetaminophen 5-325mg Tab) 1 tab PO Q6H PRN PRN Reason: Pain, Moderate (4-6) Last Admin: 01/15/22 20:02 Dose: 1 tab Potassium Chloride (Potassium Chloride Er 20 Meq Tab) 40 meq PO ONCE ONE Stop: 01/16/22 13:56 Sodium Chloride (Sodium Chloride 0.9% 10 Ml Flush Syringe) 10 ml IV PRN [facility] Witch Fe/Glycerin (Witch Fe/ Glycerin Pad) 1 each TP PRN PRN PRN Reason: Hemorrhoid/cleansing/soothing Review of Systems All systems: negative Constitutional: no malaise, no lethargy Neurological: no head injury, no paralysis, no weakness, no parathesias, no numbness, no seizures, no headaches, no memory loss Exam - Physical Exam Narrative exam: VITAL SIGNS: Reviewed. GENERAL: The patient appears normally developed, patient seen and ambulating family at bedside. Vital signs as documented. HEAD: No signs of head trauma. EYES: Pupils are equal. Extraocular motions intact. EARS: Hearing grossly intact. MOUTH: Oropharynx is normal. NECK: No adenopathy, no JVD. CHEST: Chest with clear breath sounds bilaterally. No wheezes, rales, or rhonchi. CARDIAC: Regular rate and rhythm. S1 and S2, without murmurs, gallops, or rubs. VASCULAR: No Edema. Peripheral pulses normal and equal in all extremities. ABDOMEN: Soft, non tender and non distended. No rebound or guarding, and no masses palpated. Bowel Sounds normal. MUSCULOSKELETAL: Good range of motion of all major joints. Extremities without clubbing, cyanosis or edema. NEUROLOGIC EXAM: Alert and oriented x 3 No focal sensory or strength deficits. Speech normal. Follows commands. PSYCHIATRIC: Mood normal. SKIN: detail exam as documented in skin assessment - Constitutional Vitals: Temp Pulse Resp BP Pulse Ox 97.8 F 95 H 15 142/93 98 01/16/22 09:12 01/16/22 11:00 01/16/22 11:00 01/16/22 11:00 01/16/22 11:00 Results - Labs CBC & Chem 7: 01/15/22 17:51 01/15/22 17:51 Labs: Abnormal lab results 01/15/22 01/15/22 01/15/22 Range/Units 09:18 17:51 17:51 RBC 2.55 L (3.65-5.03) M/mm3 Hgb 7.3 L (10.1-14.3) gm/dl Hct 22.0 L (30.3-42.9) % RDW 16.6 H (13.2-15.2) % Lymph % (Auto) 12.3 L (13.4-35.0) % Lymph # (Auto) 1.1 L (1.2-5.4) K/mm3 Seg Neutrophils % 82.3 H (40.0-70.0) % Potassium 3.5 L (3.6-5.0) mmol/L Chloride 108.0 H (98-107) mmol/L BUN 3 L (7-17) mg/dL Calcium 8.0 L (8.4-10.2) mg/dL Magnesium (1.7-2.3) mg/dL Lactate Dehydrogenase 389 H (91-180) units/L Total Protein 4.9 L (6.3-8.2) g/dL Albumin 2.8 L (3.9-5) g/dL Crossmatch See Detail 01/16/22 Range/Units 01:06 RBC (3.65-5.03) M/mm3 Hgb (10.1-14.3) gm/dl Hct (30.3-42.9) % RDW (13.2-15.2) % Lymph % (Auto) (13.4-35.0) % Lymph # (Auto) (1.2-5.4) K/mm3 Seg Neutrophils % (40.0-70.0) % Potassium (3.6-5.0) mmol/L Chloride (98-107) mmol/L BUN (7-17) mg/dL Calcium (8.4-10.2) mg/dL Magnesium 4.40 H (1.7-2.3) mg/dL Lactate Dehydrogenase (91-180) units/L Total Protein (6.3-8.2) g/dL Albumin (3.9-5) g/dL Crossmatch Assessment and Plan Patient is a 31-year-old female with history of PIH who presented with severe hypertension of 170/110 to the hospital was admitted and is currently postop day 4 with severe preeclampsia and severe anemia. Patient early hours of this morning was noted to have severe blood pressure with tachycardia and sense of ill feeling. Her blood pressure was noted to be severely elevated as a result was transferred to the ICU IM for further management. She had been on Procardia XL 90 mg daily and despite this blood pressure was still greater than 160/110. Patient was also considered to have preeclampsia and started on magnesium which was infusing. He was she was subsequently treated with IV labetalol according to ACOG maternal hypertension bundle. This morning on reevaluation the patient's blood pressure is down to 140 systolic She is ambulating denies any chest pain nausea vomiting or diarrhea at this time. day 4 Post gestational preeclampsia Hypertensive urgency now resolved ANEMIA HYPOKALEMIA PLAN Agree with continued PROCARDIA Will resume patients home dose of Labetalol Complete Magnesium infusion Agree with transfer back to Mother baby unit Will replace K Will follow with you to ensure BP states well controlled. THANK YOU for allowing us take part in the care of your patient Plan discussed with the patient in detail
[2022-01-16 14:21] LABS: Alanine Aminotransferase 63 units/L (7-56); Albumin 3.4 g/dL (3.9-5); Blood Urea Nitrogen 3 mg/dL (7-17); Calcium 7.9 mg/dL (8.4-10.2); Hemolysis Index 0
[2022-01-16 14:24] LABS: Basophils % (Auto) 0.2 % (0.0-1.8); Eosinophils # (Auto) 0.1 K/mm3 (0.0-0.4); Eosinophils % (Auto) 1.1 % (0.0-4.3); Hematocrit 29.6 % (30.3-42.9); Hemoglobin 9.9 gm/dl (10.1-14.3); Lymphocytes # (Auto) 1.2 K/mm3 (1.2-5.4); Lymphocytes % (Auto) 13.8 % (13.4-35.0); Mean Corpuscular HGB Conc 34 % (30-34); Mean Corpuscular Volume 85 fl (79-97); Monocytes # (Auto) 0.3 K/mm3 (0.0-0.8); Monocytes % (Auto) 4.1 % (0.0-7.3); Platelet Count 193 K/mm3 (140-440); Red Blood Count 3.49 M/mm3 (3.65-5.03); Red Cell Distribution Width 17.3 % (13.2-15.2)
[2022-01-16 14:44] LABS: BUN/Creatinine Ratio 6
[2022-01-16] MEDS: oxyCODONE /ACETAMINOPHEN 5-325MG TAB PO PRN (16:05)
--- NOTE | 2022-01-16 17:33 | Progress Note ---
Assessment and Plan PPD#4 with preeclampsia, slightly elevated LFT's, refractory HTN much improved with calcium channel bridger; Asymptomatic anemia with s/p PRBC x3 units total this admission. Evaluated in Med ICU earlier today and transferred back to floor; 1. appreciate Med ICU team and Will continue procard XL 90 daily and decreased dose per ICU orders of labetalol now 100mg bid and pt agrees 2. Will repeat cmp in am for LFT trends 3. Will consider discharge home tomorrow, if BP stable 4. complete IV antibiotics for endomyometritis today All questions encouraged and answered Subjective Date of service: 01/16/22 Principal diagnosis: PPD#4, , PreE. PP, refrac HTN, PPH w/PRBC x3; endomyometritis Interval history: pt states that she feels much better. Pt continues to deny headache and now voiding a lot of urine. Pt denies chest pain. Denies pelvic pain and vag bleed is like a period now and darker color. Objective - Constitutional Vitals: Vital Signs - 12hr 01/16/22 01/16/22 01/16/22 05:30 06:00 06:30 Temperature Pulse Rate 95 H 106 H 108 H Pulse Rate [ From Monitor] Respiratory 16 19 18 Rate Blood Pressure 149/94 131/80 122/74 Blood Pressure [Left] O2 Sat by Pulse 97 94 97 Oximetry O2 Sat by Pulse Oximetry [ Anterior Bilateral Throughout] 01/16/22 01/16/22 01/16/22 07:00 07:30 08:00 Temperature Pulse Rate 103 H 107 H 98 H Pulse Rate [ From Monitor] Respiratory 17 22 16 Rate Blood Pressure 131/79 128/81 130/77 Blood Pressure [Left] O2 Sat by Pulse 94 94 94 Oximetry O2 Sat by Pulse Oximetry [ Anterior Bilateral Throughout] 01/16/22 01/16/22 01/16/22 08:30 08:43 09:00 Temperature Pulse Rate 98 H 98 H Pulse Rate [ 85 From Monitor] Respiratory 16 18 15 Rate Blood Pressure 131/83 132/83 Blood Pressure [Left] O2 Sat by Pulse 98 100 95 Oximetry O2 Sat by Pulse Oximetry [ Anterior Bilateral Throughout] 01/16/22 01/16/22 01/16/22 09:12 09:30 10:00 Temperature 97.8 F Pulse Rate 97 H 93 H Pulse Rate [ From Monitor] Respiratory 17 15 Rate Blood Pressure 131/81 128/80 Blood Pressure [Left] O2 Sat by Pulse 96 96 Oximetry O2 Sat by Pulse Oximetry [ Anterior Bilateral Throughout] 01/16/22 01/16/22 01/16/22 10:30 10:38 11:00 Temperature Pulse Rate 88 86 95 H Pulse Rate [ From Monitor] Respiratory 16 15 Rate Blood Pressure 134/83 142/93 Blood Pressure [Left] O2 Sat by Pulse 95 98 Oximetry O2 Sat by Pulse Oximetry [ Anterior Bilateral Throughout] 01/16/22 01/16/22 01/16/22 11:22 11:30 12:01 Temperature Pulse Rate 95 H 115 H Pulse Rate [ 86 From Monitor] Respiratory 18 19 16 Rate Blood Pressure 142/91 142/91 Blood Pressure [Left] O2 Sat by Pulse 100 97 97 Oximetry O2 Sat by Pulse Oximetry [ Anterior Bilateral Throughout] 01/16/22 01/16/22 01/16/22 12:30 13:00 13:30 Temperature 97.6 F Pulse Rate 97 H 97 H 93 H Pulse Rate [ From Monitor] Respiratory 20 14 14 Rate Blood Pressure 136/85 134/87 132/87 Blood Pressure [Left] O2 Sat by Pulse 97 98 96 Oximetry O2 Sat by Pulse Oximetry [ Anterior Bilateral Throughout] 01/16/22 01/16/22 01/16/22 14:00 14:30 15:00 Temperature Pulse Rate 101 H 96 H 95 H Pulse Rate [ From Monitor] Respiratory 19 21 13 Rate Blood Pressure 139/88 138/87 134/89 Blood Pressure [Left] O2 Sat by Pulse 98 97 100 Oximetry O2 Sat by Pulse Oximetry [ Anterior Bilateral Throughout] 01/16/22 01/16/22 16:00 16:17 Temperature 99.1 F Pulse Rate 101 H Pulse Rate [ From Monitor] Respiratory 18 Rate Blood Pressure Blood Pressure 144/90 [Left] O2 Sat by Pulse 99 Oximetry O2 Sat by Pulse 98 Oximetry [ Anterior Bilateral Throughout] General appearance: Present: no acute distress - Neck Neck: normal ROM - Respiratory Respiratory effort: normal - Cardiovascular Rhythm: regular Extremities: No edema - Gastrointestinal General gastrointestinal: Present: soft, non-tender - Genitourinary Female genitourinary: other (fundus 2cm below umbilicus and no tenderness at this time. Lochia dark red and normal color) - Integumentary Integumentary: warm, dry - Neurologic Neurologic: moves all extremities - Psychiatric Psychiatric: cooperative - Labs CBC & Chem 7: 01/16/22 13:37 01/16/22 13:37 Labs: Abnormal lab results 01/15/22 01/15/22 01/16/22 Range/Units 17:51 17:51 01:06 RBC 2.55 L (3.65-5.03) M/mm3 Hgb 7.3 L (10.1-14.3) gm/dl Hct 22.0 L (30.3-42.9) % RDW 16.6 H (13.2-15.2) % Lymph % (Auto) 12.3 L (13.4-35.0) % Lymph # (Auto) 1.1 L (1.2-5.4) K/mm3 Seg Neutrophils % 82.3 H (40.0-70.0) % Potassium 3.5 L (3.6-5.0) mmol/L Chloride 108.0 H (98-107) mmol/L BUN 3 L (7-17) mg/dL Creatinine (0.6-1.2) mg/dL Glucose (65-100) mg/dL Calcium 8.0 L (8.4-10.2) mg/dL Magnesium 4.40 H (1.7-2.3) mg/dL AST (5-40) units/L ALT (7-56) units/L Alkaline Phosphatase (35-129) units/L Lactate Dehydrogenase 389 H (91-180) units/L Total Protein 4.9 L (6.3-8.2) g/dL Albumin 2.8 L (3.9-5) g/dL 01/16/22 01/16/22 Range/Units 13:37 13:37 RBC 3.49 L (3.65-5.03) M/mm3 Hgb 9.9 L (10.1-14.3) gm/dl Hct 29.6 L D (30.3-42.9) % RDW 17.3 H (13.2-15.2) % Lymph % (Auto) (13.4-35.0) % Lymph # (Auto) (1.2-5.4) K/mm3 Seg Neutrophils % 80.8 H (40.0-70.0) % Potassium (3.6-5.0) mmol/L Chloride (98-107) mmol/L BUN 3 L (7-17) mg/dL Creatinine 0.5 L (0.6-1.2) mg/dL Glucose 101 H (65-100) mg/dL Calcium 7.9 L (8.4-10.2) mg/dL Magnesium (1.7-2.3) mg/dL AST 45 H (5-40) units/L ALT 63 H (7-56) units/L Alkaline Phosphatase 155 H (35-129) units/L Lactate Dehydrogenase (91-180) units/L Total Protein 6.2 L D (6.3-8.2) g/dL Albumin 3.4 L (3.9-5) g/dL Medications & Allergies - Medications Allergies/Adverse Reactions: Allergies No Known Allergies Allergy (Verified 10/02/19 19:13) Home Medications: Home Medications Medication Instructions Recorded Confirmed Last Taken Type Multivitamin Tablet 1 tab PO DAILY 01/05/22 01/05/22 01/04/22 History labetaloL [Labetalol 100mg TAB] 100 mg PO BID #60 tab 01/05/22 Unknown Rx Active Medications: Generic Name Dose Route Start Last Admin Trade Name Freq PRN Reason Stop Dose Admin Acetaminophen 650 mg 01/12/22 14:21 01/15/22 14:44 Acetaminophen 325 Mg Tab PO 650 mg Q4H PRN Administration Pain MILD(1-3)/Fever >100.5/RIZO Docusate Sodium 100 mg 01/13/22 22:00 01/16/22 10:50 Docusate Sodium 100 Mg Cap PO 100 mg BID MICHELET Administration Ampicillin Sodium 2 gm in 100 mls @ 100 mls/hr 01/15/22 15:00 01/16/22 16:03 Ampicillin/Ns 2 Gm/100 Ml IV 01/16/22 21:59 100 mls/hr Q6H MICHELET Administration Protocol Magnesium Sulfate 40 gm in 1,000 mls @ 50 mls/hr 01/15/22 15:00 01/15/22 17:00 Magnesium Sulfate 40gm/1000ml IV 2 gm/hr DIRECT MICHELET 50 mls/hr Administration 2 GM/HR Lactated Ringer's 1,000 mls @ 125 mls/hr 01/15/22 18:11 01/16/22 03:59 Lactated Ringers IV 75 mls/hr DIRECT MICHELET Administration Labetalol HCl 100 mg 01/16/22 22:00 Labetalol 100 Mg Tab PO BID MICHELET Multi-Ingredient Ointment 1 applic 01/12/22 14:21 Lanolin/Zinc/Dimethicone (Lansinoh) 7 Gm TP PRN PRN Sore Nipples Nifedipine 90 mg 01/15/22 23:00 01/16/22 10:50 Nifedipine Xl 90 Mg Tab PO 90 mg QDAY MICHELET Administration Oxycodone/Acetaminophen 1 tab 01/12/22 14:21 01/16/22 16:05 Oxycodone /Acetaminophen 5-325mg Tab PO 1 tab Q6H PRN Administration Pain, Moderate (4-6) Potassium Chloride 40 meq 01/16/22 13:55 01/16/22 15:23 Potassium Chloride Er 20 Meq Tab PO 01/16/22 23:00 40 meq ONCE MICHELET Administration Sodium Chloride 10 ml 01/12/22 15:00 Sodium Chloride 0.9% 10 Ml Flush Syringe IV PRN MICHELET Witch Fe/Glycerin 1 each 01/12/22 14:21 Witch Fe/ Glycerin Pad TP PRN PRN Hemorrhoid/cleansing/soothing
[2022-01-16] MEDS: GENTAMICIN 350 MG in SODIUM CHLORIDE 0.9% 100 ML IV SCH (20:42)
--- NOTE | 2022-01-17 09:01 | Discharge Summary ---
Providers - Providers Date of Admission: 01/11/22 16:19 Date of discharge: 01/17/22 Attending physician: RODRICK CORMIER 01/16/22 02:04 Consult to Physician [CONS] Stat Comment: Consulting Provider: JHONATAN HAYS Physician Instructions: Reason For Exam: Hypertensive urgency, preeclampsia w/ s Primary care physician: RODRICK CORMIER Hospitalization Reason for admission: induction of labor Delivery: Episiotomy: none Laceration: none Other procedures: other (3 Units PRBC's) complications: transfusion, uterine atony Discharge diagnosis: IUP at term delivered baby: female Hospital course: See notes Condition at discharge: Good Disposition: HOME / SELF CARE / HOMELESS Plan - Discharge Medications Prescriptions: labetaloL [Labetalol 100mg TAB] 100 mg PO BID #60 tab NIFEdipine XL [Procardia Xl] 90 mg PO QDAY #30 tablet - Provider Discharge Summary Activity: routine, no sex for 6 weeks, no strenuous exercise Diet: routine Instructions: routine Additional instructions: [] Smoking cessation referral if applicable(refer to patient education folder for contact #) [] Refer to [facility]'s [facility] Booklet Call your doctor immediately for: * Fever > 100.5 * Heavy vaginal bleeding ( >1 pad per hour) * Severe persistent headache * Shortness of breath * Reddened, hot, painful area to leg or breast * Drainage or odor from incision. * Keep incision clean and dry at all times and follow doctor's instructions regarding bathing/showering - Follow up plan Follow up: RODRICK CORMIER MD [Primary Care Provider] - 7 Days
--- NOTE | 2022-01-17 09:59 | Event Note ---
Date: 01/17/22 Date of service: 01/17/22 Principal diagnosis: PPD#5, , PreE. PP, refrac HTN, PPH w/PRBC x3; endomyometritis S: Pt states that she feels much better and she is ready to go home. A: PPD#5 with preeclampsia CHTN much improved with calcium channel bridger Asymptomatic anemia with s/p PRBC x3 units total this admission. 1. Discharge home on Procardia XL 90 daily and Labetalol now 100mg bid 2. Repeat cmp in am for LFT's pending 3. F/U in office next week. She wishes to F/U with [facility]
[2022-01-17] MEDS: DOCUSATE SODIUM 100 MG CAP PO SCH (10:35)
[2022-01-17] MEDS: oxyCODONE /ACETAMINOPHEN 5-325MG TAB PO PRN (10:35)
[2022-01-17 10:41] VITALS: BP 142/96
[2022-01-17] MEDS: NIFEdipine XL 90 MG TAB PO SCH (10:58)
[2022-01-17 11:25] LABS: Alanine Aminotransferase 46 units/L (7-56); Albumin 3.4 g/dL (3.9-5); Blood Urea Nitrogen 5 mg/dL (7-17); Calcium 8.8 mg/dL (8.4-10.2); Hemolysis Index 5
[2022-01-17 11:40] LABS: BUN/Creatinine Ratio 10
--- NOTE | 2022-01-17 12:06 | Progress Note ---
Assessment and Plan Assessment and plan: Patient is a 31-year-old female with history of PIH who presented with severe hypertension of 170/110 to the hospital was admitted and is currently postop day 4 with severe preeclampsia and severe anemia. Patient early hours of this morning was noted to have severe blood pressure with tachycardia and sense of ill feeling. Her blood pressure was noted to be severely elevated as a result was transferred to the ICU IMCU for further management. She had been on Procardia XL 90 mg daily and despite this blood pressure was still greater than 160/110. Patient was also considered to have preeclampsia and started on magnesium which was infusing. He was she was subsequently treated with IV labetalol according to ACOG maternal hypertension bundle. This morning on reevaluation the patient's blood pressure is down to 140 systolic She is ambulating denies any chest pain nausea vomiting or diarrhea at this time. day 5 Post gestational preeclampsia Hypertensive urgency now resolved ANEMIA HYPOKALEMIA PLAN Agree with continued PROCARDIA and addition of labetalol for discharge History Interval history: Patient ready for discharge, no new complaints Hospitalist Physical - Physical exam Narrative exam: VITAL SIGNS: Reviewed. GENERAL: The patient appears normally developed, patient seen and ambulating family at bedside. Vital signs as documented. HEAD: No signs of head trauma. EYES: Pupils are equal. Extraocular motions intact. EARS: Hearing grossly intact. MOUTH: Oropharynx is normal. NECK: No adenopathy, no JVD. CHEST: Chest with clear breath sounds bilaterally. No wheezes, rales, or rhonchi. CARDIAC: Regular rate and rhythm. S1 and S2, without murmurs, gallops, or rubs. VASCULAR: No Edema. Peripheral pulses normal and equal in all extremities. ABDOMEN: Soft, non tender and non distended. No rebound or guarding, and no masses palpated. Bowel Sounds normal. MUSCULOSKELETAL: Good range of motion of all major joints. Extremities without clubbing, cyanosis or edema. NEUROLOGIC EXAM: Alert and oriented x 3 No focal sensory or strength deficits. Speech normal. Follows commands. PSYCHIATRIC: Mood normal. SKIN: detail exam as documented in skin assessment - Constitutional Vitals: Temp Pulse Resp BP Pulse Ox 98.1 F 101 H 20 142/96 100 01/17/22 08:45 01/17/22 08:45 01/17/22 08:45 01/17/22 10:40 01/17/22 08:45 General appearance: Present: no acute distress Results - Labs CBC & Chem 7: 01/16/22 13:37 01/17/22 10:49 Labs: Laboratory Last Values WBC 8.5 K/mm3 (4.5-11.0) 01/16/22 13:37 RBC 3.49 M/mm3 (3.65-5.03) L 01/16/22 13:37 Hgb 9.9 gm/dl (10.1-14.3) L 01/16/22 13:37 Hct 29.6 % (30.3-42.9) L D 01/16/22 13:37 MCV 85 fl (79-97) 01/16/22 13:37 MCH 28 pg (28-32) 01/16/22 13:37 MCHC 34 % (30-34) 01/16/22 13:37 RDW 17.3 % (13.2-15.2) H 01/16/22 13:37 Plt Count 193 K/mm3 (140-440) 01/16/22 13:37 Lymph % (Auto) 13.8 % (13.4-35.0) 01/16/22 13:37 [place] % (Auto) 4.1 % (0.0-7.3) 01/16/22 13:37 Eos % (Auto) 1.1 % (0.0-4.3) 01/16/22 13:37 Baso % (Auto) 0.2 % (0.0-1.8) 01/16/22 13:37 Lymph # (Auto) 1.2 K/mm3 (1.2-5.4) 01/16/22 13:37 [place] # (Auto) 0.3 K/mm3 (0.0-0.8) 01/16/22 13:37 Eos # (Auto) 0.1 K/mm3 (0.0-0.4) 01/16/22 13:37 Baso # (Auto) 0.0 K/mm3 (0.0-0.1) 01/16/22 13:37 Seg Neutrophils % 80.8 % (40.0-70.0) H 01/16/22 13:37 Seg Neutrophils # 6.9 K/mm3 (1.8-7.7) 01/16/22 13:37 Sodium 141 mmol/L (137-145) 01/17/22 10:49 Potassium 4.0 mmol/L (3.6-5.0) 01/17/22 10:49 Chloride 101.6 mmol/L (98-107) 01/17/22 10:49 Carbon Dioxide 29 mmol/L (22-30) 01/17/22 10:49 Anion Gap 14 mmol/L 01/17/22 10:49 BUN 5 mg/dL (7-17) L 01/17/22 10:49 Creatinine 0.5 mg/dL (0.6-1.2) L 01/17/22 10:49 Estimated GFR > 60 ml/min 01/17/22 10:49 BUN/Creatinine Ratio 10 % 01/17/22 10:49 Glucose 91 mg/dL (65-100) 01/17/22 10:49 Uric Acid 5.6 mg/dL (3.5-7.6) 01/15/22 17:51 Calcium 8.8 mg/dL (8.4-10.2) 01/17/22 10:49 Magnesium 4.40 mg/dL (1.7-2.3) H 01/16/22 01:06 Total Bilirubin 0.20 mg/dL (0.1-1.2) 01/17/22 10:49 AST 23 units/L (5-40) 01/17/22 10:49 ALT 46 units/L (7-56) 01/17/22 10:49 Alkaline Phosphatase 140 units/L (35-129) H 01/17/22 10:49 Lactate Dehydrogenase 564 units/L (91-180) H 01/17/22 10:49 Total Protein 6.3 g/dL (6.3-8.2) 01/17/22 10:49 Albumin 3.4 g/dL (3.9-5) L 01/17/22 10:49 Albumin/Globulin Ratio 1.2 % 01/17/22 10:49 Urine Color Colorless (Yellow) 01/16/22 Unknown Urine Turbidity Clear (Clear) 01/16/22 Unknown Urine pH 7.0 (5.0-7.0) 01/16/22 Unknown Ur Specific [place] 1.005 (1.003-1.030) 01/16/22 Unknown Urine Protein <15 mg/dl mg/dL (Negative) 01/16/22 Unknown Urine Glucose (UA) Neg mg/dL (Negative) 01/16/22 Unknown Urine Ketones Neg mg/dL (Negative) 01/16/22 Unknown Urine Blood Lg (Negative) 01/16/22 Unknown Urine Nitrite Neg (Negative) 01/16/22 Unknown Urine Bilirubin Neg (Negative) 01/16/22 Unknown Urine Urobilinogen < 2.0 mg/dL (<2.0) 01/16/22 Unknown Ur Leukocyte Esterase Tr (Negative) 01/16/22 Unknown Urine WBC (Auto) 6.0 /HPF (0.0-6.0) 01/16/22 Unknown Urine RBC (Auto) 44.0 /HPF (0.0-6.0) 01/16/22 Unknown U Epithel Cells (Auto) 1.0 /HPF (0-13.0) 01/16/22 Unknown Urine Bacteria (Auto) 1+ /HPF (Negative) 01/11/22 Unknown Urine Mucus Few /HPF 01/16/22 Unknown Urine Creatinine 18.1 mg/dL (0.1-20.0) 01/16/22 Unknown Urine Total Protein 6 mg/dL (5-11.8) 01/16/22 Unknown SARS-CoV-2 (PCR) Negative (Negative) 01/12/22 09:57 Blood Type A POSITIVE 01/15/22 09:18 Antibody Screen Negative 01/15/22 09:18 Crossmatch See Detail 01/15/22 09:18 Rodriguez/IV: Voiding Method Bedside Commode Active Medications - Current Medications Current Medications: Generic Name Dose Route Start Last Admin Trade Name Russellq PRN Reason Stop Dose Admin Acetaminophen 650 mg 01/12/22 14:21 01/15/22 14:44 Acetaminophen 325 Mg Tab PO 650 mg Q4H PRN Administration Pain MILD(1-3)/Fever >100.5/RIZO Docusate Sodium 100 mg 01/13/22 22:00 01/17/22 10:35 Docusate Sodium 100 Mg Cap PO 100 mg BID MICHELET Administration Magnesium Sulfate 40 gm in 1,000 mls @ 50 mls/hr 01/15/22 15:00 01/15/22 17:00 Magnesium Sulfate 40gm/1000ml IV 2 gm/hr DIRECT MICHELET 50 mls/hr Administration 2 GM/HR Lactated Ringer's 1,000 mls @ 125 mls/hr 01/15/22 18:11 01/16/22 20:43 Lactated Ringers IV Infused DIRECT MICHELET Infusion Labetalol HCl 100 mg 01/16/22 22:00 01/17/22 10:40 Labetalol 100 Mg Tab PO 100 mg BID MICHELET Administration Multi-Ingredient Ointment 1 applic 01/12/22 14:21 Lanolin/Zinc/Dimethicone (Lansinoh) 7 Gm TP PRN PRN Sore Nipples Nifedipine 90 mg 01/15/22 23:00 01/17/22 10:58 Nifedipine Xl 90 Mg Tab PO 90 mg QDAY MICHELET Administration Oxycodone/Acetaminophen 1 tab 01/12/22 14:21 01/17/22 10:35 Oxycodone /Acetaminophen 5-325mg Tab PO 1 tab Q6H PRN Administration Pain, Moderate (4-6) Sodium Chloride 10 ml 01/12/22 15:00 Sodium Chloride 0.9% 10 Ml Flush Syringe IV PRN MICHELET Witch Fe/Glycerin 1 each 01/12/22 14:21 Witch Fe/ Glycerin Pad TP PRN PRN Hemorrhoid/cleansing/soothing
--- NOTE | 2022-01-17 12:27 | Ultrasound Report ---
US pelvic limited INDICATION / CLINICAL INFORMATION: questionable retained poc. COMPARISON: None available. TECHNIQUE: Limited grayscale and color doppler imaging of the uterus to evaluate for retained product s of conception. FINDINGS/IMPRESSION: 1. The endometrium appears mildly thickened measuring 1.1 cm without internal vascularity. 2. No evidence of retained products of conception. Scribed by: Laureen Hurley RDMS, RVT, SARAI Scribed: 01/15/2022 9:50 AM I have reviewed the images, agree with this report, and edited this report as needed. Signer Name: Kasi Frausto MD Signed: 01/15/2022 10:54 AM Workstation Name: [id number]
== END 2022-01-17 15:08 | disposition home or self-care (01) | DRG 774 ==
LOC: TRG 14:21 → APU 14:22 → TRG 16:19 → LD 16:19 → OB 01-13 11:37 → LD 01-15 15:56 → IMCU 01-16 04:17 → OB 01-16 15:42
PROVIDERS: ADMIT Obstetrics & Gynecology; ATTEND Obstetrics & Gynecology
PROC: 10E0XZZ Delivery of Products of Conception, External Approach (ICD-10-PCS; principal; 2022-01-12)
PROC: 10907ZC Drainage of Amniotic Fluid, Therapeutic from Products of Conception, Via Natural or Artificial Opening (ICD-10-PCS; 2022-01-12)
PROC: 3E0R3BZ Introduction of Anesthetic Agent into Spinal Canal, Percutaneous Approach (ICD-10-PCS; 2022-01-12)
PROC: 00HU33Z Insertion of Infusion Device into Spinal Canal, Percutaneous Approach (ICD-10-PCS; 2022-01-12)
PROC: 30233N1 Transfusion of Nonautologous Red Blood Cells into Peripheral Vein, Percutaneous Approach (ICD-10-PCS; 2022-01-13)
DX: O34.219 Maternal care for unspecified type scar from previous cesarean delivery (principal); O86.12 Endometritis following delivery; Z20.822 Contact with and (suspected) exposure to COVID-19; O60.14X0 Preterm labor third trimester with preterm delivery third trimester, not applicable or unspecified; Z90.49 Acquired absence of other specified parts of digestive tract; O99.62 Diseases of the digestive system complicating childbirth; O99.214 Obesity complicating childbirth; E66.9 Obesity, unspecified; O16.4 Unspecified maternal hypertension, complicating childbirth; Z3A.36 36 weeks gestation of pregnancy; Z37.0 Single live birth; E78.5 Hyperlipidemia, unspecified; O02.9 Abnormal product of conception, unspecified; O08.5 Metabolic disorders following an ectopic and molar pregnancy; O99.02 Anemia complicating childbirth
CPT/HCPCS: 36415; 76815; 76816; 76819; 76820; 76857; 80053; 81001; 82565; 82570; 83615; 83735; 84156; 84450; 84460; 84550; 85014; 85018; 85025; 85027; 86850; 86900; 86901; 86920; G0378; J3490; J7502; J0290; J0360; J1580; J2405; J2540; J2590; J3010; J3475; J7030; J7040; J7120; P9016; U0003